=== PATIENT | male | born 1960 | race Caucasian/White ===

== ENCOUNTER 2024-10-08 11:55 | Emergency (ER) | payer MEDICAID, OTHER ==
[~2024-10-08] VITALS: Ht 185.4 cm; Wt 104.5 kg
--- NOTE | 2024-10-08 12:59 | DVH ---
EXAM: CT HEAD WITHOUT CONTRAST INDICATION: HTN, PRITCHETT TECHNIQUE: CT of the head without intravenous contrast. Radiation Dose : 1. Head: CT Dose: CTDI volume is 57 mGy. Dose-length product is 914 mGy*cm The dose indicators for CT are the volume Computed Tomography (CT) Dose Index (CTDIvol) and the Dose Length Product (DLP), and are measured in units of mGy and mGy-cm, respectively. These indicators are not patient dose, but values generated from the CT scanner acquisition factors. The report includes radiation exposure data for exposures received during this examination. COMPARISON: None FINDINGS: There is no evidence of acute intracranial hemorrhage, extra-axial collection, mass effect, midline s hift, herniation or hydrocephalus. The ventricles, sulci and cisterns are age appropriate. The patel-white differentiation is intact. Patchy periventricular and subcortical white matter hypoattenuation is nonspecific but may be related to small vessel ischemic disease. The visualized paranasal sinuses and mastoid air cells are clear. The surrounding soft tissues and osseous structures are unremarkable. IMPRESSION: No acute intracranial abnormality. Radiation optimization: All CT scans at this facility use at least one of these dose optimization sofie hniques: automated exposure control mA and/or kV adjustment per patient size (includes targeted exam s where dose is matched to clinical indication) or iterative reconstruction.
--- NOTE | 2024-10-08 12:59 | DVH ---
CHEST RADIOGRAPH Indication: HTN, PRITCHETT Technique: Single frontal view of the chest was obtained COMPARISON: None FINDINGS: Lines and Tubes: None Lungs: Clear Pleura: No effusion. No pneumothorax. Cardiomediastinal contours: Unremarkable Bones: Unremarkable IMPRESSION: No acute disease.
[2024-10-08 13:42] LABS: Basophils # (auto) 0 10 ^3/uL (0-0.2); Basophils % (auto) 0.7 % (0.0-2.0); Eosinophils # (auto) 0.1 10 ^3/uL (0-0.8); Eosinophils % (auto) 1.6 % (0.0-7.0); Hematocrit 45.8 % (41.0-53.0); Hemoglobin 15.6 g/dL (13.5-17.5); Lymphocytes # (auto) 1.2 10 ^3/uL (0.4-5.4); Lymphocytes % (auto) 17.1 % (10.0-50.0); Mean Corpuscular Hgb Conc. 34.2 g/dL (32.0-36.0); Mean Corpuscular Volume 96.6 fL (80.0-100.0); Monocytes # (auto) 0.6 10 ^3/uL (0-1.3); Monocytes % (auto) 8.6 % (0.0-12.0); Neutrophils # (auto) 4.9 10 ^3/uL (1.6-8.6); Nucleated Red Blood Cells % 0.1 %; Platelet Count (auto) 151 10^3/uL (140-450); Red Blood Cells 4.74 10^6/uL (4.5-5.90); Red Cell Distribution Width 14.1 % (11.8-14.3); White Blood Cell 6.8 10^3/uL (4.4-10.8)
[2024-10-08 14:07] LABS: Albumin 4.3 g/dL (3.2-4.8); Alkaline Phosphatase 79 U/L (46-116); Anion Gap 7 (5-15); Aspartate Aminotransferase 35 U/L (13-40); BUN/Creatinine Ratio 17.2 (10.0-20.0); Blood Urea Nitrogen 16 mg/dL (9-23); Calcium 10.1 mg/dL (8.7-10.4); Carbon Dioxide 29 mmol/L (20-31); Chloride 104 mmol/L (98-107); Potassium 4.6 mmol/L (3.5-5.1); Sodium 140 mmol/L (136-145)
[2024-10-08 14:08] LABS: Bilirubin, Total 0.8 mg/dL (0.2-1.0); Total Protein 6.9 g/dL (5.7-8.2)
[2024-10-08 14:21] LABS: Alanine Aminotransferase 51 U/L (7-40); Glucose 159 mg/dL (74-106)
--- NOTE | 2024-10-08 16:44 | ED.PDOC ---
HPI Comments HPI: 64 Y M, with PMHX HTN, HLD, DM and A-FIB presents to the ED with CC of high blood pressure. Patient states, that he woke up last night on 10/07/22 with a mild sinus headache and due to his medical history decided to check his blood pressure; which read at 219/125 at 0300. Patient relays, that he recently stopped taking his medication due to a dental procedure which he was scheduled for and believes that his symptoms are in relation to this. Patient denies tobacco usage, illicit drug usage, or ETOH consumption. Patient denies headache, chest pain, chills, N/V/D or body aches. Initial Vital Signs: Temp : 99.8 BP: 171/98 HR:57 RR:18 SpO2: 96 Past Medical History: HTN, HLD, DM, AFIB Past Surgical History: Denies Social History: Denies smoking, ETOH, or drug use. Medications: ELIQUIS, LISINOPRIL, METOPROL Allergies: NKDA REVIEW OF SYSTEMS: CONSTITUTIONAL: Denies acute: fever, diaphoresis, chills, generalized weakness. HEAD: Denies acute: headache, photophobia Eyes: Denies acute: Double vision, vision loss, eye pain, eye discharge. EARS: Denies acute: tinnitus, hearing loss, ear discharge, ear pain, THROAT: Denies acute: sore throat, swelling, difficulty swallowing , pain with swallowing, change in voice. NECK: Denies acute: neck pain, neck swelling, stiff neck. HEART: Denies acute : chest pain, palpitations, LUNGS: Denies acute: SOB, wheezing, cough, hemoptysis ABDOMEN: Denies acute: abdominal pain, Nausea, Vomiting, diarrhea, melena , hematemesis, hematochezia SKIN: Denies acute: rash, redness, lesions, itchiness. EXTREMITIES: Denies acute: calf pain, numbness, tingling, weakness, denies pain in extremity. Denies acute: Low back pain. Neuro: Denies acute: focal neurological deficit, motor or sensory focal neurological deficit, tremors, seizure like activity, confusion, dizziness, change in mental status, loss of bowel or bladder function, cauda equina like symptoms. : Denies acute: dysuria, hematuria, flank pain, increase in urinary frequency. PSYCH: Denies acute: hallucination, suicidal ideation, homicidal ideation. PHYSICAL EXAM: General: no acute distress, awake and alert. Head: normocephalic, atraumatic. Neck: supple, trachea is midline, no swelling. Throat: Normal phonation. Eyes:, no erythema, no purulent discharge, no proptosis, no icterus. Heart: regular rate, regular rhythm, no significant murmur appreciated. Lungs: no apparent respiratory distress, Able to speak in full sentences. No wheezing, no rhonchi, no crackles. No stridors Clear to auscultation bilaterally. Abdomen: non tender to palpation, non distended, soft, no guarding, no rebound, + bowel sounds. Neuro: Awake, Alert, oriented to name, self, situation, follows commands GCS=15. Speech is normal. Skin: no petechia, no purpura, no cyanosis, non-pale, not jaundice. Lower extremities: --no - Pitting edema no deformity, no focal swelling, no calf TTP. Makes eye contact. moves all four extremities. Face: no apparent facial droop. Ambulating in the ED independently. Chief Complaint: High Blood Pressure Time Seen by MD: 16:00 Primary Care Provider: OLMAN Reviewed Notes: Nurses Notes, Medications, Allergies Allergies: Coded Allergies: NO KNOWN ALLERGIES (Unverified , 10/06/24) Information Source: Patient Mode of Arrival: Ambulatory Timing: Days Duration: Since onset Prehospital treatment: None Cardiac Risk Factors: None PE Risk Factors: None History of: None Was a procedure done? Was a procedure done?: No CP Differential Dx Differential Diagnosis: Anxiety / Panic Attack Differential Diagnosis: HTN Accelerated X-Ray, Labs, Meds, VS Vital Signs Date Time Temp Pulse Resp B/P (MAP) Pulse Ox O2 Delivery O2 Flow Rate FiO2 10/08/24 16:46 72 16 138/84 (102) 98 10/08/24 12:34 99.8 57 18 171/90 (117) 96 10/08/24 12:30 60 16 139/74 (95) 98 10/08/24 12:08 53 Lab Test 10/08/24 14:45 10/08/24 12:59 Range/Units Troponin I High Sensitivity < 3 L 3 L </=54 ng/L White Blood Count 6.8 4.4-10.8 10^3/uL Red Blood Count 4.74 4.5-5.90 10^6/uL Hemoglobin 15.6 13.5-17.5 g/dL Hematocrit 45.8 41.0-53.0 % Mean Corpuscular Volume 96.6 80.0-100.0 fL Mean Corpuscular Hemoglobin 33.0 H 28.0-32.0 pg Mean Corpuscular Hemoglobin Concent 34.2 32.0-36.0 g/dL Red Cell Distribution Width 14.1 11.8-14.3 % Platelet Count 151 140-450 10^3/uL Mean Platelet Volume 8.6 6.9-10.8 fL Neutrophils (%) (Auto) 72.0 37.0-80.0 % Lymphocytes (%) (Auto) 17.1 10.0-50.0 % Monocytes (%) (Auto) 8.6 0.0-12.0 % Eosinophils (%) (Auto) 1.6 0.0-7.0 % Basophils (%) (Auto) 0.7 0.0-2.0 % Neutrophils # (Auto) 4.9 1.6-8.6 10 ^3/uL Lymphocytes # (Auto) 1.2 0.4-5.4 10 ^3/uL Monocytes # (Auto) 0.6 0-1.3 10 ^3/uL Eosinophils # (Auto) 0.1 0-0.8 10 ^3/uL Basophils # (Auto) 0 0-0.2 10 ^3/uL Nucleated Red Blood Cells 0.1 % Sodium Level 140 136-145 mmol/L Potassium Level 4.6 3.5-5.1 mmol/L Chloride Level 104 98-107 mmol/L Carbon Dioxide Level 29 20-31 mmol/L Anion Gap 7 5-15 Blood Urea Nitrogen 16 9-23 mg/dL Creatinine 0.93 0.700-1.30 mg/dL Glomerular Filtration Rate Calc 91 >90 mL/min BUN/Creatinine Ratio 17.2 10.0-20.0 Serum Glucose 159 H 74-106 mg/dL Lactic Acid Level 1.3 0.4-2.0 mmol/L Calcium Level 10.1 8.7-10.4 mg/dL Total Bilirubin 0.8 0.2-1.0 mg/dL Aspartate Amino Transferase (AST) 35 13-40 U/L Alanine Aminotransferase (ALT) 51 H 7-40 U/L Alkaline Phosphatase 79 46-116 U/L Total Protein 6.9 5.7-8.2 g/dL Albumin 4.3 3.2-4.8 g/dL Time of 1ST Reevaluation: 16:48 Reevaluation 1ST: Resolved Patient Education/Counseling: Diagnosis, Treatment Family Education/Counseling: No Family Present Departure 1 Departure Time of Disposition: 16:47 Impression: Primary Impression: Hypertension Disposition: 01 HOME / SELF CARE / HOMELESS Condition: Stable Additional Instructions: Additional discharge instructions: You MUST follow-up with your primary care/family doctor in 1 to 2 days. If you are unable to see your primary care/family doctor, please return to our emergency room for re-assessment and re-evaluation in 1 to 2 days. Return to the emergency room here in our facility or to the nearest ER [facility] if your symptoms change or worsen. CONSULTATIONS: you MUST Follow-up for consultation as soon as possible with: -cardiology in 1-2 days. Please call for appointment. You MUST call the consultants office yourself to make an appointment. You may need to arrange that through your insurance and/or your primary/family doctor. If you are unable to see the sales consultant in 1 to 2 days, you must return to our emergency room (or any other ER of your choice) for re-assessment and re- evaluation. Adequate fluid hydration. Salt restrictions. Monitoring blood pressure at home at least 3 times a day. Discharged With: Self Critical Care Note Critical Care Time?: No Stability Stability form required: No Heart Score Heart Score: Heart Score Response (Comments) Value History N/A 0 EKG N/A 0 Age N/A 0 Risk Factors N/A 0 Troponin N/A 0 Total 0 I personally scribed for DARREN COLEMAN DO ([email or web address]) on 10/08/24 at 16:44. Electronically submitted by Edwige Frank ([email or web address]). I personally scribed for DARREN COLEMAN DO ([email or web address]) on 10/08/24 at 16:54. Electronically submitted by Edwige Frank ([email or web address]). DARREN COLEMAN DO Oct 08, 2024 16:44
[2024-10-08 16:46] VITALS: BP 138/84
[2024-10-08 16:58] VITALS: PULSE 72; RESP 16; O2SAT 98
--- NOTE | 2024-10-08 18:52 | ECG ---
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
== END 2024-10-08 16:59 | disposition home or self-care (01) ==
LOC: ER 11:56
DX: I10 Essential (primary) hypertension (principal); E11.9 Type 2 diabetes mellitus without complications; E78.5 Hyperlipidemia, unspecified; I48.91 Unspecified atrial fibrillation; R51.9 Headache, unspecified
CPT/HCPCS: 36415; 70450; 71045; 80053; 83605; 84484; 85025; 93005

== ENCOUNTER 2024-10-10 00:22 | Emergency (ER) | payer OTHER ==
[~2024-10-10] VITALS: Ht 185.4 cm; Wt 105.2 kg
[2024-10-10 03:55] VITALS: BP 144/71; PULSE 60; RESP 16; TEMP 97.4; O2SAT 98
--- NOTE | 2024-10-10 04:00 | ED.PDOC ---
History of Present Illness HPI Comments * 64-year-old came to ER for high blood pressure. Patient has history of hypertension and diabetes, and has good compliance to his medications. Noted for the past few days his blood pressure has been elevated, and he has been seen here the past 2 nights were similar complaints. Earlier at home started having headaches and noted that his blood pressure was systolic 170 so he decided to come back to the ER. Upon arrival blood pressure was 140/78 mmHg. Chief Complaint: High Blood Pressure Time Seen by MD: 03:59 Primary Care Provider: OLMAN Reviewed Notes: Nurses Notes Allergies: Coded Allergies: NO KNOWN ALLERGIES (Unverified , 10/06/24) Information Source: Patient Mode of Arrival: Ambulatory Severity: Moderate Timing: Days Duration: Intermittent Prehospital treatment: None Past Medical History PAST MEDICAL HISTORY: AFIB, DM, HTN Surgical History: Denies all surgeries Family History Family History: Reviewed,noncontributory to illness Social History Smoker: Non-Smoker Alcohol: Denies ETOH Use Drugs: Denies Drug Use Lives In: Home Constitutional: denies: chills, diaphoresis, fatigue, fever, malaise, sweats, weakness, others EENTM: denies: blurred vision, double vision, ear bleeding, ear discharge, ear drainage, ear pain, ear ringing, eye pain, eye redness, hearing loss, mouth pain, mouth swelling, nasal discharge, nose bleeding, nose congestion, nose pain, photophobia, tearing, throat pain, throat swelling, voice changes, others Respiratory: denies: cough, hemoptysis, orthopnea, SOB at rest, shortness of breath, SOB with excertion, stridor, wheezing, others Cardiovascular: denies: chest pain, dizzy spells, diaphoresis, Dyspnea on exertion, edema, irregular heart beat, left arm pain, lightheadedness, palpitations, PND, syncope, others Gastrointestinal: denies: abdomen distended, abdominal pain, blood streaked bowels, constipated, diarrhea, dysphagia, difficulty swallowing, hematemesis, melena, nausea, poor appetite, poor fluid intake, rectal bleeding, rectal pain, vomiting, others Genitourinary: denies: burning, dysuria, flank pain, frequency, hematuria, incontinence, penile discharge, penile sore, pain, testicle pain, testicle swelling, urgency, others Neurological: reports: headache; denies: dizziness, fainting, left sided numbness, left sided weakness, numbness, paresthesia, pre-existing deficit, right sided numbness, right sided weakness, seizure, speech problems, tingling, tremors, weakness, others Musculoskeletal: denies: back pain, gout, joint pain, joint swelling, muscle pain, muscle stiffness, neck pain, others Integumetry: denies: bruises, change in color, change in hair/nails, dryness, laceration, lesions, lumps, rash, wounds, others Allergic/Immunocompromised: denies: Difficulty Healing, Frequent Infections, Hives, Itching, others Hematologic/Lymphatic: denies: anemia, blood clots, easy bleeding, easy bruising, swollen glands, others Endocrine: denies: excessive hunger, excessive sweating, excessive thirst, excessive urination, flushing, intolerance to cold, intolerance to heat, unexplained weight gain, unexplained weight loss, others Psychiatric: denies: anxiety, bipolar disorder, depression, hopeless, panic disorder, schizophrenia, sleepless, suicidal, others Physical Exam General Appearance: No Apparent Distress, Normal HEENT: Normal ENT Inspection, Pharynx Normal, TMs Normal Neck: Full Range of Motion, Non-Tender, Normal, Normal Inspection Respiratory: Chest Non-Tender, Lungs Clear, No Accessory Muscle Use, No Respiratory Distress, Normal Breath Sounds Cardiovascular: No Edema, No JVD, No Murmur, No Gallop, Normal Peripheral Pulses, Regular Rate/Rhythm Breast Exam: Deferred Gastrointestinal: No Organomegaly, Non Tender, No Pulsatile Mass, Normal Bowel Sounds, Soft Genitalia: Deferred Pelvic: Deferred Rectal: Deferred Extremities: No calf tenderness, Normal capillary refill, Normal inspection, Normal range of motion, Non-tender, No pedal edema Musculoskeletal : Apperance: Normal Neurologic: Alert, automotive service 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 Was a procedure done?: No Differential Dx Considerations may include: Pneumonia of her respiratory tract infection PE pulmonary effusion NE angina atypical chest pain X-Ray, Labs, Meds, VS Vital Signs Date Time Temp Pulse Resp B/P (MAP) Pulse Ox O2 Delivery O2 Flow Rate FiO2 10/10/24 03:55 97.4 60 16 144/71 (95) 98 97.4 10/10/24 03:55 60 16 98 Room Air* 0 21 10/10/24 00:44 98.0 63 16 140/78 (98) 98 Time of 1ST Reevaluation: 03:55 Reevaluation 1ST: Unchanged Patient Education/Counseling: Diagnosis, Treatment Family Education/Counseling: No Family Present Departure 1 Departure Time of Disposition: 04:28 Impression: Primary Impression: Hypertension Qualified Codes: I10 - Essential (primary) hypertension Disposition: 01 HOME / SELF CARE / HOMELESS Condition: Stable Additional Instructions: Reassessed patient, vital signs stable. Denies any new symptoms. Patient is able to tolerate PO and ambulate/be mobile at their baseline without concern. Risks and benefits of all medications given or prescribed, if any, discussed. All lab work, imaging and diagnostic studies were reviewed by me. The patient was counseled extensively on my clinical impression, diagnosis, expected course of the disease, and plan, including their follow-up care. Will discharge patient. Patient instructed to follow up with Primary Care Physician within 24-48 hours. Strict return precautions given for further exacerbation of symptoms or for new symptoms. The patient was given the opportunity to ask questions and all questions were answered by myself and the nursing/tech staff. Patient is in agreement with the care plan. The patient verbally expressed understanding of the discharge instructions, including the reasons to return to the Emergency Department. Discharged With: Self Critical Care Note Critical Care Time?: No Stability Stability form required: No Heart Score Heart Score: Heart Score Response (Comments) Value History N/A 0 EKG N/A 0 Age N/A 0 Risk Factors N/A 0 Troponin N/A 0 Total 0 I personally scribed for DILLON HOUSTON MD ([email or web address]) on 10/10/24 at 04:00. Flora ctronically submitted by Kirk Strong ([email or web address]). DILLON HOUSTON MD Oct 10, 2024 04:00
== END 2024-10-10 04:14 | disposition home or self-care (01) ==
LOC: ER 00:22
DX: I10 Essential (primary) hypertension (principal); E11.9 Type 2 diabetes mellitus without complications

== ENCOUNTER 2024-12-07 04:32 | Inpatient (IN) | payer OTHER ==
[~2024-12-07] VITALS: Ht 185.4 cm; Wt 103.5 kg
--- NOTE | 2024-12-07 04:53 | ECG ---
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
--- NOTE | 2024-12-07 04:54 | ED.PDOC ---
HPI Comments 64-year-old male with a history of hypertension, diabetes, and AFib brought in by family complaining of palpitations that woke him from sleep about an hour and a half ago. He denies any chest pain, shortness a breath, nausea, vomiting or diaphoresis. He does state that his heart is racing. He also admits to drinking alcohol heavily yesterday afternoon. Chief Complaint: Palpitations Time Seen by MD: 04:44 Primary Care Provider: OLMAN Allergies: Coded Allergies: NO KNOWN ALLERGIES (Unverified , 10/06/24) Mode of Arrival: Ambulatory Past Medical History PAST MEDICAL HISTORY: AFIB, DM, HTN Surgical History: Denies all surgeries Family History Family History: Reviewed,noncontributory to illness Social History Smoker: Non-Smoker Alcohol: Occasionally Drugs: Denies Drug Use Lives In: Home All Other Systems: Reviewed and Negative (Comprehensive systems review obtained and negative except for what is stated in the HPI.) Physical Exam General Appearance: No Apparent Distress HEENT: PERRL/EOMI Neck: Full Range of Motion, Normal Inspection Respiratory: Lungs Clear, No Accessory Muscle Use, No Respiratory Distress, Normal Breath Sounds Cardiovascular: Irregular, No Edema, No JVD, Tachycardia Breast Exam: Deferred Gastrointestinal: Non Tender, Soft Genitalia: Deferred Pelvic: Deferred Rectal: Deferred Extremities: Normal inspection, Normal range of motion, Non-tender, No pedal edema Neurologic: Alert (Oriented x4), Normal Affect, Normal Mood, Other (Ambulatory. No gross focal deficit.) Cerebellar Function: NOT DONE Reflexes: NOT DONE Skin: Dry, Normal Color, Warm Lymphatic: NOT DONE EKG EKG : Comments AFib with RVR, rate 141, normal QRS interval, QTC prolonged at 493, normal axis, normal QRS, lateral ST depression Was a procedure done? Was a procedure done?: No CP Differential Dx Differential Diagnosis: A-fib, A-Flutter, Anxiety / Panic Attack, Atrial Dysrhythmia, SC, Pulmonary Embolus Differential Diagnosis: CHF Differential Diagnosis: Pericarditis X-Ray, Labs, Meds, VS Vital Signs Date Time Temp Pulse Resp B/P (MAP) Pulse Ox O2 Delivery O2 Flow Rate FiO2 12/07/24 06:00 142 101/62 12/07/24 05:51 145 101/52 12/07/24 05:32 133 12/07/24 05:19 98.2 147 19 127/87 (100) 97 98.2 12/07/24 05:16 147 19 99 Room Air* 0 21 12/07/24 05:13 145 127/87 12/07/24 04:39 141 12/07/24 04:36 97.9 141 14 147/78 (101) 97 Lab Test 12/07/24 04:46 12/07/24 04:44 Range/Units White Blood Count 6.3 4.4-10.8 10^3/uL Red Blood Count 4.02 L 4.5-5.90 10^6/uL Hemoglobin 13.1 L 13.5-17.5 g/dL Hematocrit 37.8 L 41.0-53.0 % Mean Corpuscular Volume 93.8 80.0-100.0 fL Mean Corpuscular Hemoglobin 32.5 H 28.0-32.0 pg Mean Corpuscular Hemoglobin Concent 34.7 32.0-36.0 g/dL Red Cell Distribution Width 13.7 11.8-14.3 % Platelet Count 158 140-450 10^3/uL Mean Platelet Volume 8.7 6.9-10.8 fL Neutrophils (%) (Auto) 55.8 37.0-80.0 % Lymphocytes (%) (Auto) 26.9 10.0-50.0 % Monocytes (%) (Auto) 12.7 H 0.0-12.0 % Eosinophils (%) (Auto) 4.1 0.0-7.0 % Basophils (%) (Auto) 0.5 0.0-2.0 % Neutrophils # (Auto) 3.5 1.6-8.6 10 ^3/uL Lymphocytes # (Auto) 1.7 0.4-5.4 10 ^3/uL Monocytes # (Auto) 0.8 0-1.3 10 ^3/uL Eosinophils # (Auto) 0.3 0-0.8 10 ^3/uL Basophils # (Auto) 0 0-0.2 10 ^3/uL Nucleated Red Blood Cells 0.2 % Prothrombin Time 10.9 9.3-11.8 sec Prothrombin Time INR 1.03 0.9-1.15 Activated Partial Thromboplast Time 31.0 24.5-34.5 SEC Sodium Level 134 L 136-145 mmol/L Potassium Level 4.1 3.5-5.1 mmol/L Chloride Level 99 98-107 mmol/L Carbon Dioxide Level 24 20-31 mmol/L Anion Gap 11 5-15 Blood Urea Nitrogen 38 H 9-23 mg/dL Creatinine 1.02 0.700-1.30 mg/dL Glomerular Filtration Rate Calc 81 >90 mL/min BUN/Creatinine Ratio 37.3 H 10.0-20.0 Serum Glucose 105 74-106 mg/dL Calcium Level 11.1 H 8.7-10.4 mg/dL Magnesium Level 1.6 1.6-2.6 mg/dL Troponin I High Sensitivity 5 </=54 ng/L B-Type Natriuretic Peptide 34.36 0-100 pg/mL Plasma/Serum Blood Alcohol Pending Urine Color Pending Urine Clarity Pending Urine pH Pending Urine Specific Donald Pending Urine Protein Pending Urine Ketones Pending Urine Blood Pending Urine Nitrite Pending Urine Bilirubin Pending Urine Urobilinogen Pending Urine Leukocyte Esterase Pending Urine RBC Pending Urine Microscopic WBC Pending Urine Squamous Epithelial Cells Pending Urine Bacteria Pending Urine Glucose Pending Urine Opiates Screen Pending Urine Fentanyl Screen Pending Urine Barbiturates Screen Pending Urine Phencyclidine Screen Pending Urine Amphetamines Screen Pending Urine Benzodiazepines Screen Pending Urine Cocaine Screen Pending Urine Cannabinoids Screen Pending Current Medications Medications (Trade) Dose Ordered Sig/Karthikeyan Route Start Time Stop Time Status Last Admin Metoprolol Tartrate (Lopressor) 2.5 mg ONCE ONCE IV 12/07/24 05:00 12/07/24 05:01 DC 12/07/24 05:13 Amiodarone HCl 100 ml @ 600 mls/hr ONCE ONCE IV 12/07/24 05:45 12/07/24 05:54 DC 12/07/24 05:51 PROCEDURE(s): CXRP - CHEST PORTABLE REASON: rapid afib ORDER NUMBER(s): [id number], ACCESSION NUMBER(s): [id number] CHEST RADIOGRAPH Indication: rapid afib Technique: Single frontal view of the chest was obtained COMPARISON: XY CHEST PORTABLE on DOS: 10/08/24 FINDINGS: Lines and Tubes: None Lungs: Clear Pleura: No effusion. No pneumothorax. Cardiomediastinal contours: Unremarkable Bones: Unremarkable IMPRESSION: No acute disease. X-Ray, Labs, Meds, VS Comment 64-year-old male with a history of hypertension, diabetes, and AFib brought in by family complaining of palpitations that woke him from sleep about an hour and a half ago. Vitals remarkable for heart rate 141, BP 147/78 Exam remarkable for irregularly irregular tachycardic heart rhythm Rhythm strip independently interpreted by me: AFib with RVR, rate 141, no PVCs Chest x-ray unremarkable CBC unremarkable, basic metabolic panel remarkable for sodium 134, BUN 38, calcium 11.1, BNP normal, troponin negative, UA, alcohol and drug screen pending Patient treated with the following in the ED: Metoprolol 2.5 mg IV with no response, metoprolol 5 mg IV with minimal response, amiodarone 150 mg IV bolus followed by an amiodarone infusion per protocol On re-evaluation, heart rate has improved to 118 . Other vitals were stable. Plan is to admit the patient for ongoing rate control and Cardiology evaluation. Time of 1ST Reevaluation: 06:19 Reevaluation 1ST: Improved Patient Education/Counseling: Diagnosis, Treatment Family Education/Counseling: No Family Present Departure 1 Departure Time of Disposition: 04:53 Impression: Primary Impression: Atrial fibrillation with RVR Disposition: ADMITTED INPATIENT Admit to: Tele Condition: Guarded Critical Care Note Critical Care Time?: Yes (45 min-critical care time only) Critical care comment: Critical care time including multiple bedside re-evaluations, review of lab and imaging studies, and discussion of the case with the admitting provider. Patient is high risk for hemodynamic decompensation. Stability Stability form required: No Heart Score Heart Score: Heart Score Response (Comments) Value History Slightly Suspicious [address]-Deviation 2 Age >65 2 Risk Factors >3 or Hx ASHD 2 Troponin N/A 0 Total 6 VADIM MACHUCA MD Dec 07, 2024 04:54
[2024-12-07] MEDS: METOPROLOL TARTRATE 1MG/1ML-5ML VIAL IV ONE ×3 (05:13→13:40)
[2024-12-07 05:16] VITALS: PULSE 147; RESP 19; O2SAT 99
[2024-12-07 05:16] LABS: Basophils # (auto) 0 10 ^3/uL (0-0.2); Basophils % (auto) 0.5 % (0.0-2.0); Eosinophils # (auto) 0.3 10 ^3/uL (0-0.8); Eosinophils % (auto) 4.1 % (0.0-7.0); Hematocrit 37.8 % (41.0-53.0); Hemoglobin 13.1 g/dL (13.5-17.5); Lymphocytes # (auto) 1.7 10 ^3/uL (0.4-5.4); Lymphocytes % (auto) 26.9 % (10.0-50.0); Mean Corpuscular Hemoglobin 32.5 pg (28.0-32.0); Mean Corpuscular Hgb Conc. 34.7 g/dL (32.0-36.0); Mean Corpuscular Volume 93.8 fL (80.0-100.0); Monocytes # (auto) 0.8 10 ^3/uL (0-1.3); Monocytes % (auto) 12.7 % (0.0-12.0); Neutrophils # (auto) 3.5 10 ^3/uL (1.6-8.6); Neutrophils % (auto) 55.8 % (37.0-80.0); Nucleated Red Blood Cells % 0.2 %; Platelet Count (auto) 158 10^3/uL (140-450); Red Blood Cells 4.02 10^6/uL (4.5-5.90); Red Cell Distribution Width 13.7 % (11.8-14.3); White Blood Cell 6.3 10^3/uL (4.4-10.8)
[2024-12-07 05:28] LABS: INR 1.03 (0.9-1.15); Prothrombin Time 10.9 sec (9.3-11.8)
[2024-12-07 05:32] LABS: Chloride 99 mmol/L (98-107); Potassium 4.1 mmol/L (3.5-5.1)
[2024-12-07 05:33] LABS: Anion Gap 11 (5-15); Carbon Dioxide 24 mmol/L (20-31); Sodium 134 mmol/L (136-145)
[2024-12-07 05:38] LABS: Glucose 105 mg/dL (74-106)
[2024-12-07 05:39] LABS: Urine Bacteria None Seen /hpf (None Seen)
[2024-12-07 05:39] LABS: BUN/Creatinine Ratio 37.3 (10.0-20.0)
--- NOTE | 2024-12-07 05:42 | ECG ---
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
--- NOTE | 2024-12-07 05:43 | DVH ---
CHEST RADIOGRAPH Indication: rapid afib Technique: Single frontal view of the chest was obtained COMPARISON: XY CHEST PORTABLE on DOS: 10/08/24 FINDINGS: Lines and Tubes: None Lungs: Clear Pleura: No effusion. No pneumothorax. Cardiomediastinal contours: Unremarkable Bones: Unremarkable IMPRESSION: No acute disease.
[2024-12-07 05:48] LABS: Blood Urea Nitrogen 38 mg/dL (9-23); Calcium 11.1 mg/dL (8.7-10.4); Magnesium 1.6 mg/dL (1.6-2.6)
[2024-12-07] MEDS: AMIODARONE BOLUS KIT 100 ML IV ONE (05:51)
[2024-12-07] MEDS: AMIODARONE 360mg/200mL PREMIX 200 ML IV ONE (05:59)
[2024-12-07 06:08] LABS: Urine Blood Negative /uL (Negative); Urine Clarity Clear (Clear); Urine Protein, UAD Negative (Negative); Urine Specific Gravity 1.006 (1.001-1.035); Urine Squamous Epithelial Cell None Seen /hpf (<5); Urine Urobilinogen Normal (Negative); Urine WBC < 1 /HPF (0-3)
[2024-12-07] MEDS: SODIUM CHLORIDE 0.9% 1,000 ML IV ONE (06:31)
[2024-12-07 06:35] LABS: Urine Color STRAW (Yellow)
[2024-12-07 06:38] LABS: Amphetamine Screen, Urine Neg (NEGATIVE); Barbiturate Scree,Urine Neg (NEGATIVE); Cannabinoid Screen, Urine Neg (NEGATIVE); Cocaine Screen, Urine Neg (NEGATIVE); Opiate Scree,Urine Neg (NEGATIVE); Phencyclidine Screen, Urine Neg (NEGATIVE)
[2024-12-07 06:52] LABS: Blood Alcohol 4.1 mg/dL (<10)
[2024-12-07] MEDS ORDERED: HYDROcodone-ACET 5/325MG TAB PO PRN (07:00)
[2024-12-07] MEDS ORDERED: ACETAMINOPHEN 325 MG TAB PO PRN (07:00)
[2024-12-07] MEDS ORDERED: DOCUSATE SOD 100 MG CAP PO PRN (07:00)
[2024-12-07] MEDS ORDERED: MORPHINE SULFATE INJ 2 MG/ml SYRG IV PRN (07:00)
[2024-12-07] MEDS ORDERED: NITROGLYCERIN 0.4 MG SL TAB SL PRN (07:00)
[2024-12-07] MEDS ORDERED: ONDANSETRON HCL 4 MG/2 ML VIAL IV PRN (07:00)
--- NOTE | 2024-12-07 07:45 | DVHHP2 ---
History of Present Illness Reason for Visit: Palpitations History of Present Illness Aristeo Romero is a 64-year-old male with past medical history of hypertension, hyperlipidemia, atrial fibrillation, and diabetes, who came to the hospital due to palpitations. Patient states he was awoken about 0300 due to the palpitations. Patient states that he has atrial fibrillation that was diagnosed about 9 months ago. He saw a shoe worker and completed a full work up that he states came back normal, but did not follow up sense then due to him retiring and insurance changing. He states he is compliant with his medications and does take his blood thinner. He had 5-6 beers yesterday, but typically only drinks occasionally, maybe once every couple of months. Cardiovascular: AFIB, HTN, hyperipidemia Endocrine: Diabetes Past Surgical History: None Family History: None Smoke: No ALCOHOL: rare Drugs: None Lives: Alone Domestic Violence: Neg Review of Systems Constitutional: No: Fever, Chills, Sweats, Weakness, Malaise, Other Eyes: No: Pain, Vision change, Conjunctivae inflammation, Eyelid inflammation, Other, Redness ENT: No: Ear pain, Ear discharge, Nose pain, Nose discharge, Nose congestion, Mouth pain, Mouth swelling, Throat pain, Throat swelling, Other Respiratory: No: Cough, Dry, Shortness of breath, SOB with excertion, Wheezing, Hemoptysis, Pleuritic Pain, Sputum, Wheezing, Other Cardiovascular: Palpitations; No: Chest Pain, Orthopnea, Paroxysmal Noc. Dyspnea, Edema, Lt Headedness, Other Gastrointestinal: No: Nausea, Vomiting, Abdominal Pain, Diarrhea, Constipation, Melena, Hematochezia, Other Genitourinary: No Dysuria, No Frequency, No Incontinence, No Hematuria, No Retention, No Other Musculoskeletal: No: other, neck pain, shoulder pain, arm pain, back pain, hand pain, leg pain, foot pain Skin: No: Rash, Lesions, Jaundice, Bruising, Other Neurological: No: Weakness, Numbness, Incoordination, Change in speech, Confusion, Seizures, Other Allergies: Coded Allergies: NO KNOWN ALLERGIES (Unverified , 10/06/24) Exam Vital Signs Vital Signs Date Time Temp Pulse Resp B/P (MAP) Pulse Ox O2 Delivery O2 Flow Rate FiO2 12/07/24 06:33 98.4 125 19 95/50 (65) 98 98.4 12/07/24 05:16 Room Air* 0 21 General Appearance: Alert, Oriented X3, Cooperative, mild distress HEENT: Atraumatic, PERRLA Respiratory: Clear to auscultation, Normal air movement Cardiovascular: Normal S1, Normal S2, Other (A-fib with RVR) Abdominal: Normal bowel sounds, Soft, No tenderness Extremities: No clubbing, No cyanosis, No edema, Normal pulses, No tenderness/swelling Skin: No rashes, No breakdown, No significant lesion Neuro: Normal gait, Normal speech, Strength at 5/5 X4 ext Psych/Mental Status: Mental status NL, Mood NL Labs/Xrays Labs Test 12/07/24 04:46 12/07/24 04:44 Range/Units White Blood Count 6.3 4.4-10.8 10^3/uL Red Blood Count 4.02 L 4.5-5.90 10^6/uL Hemoglobin 13.1 L 13.5-17.5 g/dL Hematocrit 37.8 L 41.0-53.0 % Mean Corpuscular Volume 93.8 80.0-100.0 fL Mean Corpuscular Hemoglobin 32.5 H 28.0-32.0 pg Mean Corpuscular Hemoglobin Concent 34.7 32.0-36.0 g/dL Red Cell Distribution Width 13.7 11.8-14.3 % Platelet Count 158 140-450 10^3/uL Mean Platelet Volume 8.7 6.9-10.8 fL Neutrophils (%) (Auto) 55.8 37.0-80.0 % Lymphocytes (%) (Auto) 26.9 10.0-50.0 % Monocytes (%) (Auto) 12.7 H 0.0-12.0 % Eosinophils (%) (Auto) 4.1 0.0-7.0 % Basophils (%) (Auto) 0.5 0.0-2.0 % Neutrophils # (Auto) 3.5 1.6-8.6 10 ^3/uL Lymphocytes # (Auto) 1.7 0.4-5.4 10 ^3/uL Monocytes # (Auto) 0.8 0-1.3 10 ^3/uL Eosinophils # (Auto) 0.3 0-0.8 10 ^3/uL Basophils # (Auto) 0 0-0.2 10 ^3/uL Nucleated Red Blood Cells 0.2 % Prothrombin Time 10.9 9.3-11.8 sec Prothrombin Time INR 1.03 0.9-1.15 Activated Partial Thromboplast Time 31.0 24.5-34.5 SEC Sodium Level 134 L 136-145 mmol/L Potassium Level 4.1 3.5-5.1 mmol/L Chloride Level 99 98-107 mmol/L Carbon Dioxide Level 24 20-31 mmol/L Anion Gap 11 5-15 Blood Urea Nitrogen 38 H 9-23 mg/dL Creatinine 1.02 0.700-1.30 mg/dL Glomerular Filtration Rate Calc 81 >90 mL/min BUN/Creatinine Ratio 37.3 H 10.0-20.0 Serum Glucose 105 74-106 mg/dL Calcium Level 11.1 H 8.7-10.4 mg/dL Magnesium Level 1.6 1.6-2.6 mg/dL Troponin I High Sensitivity 5 </=54 ng/L B-Type Natriuretic Peptide 34.36 0-100 pg/mL Plasma/Serum Blood Alcohol 4.1 <10 mg/dL Urine Color Straw Yellow Urine Clarity Clear Clear Urine pH 5.0 5.0-9.0 Urine Specific [place] 1.006 1.001-1.035 Urine Protein Negative Negative Urine Ketones Negative Negative Urine Blood Negative Negative /uL Urine Nitrite Negative Negative Urine Bilirubin Negative Negative Urine Urobilinogen Normal Negative mg/dL Urine Leukocyte Esterase Negative Negative /uL Urine RBC <1 0 - 3 /hpf Urine Microscopic WBC < 1 0-3 /HPF Urine Squamous Epithelial Cells None seen <5 /hpf Urine Bacteria None seen None Seen /hpf Urine Glucose Normal Normal mg/dL Urine Opiates Screen Neg NEGATIVE Urine Fentanyl Screen Neg NEGATIVE Urine Barbiturates Screen Neg NEGATIVE Urine Phencyclidine Screen Neg NEGATIVE Urine Amphetamines Screen Neg NEGATIVE Urine Cocaine Screen Neg NEGATIVE Urine Cannabinoids Screen Neg NEGATIVE CHEST RADIOGRAPH FINDINGS: Lines and Tubes: None Lungs: Clear Pleura: No effusion. No pneumothorax. Cardiomediastinal contours: Unremarkable Bones: Unremarkable IMPRESSION: No acute disease. Assessment/Plan Assessment/Plan Assessment: Atrial fibrillation with RVR, Hypertension, Dehydration, Plan: Admit to Tele, Cardiology consult, IV amiodarone, IV hydration, A1c, TSH, Consider ECHO, Accu checks Q AC&HS with sliding scale, Home medications reconciled, Plan discussed with: Patient My Orders Orders - MELINA VOSS Procedure Category Date Status Time * Cardiology Consult CONS 12/07/24 Verified 06:51 Admit ADMIT 12/07/24 Verified 06:51 Code Status CODE 12/07/24 Verified 06:51 Hydrocodone-Acet PHA 12/07/24 Verified 5/325mg Tab (Howell 07:00 Ondansetron Hcl PHA 12/07/24 Verified (Zofran) 07:00 Docusate Sodium PHA 12/07/24 Verified Capsule (Colace 07:00 Complete Blood Count LAB 12/08/24 Verified 04:00 Comprehensive LAB 12/08/24 Verified Metabolic Panel 04:00 Cardiac DIET 12/07/24 Verified Diet-2gna,Lofat,Lochol Breakfast Condition: Serious GREG 12/07/24 Verified 06:51 Acetaminophen Tablet PHA 12/07/24 Verified (Tylenol Tablet) 07:00 Nitroglycerin [facility] 12/07/24 Verified Sublingual (Ntrostat 07:00 Morphine Sulfate [facility] 12/07/24 Verified Injection 07:00 Stat Ekg For Chest [facility] 12/07/24 Verified Pain 06:51 Notify Md Of Changes [facility] 12/07/24 Verified From Base 06:51 Sewing Room Supervisor For [facility] 12/07/24 Verified 24 Hours 06:51 Emergency Dysrhythmia [facility] 12/07/24 Verified Protocol 06:51 Rhythm Strips Once [facility] 12/07/24 Verified Every Shift 06:51 Oxygen By Nasal RT 12/07/24 Verified Cannula 06:51 Date of Service: Dec 07, 2024 Billing Provider: MELINA VOSS Common Visit Codes: [id number] INP/OBS CARE (MOD) MELINA VOSS Dec 07, 2024 07:45
--- NOTE | 2024-12-07 07:45 | ECG ---
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
[2024-12-07 07:57] VITALS: PULSE 124; O2SAT 97
[2024-12-07] MEDS ORDERED: LISI40TA16 PO (09:22)
[2024-12-07] MEDS ORDERED: AMLO1TAB22 PO (09:22)
[2024-12-07] MEDS ORDERED: APIX5TAB PO (09:22)
[2024-12-07] MEDS ORDERED: CHLO25TA2 PO (09:22)
[2024-12-07] MEDS ORDERED: METF-372 PO (09:22)
[2024-12-07] MEDS ORDERED: ATOR20TA PO (09:22)
[2024-12-07] MEDS ORDERED: SOTA80TA PO (09:22)
[2024-12-07] MEDS ORDERED: DEXTROSE (50%) 50ML SYRG IV PRN (09:30)
--- NOTE | 2024-12-07 11:07 | DVHINCON2 ---
ZECHARIAH MCCARTNEY [facility] 12/07/24 1107: Date Seen: Dec 07, 2024 Referring Physician LIO Rapp Reason for Consultation A-fib with RVR History of Present Illness This is a pleasant 64 y.o. male who presented to the Emergency Room with a chief complaint of palpitations x 1.5 hours. The patient presented with complaints of palpitations associated with mild shortness of breath and some dizziness. Denies chest pain, diaphoresis, or syncopal events. He underwent multiple 12 lead electrocardiogram revealing an atrial fibrillation rhythm with rapid ventricular rate up to the 140s bpm and associated nonspecific ST changes. Serial troponin levels are negative. He used to follow up in the outpatient setting with Dr. Shah, Chief Science Officer, until approximately 9 months ago. At that time, he underwent an unremarkable transthoracic echocardiogram and nonischemic stress test. He was also offered a cardiac ablation which the patient declined. States he has been compliant with his medical therapy at home including sotalol 40 mg q.d. and Eliquis b.i.d. Of note, the patient endorses drinking a couple of beers yesterday. Significant medical history includes unspecified atrial fibrillation on sotalol and Eliquis therapy, hypertension, kkf-qjadzyt-zemhyqyah diabetes mellitus, dyslipidemia, obesity, and alcohol use. Past Medical History Past medical history reviewed. No other significant than mentioned above. Past Surgical History Past surgical history reviewed. No other significant than mentioned above. Family History Family history reviewed. Social History Denies the use of illicit drugs or tobacco use. Admits to occasional alcohol use with latest intake yesterday. Allergies: Coded Allergies: NO KNOWN ALLERGIES (Unverified , 10/06/24) Home Meds Active Scripts Diltiazem HCl Coated Beads (Cardizem Cd) 120 Mg Cap, 120 MG PO DAILY for 30 Days, #30 CAP 2 Refills Prov:BELLO NAVA LABELING SPECIALIST 12/08/24 Reported Medications Metoprolol Succinate (Metoprolol Succinate Er) 25 Mg Tab, 25 MG PO DAILY for 30 Days, MG 12/07/24 Atorvastatin Calcium (Lipitor) 20 Mg Tab, 20 MG PO HS 12/07/24 Chlorthalidone (Chlorthalidone) 25 Mg Tab, 1 TAB PO DAILY 12/07/24 Apixaban Base (ELIQUIS) 5 Mg Tab, 1 TAB PO BID 12/07/24 Lisinopril (Lisinopril) 40 Mg Tab, 1 TAB PO DAILY 12/07/24 Metformin Hydrochloride (Metformin Hcl) 1,000 Mg Tab, 1 TAB PO BID 12/07/24 Amlodipine Besylate (Amlodipine Besylate) 5 Mg Tab, 1 TAB PO DAILY 12/07/24 Sotalol Hcl (Sotalol Hcl) 80 Mg Tab, 80 MG PO DAILY 12/07/24 Home Meds Home medications reviewed. Current Medications Current Medications Medications (Trade) Dose Ordered Sig/Karthikeyan Route PRN Reason Start Time Stop Time Status Last Admin Acetaminophen/ Hydrocodone Bitart ([place]oli 5/325MG Tab) 1 tab Q4HP PRN PO MODERATE PAIN (4-6 PAIN SCALE) 12/07/24 07:00 Ondansetron HCl (Zofran) 4 mg Q4HP PRN IV NAUSEA / VOMITING 12/07/24 07:00 Docusate Sodium (Colace Capsule) 100 mg BIDPRN PRN PO FOR CONSTIPATION 12/07/24 07:00 Acetaminophen (Tylenol Tablet) 650 mg Q6HP PRN PO PAIN SCALE 1-3 OR TEMP>100.4 12/07/24 07:00 Nitroglycerin (Ntrostat Sublingual) 0.4 mg Q5MINP PRN SL FOR CHEST PAIN 12/07/24 07:00 Morphine Sulfate 2 mg Q30M PRN IV FOR CHEST PAIN 12/07/24 07:00 Diagnostic Test (Pha) (Accu-Chek Comfort Curve T) 1 strip ACHS 12/07/24 11:30 Insulin Human Regular (InsuLIN R) HS SC 12/07/24 22:00 Insulin Human Regular (InsuLIN R) AC SC 12/07/24 11:30 Dextrose 50 ml UD PRN IV Blood Sugar LESS THAN 60 12/07/24 09:30 Amlodipine Besylate (Norvasc Tablet) 5 mg DAILY PO 12/07/24 10:00 Apixaban (Eliquis) 5 mg BID PO 12/07/24 10:00 Atorvastatin Calcium (Lipitor) 20 mg HS PO 12/07/24 22:00 Chlorthalidone (Chlorthalidone) 25 mg DAILY PO 12/07/24 10:00 Sotalol HCl (Betapace) 80 mg DAILY PO 12/07/24 10:00 Lisinopril (Zestril Tablet) 40 mg DAILY PO 12/08/24 10:00 Review of Systems Constitutional: No symptom reported Ears, Nose, & Throat: No symptom reported Eyes: No symptom reported Neurological: Dizziness Pulmonary/Respiratory: Mild SOB Cardiovascular: Cardiac palpitations Gastrointestinal: No symptom reported Genitourinary: No symptom reported Musculoskeletal: No symptom reported Skin: No symptom reported Psychiatric: No symptom reported Endocrine: No symptom reported Hemotologic/Lymphatic: No symptom reported Vital Signs Vital Signs Date Time Temp Pulse Resp B/P (MAP) Pulse Ox O2 Delivery O2 Flow Rate FiO2 12/07/24 07:57 97.8 124 19 129/63 (85) 97 97.8 12/07/24 07:57 Room Air* 0 21 Physical Exam General Appearance: Cooperative. Well developed. Well nourished. In no acute distress Head Exam: Normal inspection Neck Exam: Normal inspection. Non-tender. Normal alignment Pulmonary/Respiratory: Chest non-tender. Clear bilateral breath sounds Cardiovascular/Chest: Irregularly irregular rate and rhythm. AFib with RVR 120s bpm. No murmurs. No JVD. Peripheral Pulses: 2+ Radial (R). 2+ Radial (L). 2+ Pedal (R). 2+ Pedal (L) Abdominal Exam: Normal bowel sounds. Soft. Nontender. No hepatospenomegaly. No masses Ankle Exam: Negative ankle edema Lower extremities: Negative lower extremity edema Neuro/Mental Status: A&O x4. Coherent Thoughts/Psych: Normal thought pattern. Appropriate mood and affect. Good judgement and insight Appearance: In no acute distress Skin Exam: Normal inspection. Normal color. Warm. Dry Labs/Diagnostic Data Labs Test 12/07/24 07:51 12/07/24 04:46 12/07/24 04:44 Range/Units Troponin I High Sensitivity 11 </=54 ng/L White Blood Count 6.3 4.4-10.8 10^3/uL Red Blood Count 4.02 L 4.5-5.90 10^6/uL Hemoglobin 13.1 L 13.5-17.5 g/dL Hematocrit 37.8 L 41.0-53.0 % Mean Corpuscular Volume 93.8 80.0-100.0 fL Mean Corpuscular Hemoglobin 32.5 H 28.0-32.0 pg Mean Corpuscular Hemoglobin Concent 34.7 32.0-36.0 g/dL Red Cell Distribution Width 13.7 11.8-14.3 % Platelet Count 158 140-450 10^3/uL Mean Platelet Volume 8.7 6.9-10.8 fL Neutrophils (%) (Auto) 55.8 37.0-80.0 % Lymphocytes (%) (Auto) 26.9 10.0-50.0 % Monocytes (%) (Auto) 12.7 H 0.0-12.0 % Eosinophils (%) (Auto) 4.1 0.0-7.0 % Basophils (%) (Auto) 0.5 0.0-2.0 % Neutrophils # (Auto) 3.5 1.6-8.6 10 ^3/uL Lymphocytes # (Auto) 1.7 0.4-5.4 10 ^3/uL Monocytes # (Auto) 0.8 0-1.3 10 ^3/uL Eosinophils # (Auto) 0.3 0-0.8 10 ^3/uL Basophils # (Auto) 0 0-0.2 10 ^3/uL Nucleated Red Blood Cells 0.2 % Prothrombin Time 10.9 9.3-11.8 sec Prothrombin Time INR 1.03 0.9-1.15 Activated Partial Thromboplast Time 31.0 24.5-34.5 SEC Sodium Level 134 L 136-145 mmol/L Potassium Level 4.1 3.5-5.1 mmol/L Chloride Level 99 98-107 mmol/L Carbon Dioxide Level 24 20-31 mmol/L Anion Gap 11 5-15 Blood Urea Nitrogen 38 H 9-23 mg/dL Creatinine 1.02 0.700-1.30 mg/dL Glomerular Filtration Rate Calc 81 >90 mL/min BUN/Creatinine Ratio 37.3 H 10.0-20.0 Serum Glucose 105 74-106 mg/dL Calcium Level 11.1 H 8.7-10.4 mg/dL Magnesium Level 1.6 1.6-2.6 mg/dL B-Type Natriuretic Peptide 34.36 0-100 pg/mL Thyroid Stimulating Hormone (TSH) 0.27 L 0.55-4.78 uIU/mL Plasma/Serum Blood Alcohol 4.1 <10 mg/dL Urine Color Straw Yellow Urine Clarity Clear Clear Urine pH 5.0 5.0-9.0 Urine Specific [place] 1.006 1.001-1.035 Urine Protein Negative Negative Urine Ketones Negative Negative Urine Blood Negative Negative /uL Urine Nitrite Negative Negative Urine Bilirubin Negative Negative Urine Urobilinogen Normal Negative mg/dL Urine Leukocyte Esterase Negative Negative /uL Urine RBC <1 0 - 3 /hpf Urine Microscopic WBC < 1 0-3 /HPF Urine Squamous Epithelial Cells None seen <5 /hpf Urine Bacteria None seen None Seen /hpf Urine Glucose Normal Normal mg/dL Urine Opiates Screen Neg NEGATIVE Urine Fentanyl Screen Neg NEGATIVE Urine Barbiturates Screen Neg NEGATIVE Urine Phencyclidine Screen Neg NEGATIVE Urine Amphetamines Screen Neg NEGATIVE Urine Benzodiazepines Screen NEGATIVE Urine Cocaine Screen Neg NEGATIVE Urine Cannabinoids Screen Neg NEGATIVE Assessment Atrial fibrillation with rapid ventricular rate, uncontrolled Rule out structural heart disease Hypertension Dyslipidemia Mel-[id number]-ljswthjxc diabetes mellitus Suspected sleep apnea Alcohol use Obesity Plan/Recommendation We will continue the following plan/recommendations (Dr. Espino): * MARIKA and DCCV on 12/08/2024 * Rate control, Cardizem HCL q6h. Metoprolol IV x 1 * DOAC therapy, Eliquis BID * [id number] Score 3 points. HAS-BLED Score 1 point * Avoid Class Ia and Class III antiarrhythmics given QTc at 499 msc * Replete electrolytes< K>4 and Mg>2 * Monitor ECG changes and notify * Consider sleep study as outpatient * Free T4 Case discussed in full detail with Dr. Espino. Scheduled for MARIKA and DCCV on 12/08/2024. All risks and benefits of the procedures were discussed with the patient who agrees to proceed with intervention. All questions answered. Thank you for allowing us to participate in this patient's care. Please call if you have any questions or concerns. This medical document was created using an electronic medical record system with voice recognition software and computerized dictation system. Although this document has been carefully reviewed, there might still be some phonetic and typographical errors. Occasional wrong-word or ``sound-alike substitutions may have occurred due to the inherent limitations of voice recognition software. These areas are purely typographical due to imperfections of the software programs and do not reflect any compromise in the patient's medical care. Please read the chart carefully and recognize, using context, where these substitutions have occurred. Plan discussed with: Patient, Other NYHA Physical activity limitations: NA Date of Service: Dec 07, 2024 Billing Provider: ZECHARIAH MCCARTNEY Cardiology Common Codes: [id number] INP/OBS CARE (High) DENNIS ESPINO MD 12/08/24 1510: Allergies: Coded Allergies: NO KNOWN ALLERGIES (Unverified , 10/06/24) Home Meds Active Scripts Diltiazem HCl Coated Beads (Cardizem Cd) 120 Mg Cap, 120 MG PO DAILY for 30 Days, #30 CAP 2 Refills Prov:BELLO NAVA NP 12/08/24 Reported Medications Metoprolol Succinate (Metoprolol Succinate Er) 25 Mg Tab, 25 MG PO DAILY for 30 Days, MG 12/07/24 Atorvastatin Calcium (Lipitor) 20 Mg Tab, 20 MG PO HS 12/07/24 Chlorthalidone (Chlorthalidone) 25 Mg Tab, 1 TAB PO DAILY 12/07/24 Apixaban Base (ELIQUIS) 5 Mg Tab, 1 TAB PO BID 12/07/24 Lisinopril (Lisinopril) 40 Mg Tab, 1 TAB PO DAILY 12/07/24 Metformin Hydrochloride (Metformin Hcl) 1,000 Mg Tab, 1 TAB PO BID 12/07/24 Amlodipine Besylate (Amlodipine Besylate) 5 Mg Tab, 1 TAB PO DAILY 12/07/24 Sotalol Hcl (Sotalol Hcl) 80 Mg Tab, 80 MG PO DAILY 12/07/24 Plan/Recommendation 64 year-old male with the previous history of atrial fibrillation, presenting with rapid ventricular rate. He has been compliant with his medication's, including anticoagulation however it seems that his sotalol is prescribed as once a day, and he was recently taken off of metoprolol one week ago.He reports palpitations, but no chest pressure or shortness of breath. Denies syncope. He recently lost medical care due to insurance changes. This has caused a delay in him, seeking management for his atrial fibrillation. Discontinue amiodarone in the setting of sotalol toxicity, QTC prolongation. As patient has had a normal echo in the past year we will choose rate control with IV diltiazem/PO. We can determine the long acting dose upon discharge. Plan for a MARIKA cardioversion tomorrow with Dr. Bae. Referred patient to seek EP evaluation as outpatient for catheter ablation. Plan discussed with: Patient, Daughter Date of Service: Dec 07, 2024 Billing Provider: DENNIS ESPINO MD Cardiology Common Codes: [id number] INP/OBS CARE(Low), [id number] HOSP CARE(High ZECHARIAH MCCARTNEY Dec 07, 2024 11:07 DENNIS ESPINO MD Dec 08, 2024 15:10
[2024-12-07] MEDS: APIXABAN 5 MG TAB PO SCH (11:20)
[2024-12-07] MEDS: amLODIPine BESYLATE 5 MG TAB PO SCH (11:21)
[2024-12-07] MEDS: SOTALOL HCL 80 MG TAB PO SCH (11:21)
[2024-12-07] MEDS: CHLORTHALIDONE 25 MG TAB PO SCH (11:36)
[2024-12-07] MEDS: ACCU-CHEK COMFORT CURVE STRIP VI SCH (11:43)
[2024-12-07] MEDS: InsuLIN REG 1unit/0.01ml Soln (100units/ml) SC SCH ×2 (11:51→21:32)
[2024-12-07] MEDS: dilTIAZem HCL 60 MG TAB PO SCH (13:39)
[2024-12-07] MEDS: MAGNESIUM SULFATE 1GM/100ML 100 ML IV ONE (13:59)
[2024-12-07 16:47] VITALS: BP 114/71; PULSE 94; RESP 18; TEMP 98.6; O2SAT 98
[2024-12-07 16:59] VITALS: BP 125/76; PULSE 125; RESP 75; TEMP 98.1; O2SAT 98
[2024-12-07] MEDS ORDERED: METO25TA93 PO (17:18)
[2024-12-07] MEDS: ATORVASTATIN 20 MG TAB PO SCH (17:18)
[2024-12-07 20:30] VITALS: PULSE 103; PULSE 110; RESP 18
[2024-12-07 21:00] VITALS: BP 116/54; PULSE 81; RESP 17; TEMP 97.8; O2SAT 97
[2024-12-08 01:00] VITALS: BP_SYST 109; BP_SYST 130; BP_DIAS 52; BP_DIAS 83; PULSE 89; PULSE 98; RESP 17; RESP 18; TEMP 89; TEMP 97.6; TEMP 97.9; O2SAT 96; O2SAT 97
[2024-12-08 05:00] VITALS: BP 103/28; PULSE 55; RESP 17; TEMP 97.8; O2SAT 95
[2024-12-08 07:41] LABS: Alanine Aminotransferase 39 U/L (7-40); Albumin 4.5 g/dL (3.2-4.8); Alkaline Phosphatase 61 U/L (46-116); Anion Gap 10 (5-15); Aspartate Aminotransferase 24 U/L (13-40); Bilirubin, Total 0.8 mg/dL (0.2-1.0); Calcium 10.3 mg/dL (8.7-10.4); Carbon Dioxide 24 mmol/L (20-31); Chloride 106 mmol/L (98-107); Potassium 4.1 mmol/L (3.5-5.1); Sodium 140 mmol/L (136-145); Total Protein 7.3 g/dL (5.7-8.2)
[2024-12-08 07:43] LABS: Blood Urea Nitrogen 27 mg/dL (9-23); Glucose 144 mg/dL (74-106)
[2024-12-08 08:00] VITALS: PULSE 60; PULSE 62; RESP 18; O2SAT 98
[2024-12-08 08:20] LABS: Basophils # (auto) 0 10 ^3/uL (0-0.2); Basophils % (auto) 0.7 % (0.0-2.0); Eosinophils # (auto) 0.2 10 ^3/uL (0-0.8); Eosinophils % (auto) 2.5 % (0.0-7.0); Hemoglobin 13.8 g/dL (13.5-17.5); Lymphocytes # (auto) 1.9 10 ^3/uL (0.4-5.4); Lymphocytes % (auto) 29.7 % (10.0-50.0); Mean Corpuscular Hemoglobin 33.2 pg (28.0-32.0); Mean Corpuscular Hgb Conc. 35.3 g/dL (32.0-36.0); Mean Corpuscular Volume 94.1 fL (80.0-100.0); Monocytes # (auto) 0.7 10 ^3/uL (0-1.3); Monocytes % (auto) 11.4 % (0.0-12.0); Neutrophils # (auto) 3.6 10 ^3/uL (1.6-8.6); Neutrophils % (auto) 55.7 % (37.0-80.0); Nucleated Red Blood Cells % 0.1 %; Platelet Count (auto) 152 10^3/uL (140-450); Red Blood Cells 4.15 10^6/uL (4.5-5.90); Red Cell Distribution Width 14.1 % (11.8-14.3); White Blood Cell 6.5 10^3/uL (4.4-10.8)
[2024-12-08 09:00] VITALS: BP 128/62; PULSE 60; RESP 18; TEMP 98.3; O2SAT 98
[2024-12-08] MEDS: fentaNYL CITRATE 100 MCG/2 ML VL IV ONE (09:30)
[2024-12-08] MEDS: MIDAZOLAM HCL 2MG/2ML 2ml VIAL (1mg/ml) IV ONE (09:30)
[2024-12-08] MEDS: LIDOCAINE VISCOUS 2% 15ML UD PO ONE (09:30)
[2024-12-08] MEDS: LISINOPRIL 20 MG TAB PO SCH (12:28)
[2024-12-08 13:00] VITALS: BP 118/65; PULSE 74; RESP 18; TEMP 98; O2SAT 97
--- NOTE | 2024-12-08 13:10 | ECG ---
[facility] Test Date: 2024-12-08 Test Time: 09:57:01 Pat Name: YAN RIBEIRO Department: Room: 0276T B Gender: M Assistant Professor Of Economics: SERGIO : 1960 Requested By: RIMA GREENE Order Number: [id number] Reading MD: Measurements Intervals [place] Rate: 66 P: 57 SD: 152 QRS: 10 QRSD: 92 T: 50 QT: 438 QTc: 459 Interpretive Statements Normal sinus rhythm Please click the below link to view image of tracing.
--- NOTE | 2024-12-08 13:46 | DVHPN2 ---
Consult Progress Note Date Seen: Dec 08, 2024 Subjective Review of Systems: CVS:Normal, RESPIRATORY:Normal, NEURO:Normal Objective vital signs Vital Sign Date Time Temp Pulse Resp B/P (MAP) Pulse Ox O2 Delivery O2 Flow Rate FiO2 12/08/24 12:28 72 118/65 12/08/24 09:00 98.3 18 98 98.3 12/08/24 08:00 Room Air* 0 21 Total Intake and Output 12/07/24 12/07/24 12/08/24 15:00 23:00 07:00 Intake Total 1266.65 ml 0 ml 1200 ml Balance 1266.65 ml 0 ml 1200 ml medications Current Medications Medications Dose Ordered Sig/Karthikeyan Route Start Time Stop Time Status Last Admin Dose Admin Acetaminophen/ Hydrocodone Bitart 1 tab Q4HP PRN PO 12/07/24 07:00 Ondansetron HCl 4 mg Q4HP PRN IV 12/07/24 07:00 Docusate Sodium 100 mg BIDPRN PRN PO 12/07/24 07:00 Acetaminophen 650 mg Q6HP PRN PO 12/07/24 07:00 Nitroglycerin 0.4 mg Q5MINP PRN SL 12/07/24 07:00 Morphine Sulfate 2 mg Q30M PRN IV 12/07/24 07:00 Diagnostic Test (Pha) 1 strip ACHS 12/07/24 11:30 12/08/24 11:30 1 STRIP Insulin Human Regular HS SC 12/07/24 22:00 12/07/24 21:32 3 UNITS Insulin Human Regular AC SC 12/07/24 11:30 12/08/24 12:23 3 UNITS Dextrose 50 ml UD PRN IV 12/07/24 09:30 Apixaban 5 mg BID PO 12/07/24 10:00 12/08/24 12:29 5 MG Atorvastatin Calcium 20 mg HS PO 12/07/24 22:00 12/07/24 21:29 20 MG Lisinopril 40 mg DAILY PO 12/08/24 10:00 12/08/24 12:28 40 MG Diltiazem HCl 60 mg Q6HR PO 12/07/24 12:00 12/08/24 12:28 60 MG Examination: LUNGS:Normal, CVS:Normal (NSR), NEURO:Normal laboratory and microbiology Laboratory Tests 3/5/25 06:56 Test 12/08/24 06:56 Range/Units Serum Glucose 144 H 74-106 mg/dL Problem List/Assessment/Plan Problem List/Assessment/Plan Atrial fibrillation with rapid ventricular rate, uncontrolled Rule out structural heart disease Hypertension Dyslipidemia Nuf-dsyjccw-xhusqhits diabetes mellitus Suspected sleep apnea Alcohol use Obesity Plan/Recommendation (Dr. Bae) The patient who presented with a-fib with RVR has transitioned into a normal sinus rhythm with chemical cardioversion including Cardizem therapy. He was offered a transthoracic echocardiogram to rule out structural heart disease which he declines at this time and prefers to continue as outpatient. Recommendations are to transition to Cardizem LA, DOAC therapy with Eliquis BID ([id number] Score 3 points. HAS-BLED Score 1 point), and avoidance of Class Ia and Class III antiarrhythmics given prolonged QTc at 499 msc. Discontinue home Sotalol therapy. Home medications also include amlodipine and chlorthalidone but the patient presents with optimal BPs on Cardizem/lisinopril therapy alone. Advised for a BP log and further BP management per PCP. Consider sleep study as outpatient. Follow-up with a primary bdr within 2-3 weeks post-discharge. Kindly call if in need to re-consult. Thank you for allowing us to participate in this patient's care. This medical document was created using an electronic medical record system with voice recognition software and computerized dictation system. Although this document has been carefully reviewed, there might still be some phonetic and typographical errors. Occasional wrong-word or ``sound-alike substitutions may have occurred due to the inherent limitations of voice recognition software. These areas are purely typographical due to imperfections of the software programs and do not reflect any compromise in the patient's medical care. Please read the chart carefully and recognize, using context, where these substitutions have occurred. Plan discussed with: Patient, Daughter, Other Date of Service: Dec 08, 2024 Billing Provider: ZECHARIAH MCCARTNEY Cardiology Common Codes: 95981-[id number] HOSP CARE(High ZECHARIAH MCCARTNEY Dec 08, 2024 13:46
[2024-12-08] MEDS ORDERED: DILT120C54 PO (14:08)
--- NOTE | 2024-12-08 14:13 | DVHDS2 ---
Discharge Summary Date of Admission Dec 07, 2024 at 06:51 Date of Discharge: Dec 08, 2024 Admitting Diagnosis Atrial fibrillation with rapid ventricular rate Labs/Diagnostic Data: Laboratory Results Test 12/08/24 06:56 12/08/24 05:52 12/07/24 11:48 12/07/24 07:51 White Blood Count 6.5 10^3/uL (4.4-10.8) Red Blood Count 4.15 10^6/uL (4.5-5.90) Hemoglobin 13.8 g/dL (13.5-17.5) Hematocrit 39.0 % (41.0-53.0) Mean Corpuscular Volume 94.1 fL (80.0-100.0) Mean Corpuscular Hemoglobin 33.2 pg (28.0-32.0) Mean Corpuscular Hemoglobin Concent 35.3 g/dL (32.0-36.0) Red Cell Distribution Width 14.1 % (11.8-14.3) Platelet Count 152 10^3/uL (140-450) Mean Platelet Volume 8.7 fL (6.9-10.8) Neutrophils (%) (Auto) 55.7 % (37.0-80.0) Lymphocytes (%) (Auto) 29.7 % (10.0-50.0) Monocytes (%) (Auto) 11.4 % (0.0-12.0) Eosinophils (%) (Auto) 2.5 % (0.0-7.0) Basophils (%) (Auto) 0.7 % (0.0-2.0) Neutrophils # (Auto) 3.6 10 ^3/uL (1.6-8.6) Lymphocytes # (Auto) 1.9 10 ^3/uL (0.4-5.4) Monocytes # (Auto) 0.7 10 ^3/uL (0-1.3) Eosinophils # (Auto) 0.2 10 ^3/uL (0-0.8) Basophils # (Auto) 0 10 ^3/uL (0-0.2) Nucleated Red Blood Cells 0.1 % Sodium Level 140 mmol/L (136-145) Potassium Level 4.1 mmol/L (3.5-5.1) Chloride Level 106 mmol/L (98-107) Carbon Dioxide Level 24 mmol/L (20-31) Anion Gap 10 (5-15) Blood Urea Nitrogen 27 mg/dL (9-23) Creatinine 1.04 mg/dL (0.700-1.30) Glomerular Filtration Rate Calc 79 mL/min (>90) BUN/Creatinine Ratio 26.0 (10.0-20.0) Serum Glucose 144 mg/dL (74-106) Calcium Level 10.3 mg/dL (8.7-10.4) Total Bilirubin 0.8 mg/dL (0.2-1.0) Aspartate Amino Transferase (AST) 24 U/L (13-40) Alanine Aminotransferase (ALT) 39 U/L (7-40) Alkaline Phosphatase 61 U/L (46-116) Total Protein 7.3 g/dL (5.7-8.2) Albumin 4.5 g/dL (3.2-4.8) POC Glucose 150 mg/dl (70-106) Free Thyroxine (T4) Calculated 1.32 ng/dL (0.89-1.76) Troponin I High Sensitivity 11 ng/L (</=54) Test 12/07/24 04:46 12/07/24 04:44 Prothrombin Time 10.9 sec (9.3-11.8) Prothrombin Time INR 1.03 (0.9-1.15) Activated Partial Thromboplast Time 31.0 SEC (24.5-34.5) Hemoglobin A1c 6.8 % A1C (<5.7) Magnesium Level 1.6 mg/dL (1.6-2.6) B-Type Natriuretic Peptide 34.36 pg/mL (0-100) Thyroid Stimulating Hormone (TSH) 0.27 uIU/mL (0.55-4.78) Plasma/Serum Blood Alcohol 4.1 mg/dL (<10) Urine Color Straw (Yellow) Urine Clarity Clear (Clear) Urine pH 5.0 (5.0-9.0) Urine Specific Perry 1.006 (1.001-1.035) Urine Protein Negative (Negative) Urine Ketones Negative (Negative) Urine Blood Negative /uL (Negative) Urine Nitrite Negative (Negative) Urine Bilirubin Negative (Negative) Urine Urobilinogen Normal mg/dL (Negative) Urine Leukocyte Esterase Negative /uL (Negative) Urine RBC <1 /hpf (0 - 3) Urine Microscopic WBC < 1 /HPF (0-3) Urine Squamous Epithelial Cells None seen /hpf (<5) Urine Bacteria None seen /hpf (None Seen) Urine Glucose Normal mg/dL (Normal) Urine Opiates Screen Neg (NEGATIVE) Urine Fentanyl Screen Neg (NEGATIVE) Urine Barbiturates Screen Neg (NEGATIVE) Urine Phencyclidine Screen Neg (NEGATIVE) Urine Amphetamines Screen Neg (NEGATIVE) Urine Benzodiazepines Screen (NEGATIVE) Urine Cocaine Screen Neg (NEGATIVE) Urine Cannabinoids Screen Neg (NEGATIVE) Other Laboratory Tests 12/08/24 06:56 Brief Hx & Hospital Course: History of Present Illness Aristeo Romero is a 64-year-old male with past medical history of hypertension, hyperlipidemia, atrial fibrillation, and diabetes, who came to the hospital due to palpitations. Patient states he was awoken about 0300 due to the palpitations. Patient states that he has atrial fibrillation that was diagnosed about 9 months ago. He saw a a/c technician and completed a full work up that he states came back normal, but did not follow up sense then due to him retiring and insurance changing. He states he is compliant with his medications and does take his blood thinner. He had 5-6 beers yesterday, but typically only drinks occasionally, maybe once every couple of months. Course of hospitalization: Further discussion patient refused he was recently titrated sotalol and metoprolol tartrate. Patient has been converted back to sinus rhythm. According to patient, he has extensive workup recently past include echocardiogram and cardiac stress test. Patient was agreeable to be discharged home and his PCP for referral to contracted a/c technician. He will be continued rate/rhythm control with Cardizem, and continuation of Eliquis. discussion was made with the patient holding previous prescriptions of sotalol and tartrate. He will continue previous home medications. All questions answered. Physical examination General: Alert and Oriented x3. No acute distress. Well-nourished. Eyes: EOMI. Anicteric. HENT: Moist mucous membranes. Lungs: Clear to auscultation bilaterally. No accessory muscle use. Cardiovascular: Regular rate and rhythm. No murmur. No JVD. Abdomen: Soft, non-tender and non-distended. No palpable masses. Extremities: No edema. Non-tender. Skin: No rashes or lesions. Warm. Neurologic: No focal neurological deficits. CN II-XII grossly intact, but not individually tested. Psychiatric: Cooperative. Appropriate mood and affect. Total time spent with patient discussing and formulating plan of care: 35 minutes. This medical document was created using an electronic medical record system with [employer] dictation system. Although this document has been carefully reviewed, there may still be some phonetic and typographical errors. These areas are purely typographical due to imperfections of the software programs, and do not reflect any compromise in the patient's medical care. Consults/Reason for consult Cardiology AFib with RVR Condition at Discharge: Fair Final Diagnosis/Problems List Atrial fibrillation with rapid ventricular rate Secondary diagnosis: Hypertension, Dehydration, -diabetes mellitus -dyslipidemia -alcoholism Discharge Disposition: Home Discharge Instruct/Medications Diet: Cardiac 2g Na,low cholest Activity: No Restrictions, As Tolerated Follow Up/Referral: Follow up with PCP in 1-2 weeks and obtain referral to Cardiology Medications: Refer to medication reconciliation form 36 Discharge Statement: "Patient was advised to return to the ER or call 911 if any headaches, dizziness, shortness of breath, chest pain, abdominal pain, bleeding, fevers, or worsening of medical condition. Patient was counseled about treatment plan, medications, possible side effects, patientverbalized understanding. All questions were answered to the best of my ability. This discharge took greater then 30 minutes in planning, reviewing documentation, counseling the patient, and discussing with other team members." ASSESSMENT ASSESSMENT Assessment Atrial fibrillation with rapid ventricular rate Date of Service: Dec 08, 2024 Billing Provider: BELLO NAVA NP Common Visit Codes: 61150-GHA/OBS DISCH DAY >30min BELLO NAVA NP Dec 08, 2024 14:13
[2024-12-08 15:19] VITALS: BP 118/65; PULSE 72; RESP 18; TEMP 98.3; O2SAT 98
[2024-12-08] MEDS: dilTIAZem 120MG ER CAP PO ONE (15:52)
[2024-12-09] MEDS ORDERED: dilTIAZem 120MG ER CAP PO SCH (10:00)
== END 2024-12-08 16:00 | disposition home or self-care (01) | DRG 310 ==
LOC: ER 04:32 → OVERFLOW 06:51 → TELE-WESTW 16:45
PROVIDERS: ADMIT Student in an Organized Health Care Education/Training Program; ATTEND Student in an Organized Health Care Education/Training Program
DX: I48.91 Unspecified atrial fibrillation (principal); E86.0 Dehydration; I10 Essential (primary) hypertension; E11.9 Type 2 diabetes mellitus without complications; E66.9 Obesity, unspecified; F10.20 Alcohol dependence, uncomplicated; Y90.9 Presence of alcohol in blood, level not specified; E78.5 Hyperlipidemia, unspecified; Z79.84 Long term (current) use of oral hypoglycemic drugs; Z79.899 Other long term (current) drug therapy; Z68.30 Body mass index [BMI] 30.0-30.9, adult
CPT/HCPCS: 36415; 71045; 80048; 80053; 80307; 80320; 81001; 82962; 83036; 83735; 83880; 84439; 84443; 84484; 85025; 85610; 85730; 93005; 96365; 96375; 99291; G0378; J1815; J2405

== ENCOUNTER 2024-12-11 19:05 | Emergency (ER) | payer OTHER ==
[~2024-12-11] VITALS: Ht 185.4 cm; Wt 104.0 kg
[~2024-12-11 19:05] MED LIST: APIX5TAB PO; ATOR20TA PO; CHLO25TA2 PO; DILT120C54 PO; LISI40TA16 PO; METF-372 PO
--- NOTE | 2024-12-11 19:25 | ED.PDOC ---
History of Present Illness HPI Comments 64 year old male came to ER due to palpitations. Patient recently discharged 3 days ago and was diagnosed with Afib in RVR, hypertension and diabetes. Patient started on Cardizem and Eliquis and metoprolol and sotalol was discontinued. Stared taking Cardizem today as metoprolol was slowly tapered off. All day patient has been feeling dizzy, short of breath and tachycardic (>107bpm) which persisted prompting consult at this ER. Chief Complaint: Palpitations Time Seen by MD: 19:23 Primary Care Provider: OLMAN Reviewed Notes: Nurses Notes Allergies: Coded Allergies: NO KNOWN ALLERGIES (Unverified , 10/06/24) Home Meds Active Scripts Diltiazem HCl Coated Beads (Cardizem Cd) 120 Mg Cap, 120 MG PO DAILY for 30 Days, #30 CAP 2 Refills Prov:BELLO NAVA TIMBER MANAGEMENT SPECIALIST 12/08/24 Reported Medications Atorvastatin Calcium (Lipitor) 20 Mg Tab, 20 MG PO HS 12/07/24 Chlorthalidone (Chlorthalidone) 25 Mg Tab, 1 TAB PO DAILY 12/07/24 Apixaban Base (ELIQUIS) 5 Mg Tab, 1 TAB PO BID 12/07/24 Lisinopril (Lisinopril) 40 Mg Tab, 1 TAB PO DAILY 12/07/24 Metformin Hydrochloride (Metformin Hcl) 1,000 Mg Tab, 1 TAB PO BID 12/07/24 Discontinued Reported Medications Metoprolol Succinate (Metoprolol Succinate Er) 25 Mg Tab, 25 MG PO DAILY for 30 Days, MG 12/07/24 Amlodipine Besylate (Amlodipine Besylate) 5 Mg Tab, 1 TAB PO DAILY 12/07/24 Sotalol Hcl (Sotalol Hcl) 80 Mg Tab, 80 MG PO DAILY 12/07/24 Information Source: Patient Mode of Arrival: Ambulatory Severity: Moderate Timing: Hours Duration: Intermittent Prehospital treatment: Treatment Review of Systems REVIEW OF SYSTEMS: No fever, no chills, or fatigue HEENT: No sore throat, no earache, no congestion, no neck pain. Cardiac: No chest pain. (+) palpitations. Lungs: (+) shortness of breath, no cough. GI: No nausea, no vomiting, no diarrhea, no constipation, no abdominal pain : No dysuria, frequency, or urgency. No hematuria. Musculoskeletal: No joint pain , no joint swelling, no extremity edema. Skin: No rash, no itching. Neuro: No headache, (+) dizziness, no weakness Psych: Positive anxiety Vital Signs Vital Signs Date Time Temp Pulse Resp B/P (MAP) Pulse Ox O2 Delivery O2 Flow Rate FiO2 12/11/24 19:24 92 12/11/24 19:20 99.6 20 121/79 (93) 98 Physical Exam General: Awake, alert and oriented. No acute distress. Skin: Skin in warm, dry and intact. Appropriate color for ethnicity. Nailbeds pink with no cyanosis. HEENT: The head is normocephalic and atraumatic. Conjunctivae are clear without exudates or hemorrhage. Sclera is non-icteric. EOM are intact. No signs of nystagmus. Eyelids are normal in appearance without swelling or lesions. Oral mucosa is pink and moist Neck: The neck is supple with normal range of motion. No JVD. Cardiac: Heart rate and rhythm are normal. No murmurs, gallops, or rubs are auscultated. Respiratory: No signs of respiratory distress. Lung sounds are clear in all lobes bilaterally without rales, ronchi, or wheezes. Abdominal: Abdomen is soft, non-tender without distention. Bowel sounds are present and normoactive in all four quadrants. Extremities: Upper and lower extremities are atraumatic in appearance without deformity or edema. Neurological: The patient is awake, alert and oriented to person, place, and time with normal speech. Speech is clear. There is no facial asymmetry. Psychiatric: Appropriate mood and affect. Good judgement and insight. No visual or auditory hallucinations. Past Medical History PAST MEDICAL HISTORY: AFIB, DM, HTN Surgical History: Denies all surgeries Family History Family History: Reviewed,noncontributory to illness Social History Smoker: Non-Smoker Alcohol: Occasionally Drugs: Denies Drug Use Lives In: Home Was a procedure done? Was a procedure done?: No EKG EKG : Pulse Rate (adult): 92 Cardiac Rhythm: NSR Hypertrophy: VICKY Differential Dx Considerations may include: Anemia, electrolyte imbalance, AFib in RVR X-Ray, Labs, Meds, VS Vital Signs Date Time Temp Pulse Resp B/P (MAP) Pulse Ox O2 Delivery O2 Flow Rate FiO2 12/11/24 19:24 92 12/11/24 19:20 99.6 92 20 121/79 (93) 98 12/11/24 19:12 92 Lab Test 12/11/24 19:22 Range/Units White Blood Count 6.0 4.4-10.8 10^3/uL Red Blood Count 4.46 L 4.5-5.90 10^6/uL Hemoglobin 14.5 13.5-17.5 g/dL Hematocrit 42.2 41.0-53.0 % Mean Corpuscular Volume 94.7 80.0-100.0 fL Mean Corpuscular Hemoglobin 32.5 H 28.0-32.0 pg Mean Corpuscular Hemoglobin Concent 34.3 32.0-36.0 g/dL Red Cell Distribution Width 14.1 11.8-14.3 % Platelet Count 182 140-450 10^3/uL Mean Platelet Volume 8.7 6.9-10.8 fL Neutrophils (%) (Auto) 60.2 37.0-80.0 % Lymphocytes (%) (Auto) 26.9 10.0-50.0 % Monocytes (%) (Auto) 10.6 0.0-12.0 % Eosinophils (%) (Auto) 1.7 0.0-7.0 % Basophils (%) (Auto) 0.6 0.0-2.0 % Neutrophils # (Auto) 3.6 1.6-8.6 10 ^3/uL Lymphocytes # (Auto) 1.6 0.4-5.4 10 ^3/uL Monocytes # (Auto) 0.6 0-1.3 10 ^3/uL Eosinophils # (Auto) 0.1 0-0.8 10 ^3/uL Basophils # (Auto) 0 0-0.2 10 ^3/uL Nucleated Red Blood Cells 0.1 % Sodium Level 138 136-145 mmol/L Potassium Level 4.2 3.5-5.1 mmol/L Chloride Level 99 98-107 mmol/L Carbon Dioxide Level 26 20-31 mmol/L Anion Gap 13 5-15 Blood Urea Nitrogen 30 H 9-23 mg/dL Creatinine 1.20 0.700-1.30 mg/dL Glomerular Filtration Rate Calc 67 >90 mL/min BUN/Creatinine Ratio 25.0 H 10.0-20.0 Serum Glucose 149 H 74-106 mg/dL Calcium Level 11.3 H 8.7-10.4 mg/dL Total Bilirubin 0.6 0.2-1.0 mg/dL Aspartate Amino Transferase (AST) 44 H 13-40 U/L Alanine Aminotransferase (ALT) 65 H 7-40 U/L Alkaline Phosphatase 72 46-116 U/L Troponin I High Sensitivity 5 </=54 ng/L B-Type Natriuretic Peptide 46.42 0-100 pg/mL Total Protein 8.0 5.7-8.2 g/dL Albumin 5.1 H 3.2-4.8 g/dL CHEST RADIOGRAPH Indication: Dizziness Technique: Single frontal view of the chest was obtained Comparison: XY CHEST PORTABLE on DOS: 12/07/24, XY CHEST PORTABLE on DOS: 10/08/24 FINDINGS: Lines and Tubes: None Lungs: No focal consolidation. Pleura: No effusion. No pneumothorax. Cardiomediastinal contours: Unremarkable Bones: No acute osseous abnormality. IMPRESSION: 1. No acute cardiopulmonary disease. Time of 1ST Reevaluation: 19:19 Reevaluation 1ST: Unchanged Patient Education/Counseling: Diagnosis, Treatment Family Education/Counseling: No Family Present Departure 1 Departure Time of Disposition: 20:50 Impression: Primary Impression: Dizziness Additional Impression: Palpitation Disposition: 01 HOME / SELF CARE / HOMELESS Condition: Stable Additional Instructions: ED DISCHARGE INSTRUCTIONS Instructions: Please read all instructions provided in this packet carefully. Although you have been discharged from the Emergency Department, this does not mean that you have a "clean bill of health". No definitive diagnosis for your symptoms has been made today. It is possible that you are in the process of developing a serious illness. This is why you must return to the ED without fail if any new or worsening symptoms (especially if your symptoms include chest pain, trouble breathing, abdominal pain, fever, headache, confusion, trouble seeing, or trouble walking) It is also very important that you see a primary care doctor within the next 3-5 days to follow up. If you are unable to get an appointment, return to the ED for re-evaluation. PALPITATIONS EDUCATION Heart palpitations are the uncomfortable sensation that your heart is beating fast or irregularly. You might feel pounding or fluttering in your chest. It might feel like your heart is skipping a beat. Palpitations may be caused by a heart problem. But they also occur because of many other things. These include other health problems, stress, exercise, or use of alcohol, caffeine, or nicotine. Some prescription medicines and qucm-ala-ixbdomo medicines can also cause heart palpitations. Nearly everyone has palpitations from time to time. Depending on your symptoms, your doctor may need to do more tests to try to find the cause of your palpitations. Follow-up care is a vazquez part of your treatment and safety. Be sure to make and go to all appointments, and call your doctor if you are having problems. It's also a good idea to know your test results and keep a list of the medicines you take. How can you care for yourself at home? If they trigger palpitations, limit or avoid alcohol or caffeine. Do not smoke. If you need help quitting, talk to your doctor about stop-smoking programs and medicines. These can increase your chances of quitting for good. Ask your doctor whether you can take lsgw-wox-qpvhdnp medicines (such as decongestants). These may cause palpitations. If you think you may have a problem with drug use, talk to your doctor. Certain drugs, such as cocaine and methamphetamine, can affect your heart rate and rhythm. If you have palpitations again, take deep breaths and try to relax. Or try any physical things that your doctor recommended. These may include bearing down or coughing. If you start to feel lightheaded, sit or lie down to avoid injuries that might result if you pass out and fall down. If your doctor recommends it, keep a record of your palpitations and bring it to your next doctor's appointment. Write down: The date and time. Your pulse. (If your heart is beating fast, it may be hard to count your pulse.) If your heart rhythm was regular or irregular. What you were doing when the palpitations started. How long the palpitations lasted. Any other symptoms. What may have helped your symptoms go away. If an activity causes palpitations, slow down or stop. Talk to your doctor before you do that activity again. Take your medicines exactly as prescribed. Call your doctor if you think you are having a problem with your medicine. When should you call for help? Call 911 anytime you think you may need emergency care. For example, call if: You passed out (lost consciousness). You have symptoms of a heart attack. These may include: Chest pain or pressure, or a strange feeling in the chest. Sweating. Shortness of breath. Pain, pressure, or a strange feeling in the back, neck, jaw, or upper belly or in one or both shoulders or arms. Lightheadedness or sudden weakness. A fast or irregular heartbeat. After you call 911, the licensed reactor operator may tell you to chew 1 adult-strength or 2 to 4 low-dose aspirin. Wait for an ambulance. Do not try to drive yourself. You have symptoms of a stroke. These may include: Sudden numbness, tingling, weakness, or loss of movement in your face, arm, or leg, especially on only one side of your body. Sudden vision changes. Sudden trouble speaking. Sudden confusion or trouble understanding simple statements. Sudden problems with walking or balance. A sudden, severe headache that is different from past headaches. Call your doctor now or seek immediate medical care if: You have heart palpitations and: Are dizzy or lightheaded, or you feel like you may faint. Have new or increased shortness of breath. Watch closely for changes in your health, and be sure to contact your doctor if: You continue to have heart palpitations. Current as of: May 05, 2024 Author: Harir Staff? Comments 64-year-old male who presents to the emergency department with dizziness and reporting anxiety. Labs, imaging reviewed. Mild dehydration noted. IV fluids administered. EKG shows sinus rhythm. No AFib at this time. Patient felt stable for discharge home. Patient well-appearing, nontoxic. Advised prompt follow-up with PCP, return to the ED with any new, worsening or concerning symptoms. Extensive evaluation was performed in attempt to identify or rule out: (See differential diagnosis section) The following tests were ordered, and results were reviewed by me: (See diagnostic results section) The following test were independently interpreted by me: EKG, chest x-ray I reviewed and agreed with the following test results read by other providers: Chest x-ray I reviewed the following notes from the pt's past medical encounters: Encounter 12/07/24 for Atrial fib with RVR Additional information was gathered from interviewing the following independent historians: N/A Discussion of management or test interpretation with external physician/other qualified health care aid: N/A Decision regarding hospitalization or escalation of hospital level of care: Risks and benefits of admission for further treatment of patient's condition was considered however due to patient's stable condition patient will be discharged to follow up closely or return to care for worsening of condition or inability to follow up. Critical Care Note Critical Care Time?: No Stability Stability form required: No Heart Score Heart Score: Heart Score Response (Comments) Value History Moderate Suspicious 1 EKG Repolarization Disturb 1 Age >65 2 Risk Factors >3 or Hx ASHD 2 Troponin Normal limit 0 Total 6 I personally scribed for CHER LOJA MD ([email or web address]) on 12/11/24 at 19:24. Electronically submitted by Kirk Strong ([employer]). I personally scribed for CHER LOJA MD ([email or web address]) on 12/11/24 at 19:25. Electronically submitted by Kirk Strong ([employer]). I personally scribed for CHER LOJA MD ([email or web address]) on 12/11/24 at 20:49. Electronically submitted by Kirk Strong ([employer]). CHER LOJA MD Dec 11, 2024 19:24
[2024-12-11] MEDS: SODIUM CHLORIDE 0.9% 1,000 ML IV ONE (19:30)
[2024-12-11] MEDS: LORazepam 2MG/ML-1ML VIAL IV ONE (19:30)
[2024-12-11 19:42] LABS: Basophils # (auto) 0 10 ^3/uL (0-0.2); Basophils % (auto) 0.6 % (0.0-2.0); Eosinophils # (auto) 0.1 10 ^3/uL (0-0.8); Eosinophils % (auto) 1.7 % (0.0-7.0); Hematocrit 42.2 % (41.0-53.0); Hemoglobin 14.5 g/dL (13.5-17.5); Lymphocytes # (auto) 1.6 10 ^3/uL (0.4-5.4); Lymphocytes % (auto) 26.9 % (10.0-50.0); Mean Corpuscular Hemoglobin 32.5 pg (28.0-32.0); Mean Corpuscular Hgb Conc. 34.3 g/dL (32.0-36.0); Mean Corpuscular Volume 94.7 fL (80.0-100.0); Monocytes # (auto) 0.6 10 ^3/uL (0-1.3); Monocytes % (auto) 10.6 % (0.0-12.0); Neutrophils # (auto) 3.6 10 ^3/uL (1.6-8.6); Neutrophils % (auto) 60.2 % (37.0-80.0); Nucleated Red Blood Cells % 0.1 %; Platelet Count (auto) 182 10^3/uL (140-450); Red Blood Cells 4.46 10^6/uL (4.5-5.90); Red Cell Distribution Width 14.1 % (11.8-14.3)
[2024-12-11 19:58] LABS: Alkaline Phosphatase 72 U/L (46-116); Anion Gap 13 (5-15); Carbon Dioxide 26 mmol/L (20-31); Chloride 99 mmol/L (98-107); Potassium 4.2 mmol/L (3.5-5.1); Sodium 138 mmol/L (136-145)
[2024-12-11 19:59] LABS: Bilirubin, Total 0.6 mg/dL (0.2-1.0)
[2024-12-11 20:05] LABS: Alanine Aminotransferase 65 U/L (7-40); Albumin 5.1 g/dL (3.2-4.8); Aspartate Aminotransferase 44 U/L (13-40); Blood Urea Nitrogen 30 mg/dL (9-23); Calcium 11.3 mg/dL (8.7-10.4); Glucose 149 mg/dL (74-106)
--- NOTE | 2024-12-11 20:13 | DVH ---
CHEST RADIOGRAPH Indication: Dizziness Technique: Single frontal view of the chest was obtained Comparison: XY CHEST PORTABLE on DOS: 12/07/24, XY CHEST PORTABLE on DOS: 10/08/24 FINDINGS: Lines and Tubes: None Lungs: No focal consolidation. Pleura: No effusion. No pneumothorax. Cardiomediastinal contours: Unremarkable Bones: No acute osseous abnormality. IMPRESSION: 1. No acute cardiopulmonary disease.
[2024-12-11 22:34] VITALS: BP 147/68; PULSE 66; RESP 18; TEMP 97.7; O2SAT 98
--- NOTE | 2024-12-12 04:37 | ECG ---
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
== END 2024-12-11 23:40 | disposition home or self-care (01) ==
LOC: ER 19:05
DX: R00.2 Palpitations (principal); R42 Dizziness and giddiness; I10 Essential (primary) hypertension; E11.9 Type 2 diabetes mellitus without complications; I48.91 Unspecified atrial fibrillation; Z79.01 Long term (current) use of anticoagulants; Z79.84 Long term (current) use of oral hypoglycemic drugs; Z79.899 Other long term (current) drug therapy
CPT/HCPCS: 36415; 71045; 80053; 83880; 84484; 85025; 93005; 96360; 99285; J7030

== ENCOUNTER 2025-03-19 13:23 | Inpatient (IN) | payer OTHER ==
[~2025-03-19] VITALS: Ht 188 cm; Wt 99.0 kg
--- NOTE | 2025-03-19 13:36 | ED.PDOC ---
GI ASSESSMENT HPI Comments 64y M who presents to the ED for chief complaint of abdominal pain. Pt states the pain is located by the epigastric region for the past [address] lying down attempting to take a nap. Pt states the pain is constant, non- radiating, with no associated exacerbating or relieving factors. Pt has associated nausea and constipation but otherwise denies any other symptoms. Pt states he has had this pain in the past and told it was due to his gallstones which was dx 4 months ago but no surgery was required. Pt otherwise denies any other symptoms at this time. 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 12/08/24 Reported Medications Atorvastatin Calcium (Lipitor) 20 Mg Tab, 20 MG PO HS 12/07/24 Chlorthalidone (Chlorthalidone) 25 Mg Tab, 1 TAB PO DAILY 12/07/24 Apixaban Base (ELIQUIS) 5 Mg Tab, 1 TAB PO BID 12/07/24 Lisinopril (Lisinopril) 40 Mg Tab, 1 TAB PO DAILY 12/07/24 Metformin Hydrochloride (Metformin Hcl) 1,000 Mg Tab, 1 TAB PO BID 12/07/24 Information Source: Patient Mode of Arrival: Ambulatory Past Medical History PAST MEDICAL HISTORY: AFIB, DM, HTN Surgical History: Denies all surgeries Family History Family History: Reviewed,noncontributory to illness Social History Smoker: Non-Smoker Alcohol: Occasionally Drugs: Denies Drug Use Lives In: Home Constitutional: denies: chills, diaphoresis, fatigue, fever, malaise, sweats, weakness, others EENTM: denies: blurred vision, double vision, ear bleeding, ear discharge, ear drainage, ear pain, ear ringing, eye pain, eye redness, hearing loss, mouth pain, mouth swelling, nasal discharge, nose bleeding, nose congestion, nose pain , photophobia, tearing, throat pain, throat swelling, voice changes, others Respiratory: denies: cough, hemoptysis, orthopnea, SOB at rest, shortness of breath, SOB with excertion, stridor, wheezing, others Cardiovascular: denies: chest pain, dizzy spells, diaphoresis, Dyspnea on exertion, edema, irregular heart beat, left arm pain, lightheadedness, palpitations, PND, syncope, others Gastrointestinal: reports: abdominal pain, constipated, nausea; denies: abdomen distended, blood streaked bowels, diarrhea, dysphagia, difficulty swallowing, hematemesis, melena, poor appetite, poor fluid intake, rectal bleeding, rectal pain, vomiting, others Genitourinary: denies: burning, dysuria, flank pain, frequency, hematuria, incontinence, penile discharge, penile sore, pain, testicle pain, testicle swelling, urgency, others Neurological: denies: dizziness, fainting, headache, left sided numbness, left sided weakness, numbness, paresthesia, pre-existing deficit, right sided numb ness, right sided weakness, seizure, speech problems, tingling, tremors, weakness, others Musculoskeletal: denies: back pain, gout, joint pain, joint swelling, muscle pain, muscle stiffness, neck pain, others Integumetry: denies: bruises, change in color, change in hair/nails, dryness, laceration, lesions, lumps, rash, wounds, others Allergic/Immunocompromised: denies: Difficulty Healing, Frequent Infections, Hives, Itching, others Hematologic/Lymphatic: denies: anemia, blood clots, easy bleeding, easy bruising, swollen glands, others Endocrine: denies: excessive hunger, excessive sweating, excessive thirst, excessive urination, flushing, intolerance to cold, intolerance to heat, unexplained weight gain, unexplained weight loss, others Psychiatric: denies: anxiety, bipolar disorder, depression, hopeless, panic disorder, schizophrenia, sleepless, suicidal, others All Other Systems: Reviewed and Negative Physical Exam General Appearance: No Apparent Distress, Normal HEENT: Normal ENT Inspection, Pharynx Normal, TMs Normal Neck: Full Range of Motion, Non-Tender, Normal, Normal Inspection Respiratory: Chest Non-Tender, Lungs Clear, No Accessory Muscle Use, No Respiratory Distress, Normal Breath Sounds Cardiovascular: No Edema, No JVD, No Murmur, No Gallop, Normal Peripheral Pulses, Regular Rate/Rhythm Breast Exam: Deferred Gastrointestinal: RUQ (tenderness) Genitalia: Deferred Pelvic: Deferred Rectal: Deferred Extremities: No calf tenderness, Normal capillary refill, Normal inspection, Normal range of motion, Non-tender, No pedal edema Musculoskeletal : Apperance: Normal Neurologic: Alert, flooring grader 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 Was a procedure done?: No GI differential Dx Differential Diagnosis: Appendicitis, Cholangitis, Cholecystitis, Constipation, Esophagitis, Gastritis/PUD, Gastroenteritis, Pancreatitis, Electrolyte Imbalance, Food Poisoning, Bacterial, Stress Ulcer, Other (choledocholithiasis, cholangitis) X-Ray, Labs, Meds, VS Vital Signs Date Time Temp Pulse Resp B/P (MAP) Pulse Ox O2 Delivery O2 Flow Rate FiO2 03/19/25 13:30 99.5 77 18 139/73 (95) 97 99.5 Lab Test 03/19/25 13:37 03/19/25 13:35 Range/Units White Blood Count 8.3 4.4-10.8 10^3/uL Red Blood Count 4.93 4.5-5.90 10^6/uL Hemoglobin 16.2 13.5-17.5 g/dL Hematocrit 46.4 41.0-53.0 % Mean Corpuscular Volume 94.1 80.0-100.0 fL Mean Corpuscular Hemoglobin 32.8 H 28.0-32.0 pg Mean Corpuscular Hemoglobin Concent 34.8 32.0-36.0 g/dL Red Cell Distribution Width 13.2 11.8-14.3 % Platelet Count 150 140-450 10^3/uL Mean Platelet Volume 7.9 6.9-10.8 fL Neutrophils (%) (Auto) 77.8 37.0-80.0 % Lymphocytes (%) (Auto) 11.3 10.0-50.0 % Monocytes (%) (Auto) 9.0 0.0-12.0 % Eosinophils (%) (Auto) 1.6 0.0-7.0 % Basophils (%) (Auto) 0.3 0.0-2.0 % Neutrophils # (Auto) 6.5 1.6-8.6 10 ^3/uL Lymphocytes # (Auto) 0.9 0.4-5.4 10 ^3/uL Monocytes # (Auto) 0.7 0-1.3 10 ^3/uL Eosinophils # (Auto) 0.1 0-0.8 10 ^3/uL Basophils # (Auto) 0 0-0.2 10 ^3/uL Nucleated Red Blood Cells 0.1 % Sodium Level 142 136-145 mmol/L Potassium Level 4.4 3.5-5.1 mmol/L Chloride Level 105 98-107 mmol/L Carbon Dioxide Level 26 20-31 mmol/L Anion Gap 11 5-15 Blood Urea Nitrogen 14 9-23 mg/dL Creatinine 0.94 0.700-1.30 mg/dL Glomerular Filtration Rate Calc 89 >90 mL/min BUN/Creatinine Ratio 14.9 10.0-20.0 Serum Glucose 132 H 74-106 mg/dL Calcium Level 9.8 8.7-10.4 mg/dL Total Bilirubin 1.4 H 0.2-1.0 mg/dL Aspartate Amino Transferase (AST) 95 H <34 U/L Alanine Aminotransferase (ALT) 63 H 7-40 U/L Alkaline Phosphatase 65 46-116 U/L Total Protein 7.3 5.7-8.2 g/dL Albumin 4.5 3.2-4.8 g/dL Lipase 33 12-53 U/L Urine Color Yellow Yellow Urine Clarity Clear Clear Urine pH 5.0 5.0-9.0 Urine Specific [place] 1.030 1.001-1.035 Urine Protein Negative Negative Urine Ketones 1+ H Negative Urine Blood Negative Negative /uL Urine Nitrite Negative Negative Urine Bilirubin Negative Negative Urine Urobilinogen Normal Negative mg/dL Urine Leukocyte Esterase Negative Negative /uL Urine RBC 1 0 - 3 /hpf Urine Microscopic WBC 1 0-3 /HPF Urine Squamous Epithelial Cells Few <5 /hpf Urine Bacteria None seen None Seen /hpf Urine Mucus Few None Seen Urine Glucose Normal Normal mg/dL [address] [address] Ph: [phone] DIAGNOSTIC IMAGING Diagnostic Imaging Report : [id number] Signed PATIENT: YAN RIBEIRO ACCT: [id number] UNIT: [id number] : 1960 LOC: ER ROOM / BED: / AGE / SEX: 64 / M ADM STATUS: REG ER SERVICE 1331 ORDERING PHYSICIAN: SANTIAGO TRENT MD PROCEDURE(s): GBUS - GALLBLADDER REASON: ruq pain ORDER NUMBER(s): [id number], ACCESSION NUMBER(s): [id number] INDICATION: ruq pain TECHNIQUE: Multiple real-time sonographic images of the abdomen were obtained. COMPARISON: None FINDINGS: Liver is homogenous in echogenicity. The liver measures 15.3 cm. No intrahepatic biliary ductal dilatation is noted. The gallbladder wall measures 0.2 cm and is unremarkable. Gallstones are noted. No pericholecystic fluid or edema. Sonographic chase's sign is negative. The common duct measures 1.0 cm and is dilated. The right kidney measures 10.5 cm. No hydronephrosis. The pancreas is not well visualized due to obscuration from bowel gas. The visualized portions of the IVC and aorta are grossly unremarkable. IMPRESSION: Cholelithiasis without evidence of acute cholecystitis. Dilated common bile duct, raising concern for choledocholithiasis. ATED BY: JONO OTT MD DICTATED DATE/TIME: 03/19/251426 SIGNED BY: JONO OTT MD SIGNED DATE/TIME: 03/19/251426 CC: Time of 1ST Reevaluation: 15:15 Reevaluation 1ST: Improved Patient Education/Counseling: Diagnosis, Treatment, Prognosis, Need For Follow Up Family Education/Counseling: No Family Present Comments pt has known GS, however his CBD is dilated. due to concerns for choledocholithiasis, pt will need an MRCP to clarify. Departure 1 Departure Time of Disposition: 15:13 Impression: Primary Impression: Biliary colic Additional Impression: Cholelithiases Disposition: ADMITTED INPATIENT Admit to: Med Surg Condition: Serious Discharged With: Self Critical Care Note Critical Care Time?: Yes (55 min-critical care time only) Critical care comment: Due to concerns for patients condition deteriorating, the care required my highest level of attention and readiness to intervene. I assessed the patient, reviewed the medical records, ordered the appropriate tests and treatments, then reassessed for results and responsiveness. I communicated with medical personnel and consultants and formulated a plan of care. Total critical care time excludes any procedures Stability Stability form required: No Heart Score Heart Score: Heart Score Response (Comments) Value History N/A 0 EKG N/A 0 Age N/A 0 Risk Factors N/A 0 Troponin N/A 0 Total 0 I personally scribed for SANTIAGO TRENT MD ([facility]) on 03/19/25 at 13:36. Electronically submitted by Tricia White ([facility] [place] I personally scribed for SANTIAGO TRENT MD ([facility]) on 03/19/25 at 14:39. Electronically submitted by Tricia White ([facility] [place] SANTIAGO TRENT MD Mar 19, 2025 13:36
[2025-03-19 13:44] LABS: Basophils # (auto) 0 10 ^3/uL (0-0.2); Basophils % (auto) 0.3 % (0.0-2.0); Eosinophils # (auto) 0.1 10 ^3/uL (0-0.8); Eosinophils % (auto) 1.6 % (0.0-7.0); Hematocrit 46.4 % (41.0-53.0); Hemoglobin 16.2 g/dL (13.5-17.5); Lymphocytes # (auto) 0.9 10 ^3/uL (0.4-5.4); Lymphocytes % (auto) 11.3 % (10.0-50.0); Mean Corpuscular Hemoglobin 32.8 pg (28.0-32.0); Mean Corpuscular Hgb Conc. 34.8 g/dL (32.0-36.0); Mean Corpuscular Volume 94.1 fL (80.0-100.0); Monocytes # (auto) 0.7 10 ^3/uL (0-1.3); Neutrophils # (auto) 6.5 10 ^3/uL (1.6-8.6); Neutrophils % (auto) 77.8 % (37.0-80.0); Nucleated Red Blood Cells % 0.1 %; Platelet Count (auto) 150 10^3/uL (140-450); Red Blood Cells 4.93 10^6/uL (4.5-5.90); Red Cell Distribution Width 13.2 % (11.8-14.3); White Blood Cell 8.3 10^3/uL (4.4-10.8)
[2025-03-19 14:02] LABS: Urine Bacteria None Seen /hpf (None Seen)
[2025-03-19 14:07] LABS: Albumin 4.5 g/dL (3.2-4.8); Alkaline Phosphatase 65 U/L (46-116); Anion Gap 11 (5-15); BUN/Creatinine Ratio 14.9 (10.0-20.0); Blood Urea Nitrogen 14 mg/dL (9-23); Calcium 9.8 mg/dL (8.7-10.4); Carbon Dioxide 26 mmol/L (20-31); Chloride 105 mmol/L (98-107); Lipase 33 U/L (12-53); Potassium 4.4 mmol/L (3.5-5.1); Sodium 142 mmol/L (136-145); Total Protein 7.3 g/dL (5.7-8.2)
[2025-03-19 14:12] LABS: Urine Blood Negative /uL (Negative); Urine Clarity Clear (Clear); Urine Color Yellow (Yellow); Urine Mucus FEW (None Seen); Urine Protein, UAD Negative (Negative); Urine Squamous Epithelial Cell FEW /hpf (<5); Urine Urobilinogen Normal (Negative); Urine WBC 1 /HPF (0-3)
[2025-03-19 14:13] LABS: Alanine Aminotransferase 63 U/L (7-40); Aspartate Aminotransferase 95 U/L (<34); Bilirubin, Total 1.4 mg/dL (0.2-1.0); Glucose 132 mg/dL (74-106)
--- NOTE | 2025-03-19 14:29 | DVH ---
INDICATION: ruq pain TECHNIQUE: Multiple real-time sonographic images of the abdomen were obtained. COMPARISON: None FINDINGS: Liver is homogenous in echogenicity. The liver measures 15.3 cm. No intrahepatic biliary ductal dilatation is noted. The gallbladder wall measures 0.2 cm and is unremarkable. Gallstones are noted. No pericholecysti c fluid or edema. Sonographic chase's sign is negative. The common duct measures 1.0 cm and is dilated. The right kidney measures 10.5 cm. No hydronephrosis. The pancreas is not well visualized due to obscuration from bowel gas. The visualized portions of the IVC and aorta are grossly unremarkable. IMPRESSION: Cholelithiasis without evidence of acute cholecystitis. Dilated common bile duct, raising concern fo r choledocholithiasis.
[2025-03-19] MEDS ORDERED: metroNIDAZOLE 500MG/100ML 100 ML IV ONE (15:15)
[2025-03-19] MEDS: PIPERACILLIN-TAZO 4.5GM 100 ML IV ONE (16:11)
[2025-03-19 16:17] VITALS: PULSE 53; RESP 18; O2SAT 99
[2025-03-19] MEDS ORDERED: DEXTROSE (50%) 50ML SYRG IV PRN (16:30)
[2025-03-19] MEDS ORDERED: ONDANSETRON HCL 4 MG/2 ML VIAL IV PRN (16:30)
[2025-03-19] MEDS ORDERED: MORPHINE SULFATE INJ 2 MG/ml SYRG IV PRN (16:30)
[2025-03-19] MEDS ORDERED: ACETAMINOPHEN 325 MG TAB PO PRN (16:30)
[2025-03-19] MEDS ORDERED: HYDROcodone-ACET 5/325MG TAB PO PRN (16:30)
--- NOTE | 2025-03-19 16:55 | DVHHP2 ---
History of Present Illness Reason for Visit: Abdominal pain History of Present Illness Aristeo Romero is a 64-year-old male with past medical history of hypertension, hyperlipidemia, diabetes type 2, and AFib who presents to the ED with abdominal pain that happened over the last 4 hours. Patient reports that he got an ultrasound 8-9 weeks ago with his primary and was supposed to go back for a follow up however the primary did not schedule a time for him to come back. They did tell him per patient that there was something on his imaging and for the ultrasound to be repeated but he never heard back. Patient states that the pain is 1/10 dull it intermittent. Patient states that the pain started in his right upper quadrant however now it is across his right upper quadrant to his left upper quadrant. He also states that sitting or standing makes the pain worse but there are no relieving factors. Patient also reports that he fell on his right-sided rib 3 months ago. Patient denies any chest pain, shortness of breath, fever, chills, lightheadedness, weakness, dizziness, recent ingestion of spoiled food, recent travels, recent sick contacts, nausea, vomiting, or diarrhea. Cardiovascular: AFIB, HTN, hyperipidemia Endocrine: Diabetes Past Surgical History: None Family History: Other (Both parents ) Smoke: No ALCOHOL: none Drugs: None Lives: Alone Domestic Violence: Neg Review of Systems Gastrointestinal: Abdominal Pain Allergies: Coded Allergies: NO KNOWN ALLERGIES (Unverified , 10/06/24) Exam Vital Signs Vital Signs Date Time Temp Pulse Resp B/P (MAP) Pulse Ox O2 Delivery O2 Flow Rate FiO2 03/19/25 16:17 53 18 99 Room Air* 0 21 03/19/25 15:13 97.8 152/75 (100) 97.8 General Appearance: Alert, Oriented X3, Cooperative, No acute distress HEENT: Atraumatic, PERRLA, EOMI, Mucous membr. moist/pink Respiratory: Clear to auscultation, Normal air movement Cardiovascular: Normal S1, Normal S2, No murmurs Abdominal: Normal bowel sounds, Soft Extremities: No clubbing, No cyanosis, No edema, Normal pulses Skin: No significant lesion Neuro: Normal gait, Normal speech, Strength at 5/5 X4 ext, Normal tone, Se nsation intact Psych/Mental Status: Mental status NL, Mood NL Labs/Xrays Labs Test 03/19/25 13:37 03/19/25 13:35 Range/Units White Blood Count 8.3 4.4-10.8 10^3/uL Red Blood Count 4.93 4.5-5.90 10^6/uL Hemoglobin 16.2 13.5-17.5 g/dL Hematocrit 46.4 41.0-53.0 % Mean Corpuscular Volume 94.1 80.0-100.0 fL Mean Corpuscular Hemoglobin 32.8 H 28.0-32.0 pg Mean Corpuscular Hemoglobin Concent 34.8 32.0-36.0 g/dL Red Cell Distribution Width 13.2 11.8-14.3 % Platelet Count 150 140-450 10^3/uL Mean Platelet Volume 7.9 6.9-10.8 fL Neutrophils (%) (Auto) 77.8 37.0-80.0 % Lymphocytes (%) (Auto) 11.3 10.0-50.0 % Monocytes (%) (Auto) 9.0 0.0-12.0 % Eosinophils (%) (Auto) 1.6 0.0-7.0 % Basophils (%) (Auto) 0.3 0.0-2.0 % Neutrophils # (Auto) 6.5 1.6-8.6 10 ^3/uL Lymphocytes # (Auto) 0.9 0.4-5.4 10 ^3/uL Monocytes # (Auto) 0.7 0-1.3 10 ^3/uL Eosinophils # (Auto) 0.1 0-0.8 10 ^3/uL Basophils # (Auto) 0 0-0.2 10 ^3/uL Nucleated Red Blood Cells 0.1 % Sodium Level 142 136-145 mmol/L Potassium Level 4.4 3.5-5.1 mmol/L Chloride Level 105 98-107 mmol/L Carbon Dioxide Level 26 20-31 mmol/L Anion Gap 11 5-15 Blood Urea Nitrogen 14 9-23 mg/dL Creatinine 0.94 0.700-1.30 mg/dL Glomerular Filtration Rate Calc 89 >90 mL/min BUN/Creatinine Ratio 14.9 10.0-20.0 Serum Glucose 132 H 74-106 mg/dL Calcium Level 9.8 8.7-10.4 mg/dL Total Bilirubin 1.4 H 0.2-1.0 mg/dL Aspartate Amino Transferase (AST) 95 H <34 U/L Alanine Aminotransferase (ALT) 63 H 7-40 U/L Alkaline Phosphatase 65 46-116 U/L Total Protein 7.3 5.7-8.2 g/dL Albumin 4.5 3.2-4.8 g/dL Lipase 33 12-53 U/L Urine Color Yellow Yellow Urine Clarity Clear Clear Urine pH 5.0 5.0-9.0 Urine Specific [place] 1.030 1.001-1.035 Urine Protein Negative Negative Urine Ketones 1+ H Negative Urine Blood Negative Negative /uL Urine Nitrite Negative Negative Urine Bilirubin Negative Negative Urine Urobilinogen Normal Negative mg/dL Urine Leukocyte Esterase Negative Negative /uL Urine RBC 1 0 - 3 /hpf Urine Microscopic WBC 1 0-3 /HPF Urine Squamous Epithelial Cells Few <5 /hpf Urine Bacteria None seen None Seen /hpf Urine Mucus Few None Seen Urine Glucose Normal Normal mg/dL INDICATION: ruq pain TECHNIQUE: Multiple real-time sonographic images of the abdomen were obtained. COMPARISON: None FINDINGS: Liver is homogenous in echogenicity. The liver measures 15.3 cm. No intrahepatic biliary ductal dilatation is noted. The gallbladder wall measures 0.2 cm and is unremarkable. Gallstones are noted. No pericholecystic fluid or edema. Sonographic chase's sign is negative. The common duct measures 1.0 cm and is dilated. The right kidney measures 10.5 cm. No hydronephrosis. The pancreas is not well visualized due to obscuration from bowel gas. The visualized portions of the IVC and aorta are grossly unremarkable. IMPRESSION: Cholelithiasis without evidence of acute cholecystitis. Dilated common bile duct, raising concern for choledocholithiasis. Assessment/Plan Assessment/Plan Assessment Intractable abdominal pain likely due to choledocholithiasis Hyperbilirubinemia Transaminitis History of hypertension History of hyperlipidemia History of diabetes type 2 History of AFib History of fall 3 months ago Plan Admit to med surge Antiemetics Pain management Flagyl and Zosyn given in ED UA noted Ultrasound gallbladder noted Lipase Hemoglobin A1c ISS and Accu-Cheks Chest x-ray ordered MRCP ordered Diet Home medications reconciled DVT prophylaxis-patient on Eliquis, patient also ambulating PUD prophylaxis-not indicated no history of GERD or GI bleed Discussed plan of care with patient and nurse Plan discussed with: Patient My Orders Orders - JENNIE PINTO Procedure Category Date Status Time Mrcp Mri MRI 03/19/25 Logged 16:17 Glucose Blood PHA 03/19/25 Verified (Accu-Chek Comfort 17:00 Mild Sliding Scale PHA 03/19/25 Verified 17:00 Dextrose 50% Syringe PHA 03/19/25 Verified 16:30 Hemoglobin A1c LAB 03/19/25 Verified 16:19 Chest Xray 1 View XY 03/19/25 Verified 16:19 Admit ADMIT 03/19/25 Verified 16:19 Allergies GREG 03/19/25 Verified 16:19 Code Status CODE 03/19/25 Verified 16:19 Hydrocodone-Acet PHA 03/19/25 Verified 5/325mg Tab ([place] 16:30 Ondansetron Hcl PHA 03/19/25 Verified (Zofran) 16:30 Complete Blood Count LAB 03/20/25 Verified 04:00 Comprehensive LAB 03/20/25 Verified Metabolic Panel 04:00 Date of Service: Mar 19, 2025 Billing Provider: JENNIE PINTO Common Visit Codes: [id number] INP/OBS CARE (HIGH) JENNIE PINTO Mar 19, 2025 16:55
[2025-03-19] MEDS: InsuLIN REG 1unit/0.01ml Soln (100units/ml) SC SCH (17:00)
[2025-03-19] MEDS: ACCU-CHEK COMFORT CURVE STRIP VI SCH (17:10)
[2025-03-19 17:11] LABS: Alkaline Phosphatase 63 U/L (46-116)
[2025-03-19 17:15] LABS: Alanine Aminotransferase 67 U/L (7-40); Aspartate Aminotransferase 93 U/L (<34)
--- NOTE | 2025-03-19 17:22 | DVH ---
CHEST RADIOGRAPH Indication: s/p fall on rib Technique: Single frontal view of the chest was obtained Comparison: XY CHEST XRAY 1 VIEW on DOS: 12/11/24, XY CHEST PORTABLE on DOS: 12/07/24, XY CHEST PORTABLE on DOS: 10/08/24 FINDINGS: Lines and Tubes: None Lungs: No focal consolidation. Pleura: No effusion. No pneumothorax. Cardiomediastinal contours: Unremarkable Bones: No acute osseous abnormality. Buttons are noted overlying the upper and mid mediastinum which are most likely external to the patient. IMPRESSION: No acute cardiopulmonary disease. No acute displaced rib fractures.
[2025-03-19 19:44] VITALS: PULSE 53; RESP 16; O2SAT 98
[2025-03-19] MEDS: ATORVASTATIN 20 MG TAB PO SCH (22:00)
[2025-03-19] MEDS: APIXABAN 5 MG TAB PO SCH (22:00)
[2025-03-20] VITALS (13 sets, daily range): BP systolic 142–170; BP diastolic 69–89; PULSE 58–79; RESP 15–18; TEMP 36.8; O2SAT 96–98
[2025-03-20] MEDS ORDERED: METO-289 PO (02:32)
[2025-03-20 07:16] LABS: Basophils # (auto) 0 10 ^3/uL (0-0.2); Basophils % (auto) 0.4 % (0.0-2.0); Eosinophils # (auto) 0.2 10 ^3/uL (0-0.8); Eosinophils % (auto) 3.7 % (0.0-7.0); Hematocrit 44.1 % (41.0-53.0); Hemoglobin 15.3 g/dL (13.5-17.5); Lymphocytes # (auto) 1.1 10 ^3/uL (0.4-5.4); Lymphocytes % (auto) 18.4 % (10.0-50.0); Mean Corpuscular Hemoglobin 32.5 pg (28.0-32.0); Mean Corpuscular Hgb Conc. 34.7 g/dL (32.0-36.0); Mean Corpuscular Volume 93.7 fL (80.0-100.0); Monocytes # (auto) 0.7 10 ^3/uL (0-1.3); Neutrophils % (auto) 65.5 % (37.0-80.0); Nucleated Red Blood Cells % 0.2 %; Platelet Count (auto) 126 10^3/uL (140-450); Red Cell Distribution Width 13.2 % (11.8-14.3); White Blood Cell 6.1 10^3/uL (4.4-10.8)
[2025-03-20 07:29] LABS: Albumin 4.1 g/dL (3.2-4.8); Alkaline Phosphatase 72 U/L (46-116); Anion Gap 12 (5-15); BUN/Creatinine Ratio 13.9 (10.0-20.0); Blood Urea Nitrogen 11 mg/dL (9-23); Calcium 9.2 mg/dL (8.7-10.4); Carbon Dioxide 25 mmol/L (20-31); Chloride 106 mmol/L (98-107); Glucose 88 mg/dL (74-106); Potassium 3.6 mmol/L (3.5-5.1); Sodium 143 mmol/L (136-145); Total Protein 6.5 g/dL (5.7-8.2)
[2025-03-20 07:35] LABS: Alanine Aminotransferase 110 U/L (7-40); Aspartate Aminotransferase 99 U/L (<34)
--- NOTE | 2025-03-20 08:12 | DVH ---
MRI MRCP MRI HISTORY: r/o choledo COMPARISON: None PROCEDURE: Multiplanar multisequence MRI images were obtained of the abdomen without intravenous cont rast Additional MIPS were obtained of the biliary system. FINDINGS: Bile ducts: -Intrahepatic ducts: Non-dilated. -Extrahepatic ducts: Non-dilated. -Common bile duct: Non-dilated. -Filling defects: No filling defects -Stricture: None. Gallbladder: Multiple gallstones. Pancreas: Pancreatic duct: 1.2 cm cystic lesion in the pancreatic head. Lesions: None. Liver: Signal intensity: Homogenous. Contour: Smooth. Size: Normal. Lesions: No focal liver lesion. ADDITIONAL FINDINGS: Lung base: Normal. Pancreas: Normal. Spleen:Normal. Bowel: Normal. Adrenal glands:Normal. Kidneys and ureters:Small cysts. Lymph nodes:Normal. Peritoneum:Normal. Vessels: Normal. Abdominal wall: Normal. Bone: No aggressive bone lesions IMPRESSION: Cholelithiasis without visualization of choledocholithiasis. 1.2 cm cystic lesion in the pancreatic head could be a pseudocyst or IPMN.
== END 2025-03-20 17:27 | disposition home or self-care (01) | DRG 446 ==
LOC: ER 13:23 → OVERFLOW 16:19 → WEST WING 03-20 02:51
DX: K80.70 Calculus of gallbladder and bile duct without cholecystitis without obstruction (principal); E80.6 Other disorders of bilirubin metabolism; K59.00 Constipation, unspecified; E11.9 Type 2 diabetes mellitus without complications; I10 Essential (primary) hypertension; I48.91 Unspecified atrial fibrillation; E78.5 Hyperlipidemia, unspecified; R74.01 Elevation of levels of liver transaminase levels; Z79.01 Long term (current) use of anticoagulants; Z79.899 Other long term (current) drug therapy; Z79.84 Long term (current) use of oral hypoglycemic drugs
CPT/HCPCS: 36415; 71045; 74181; 76705; 80053; 81001; 82962; 83036; 83690; 84075; 84450; 84460; 85025; 96365; 99291; G0378; J2543

== ENCOUNTER 2025-04-25 11:26 | Inpatient (IN) | payer OTHER ==
[~2025-04-25] VITALS: Ht 185.4 cm; Wt 99.1 kg
[~2025-04-25 11:26] MED LIST changes: -CHLO25TA2 PO; -LISI40TA16 PO; +METO-289 PO
--- NOTE | 2025-04-25 11:51 | ED.PDOC ---
HPI (NEURO) HPI Comments 65 y/o M, with PMHx of AFib, DM, and HTN presents to the ED for CC of generalized weakness. Patient states, he has been generalized weakness with associated slurred speech x2days. Patient reports, to have difficulty ambulating without feeling as if he is going to fall down. Patient denies fever, chills, nausea, vomiting, dysuria, incontinence, or chest pain. No other associated symptoms, modifiers, recent injuries or sick contacts present at this time. Chief Complaint: General Weakness Time Seen by MD: 12:00 Primary Care Provider: Dr. Tenorio Reviewed Notes: Nurses Notes, Medications, Allergies Information Source: Patient Mode of Arrival: Wheelchair Severity: Moderate Dizziness/Weakness Severity: Unable to do activities Headache Severity: None Timing: Days Duration: Since onset Prehospital treatment: None Weakness Location: Generalized Onset: At rest Circumstances: Spontaneous Symptoms: Weakness Before: Normal During: Awake After: Normal Mentation History of: DM Modifying factors: Nothing Associated Signs and Symptoms: Weakness Past Medical History PAST MEDICAL HISTORY: AFIB, DM, HTN Surgical History: Denies all surgeries Family History Family History: Reviewed,noncontributory to illness Social History Smoker: Non-Smoker Alcohol: Occasionally Drugs: Denies Drug Use Lives In: Home Constitutional: reports: weakness; denies: chills, diaphoresis, fatigue, fever, malaise, sweats, others EENTM: denies: blurred vision, double vision, ear bleeding, ear discharge, ear drainage, ear pain, ear ringing, eye pain, eye redness, hearing loss, mouth pain, mouth swelling, nasal discharge, nose bleeding, nose congestion, nose pain, photophobia, tearing, throat pain, throat swelling, voice changes, others Respiratory: denies: cough, hemoptysis, orthopnea, SOB at rest, shortness of breath, SOB with excertion, stridor, wheezing, others Cardiovascular: denies: chest pain, dizzy spells, diaphoresis, Dyspnea on exertion, edema, irregular heart beat, left arm pain, lightheadedness, p alpitations, PND, syncope, others Gastrointestinal: denies: abdomen distended, abdominal pain, blood streaked bowels, constipated, diarrhea, dysphagia, difficulty swallowing, hematemesis, melena, nausea, poor appetite, poor fluid intake, rectal bleeding, rectal pain, vomiting, others Genitourinary: denies: burning, dysuria, flank pain, frequency, hematuria, incontinence, penile discharge, penile sore, pain, testicle pain, testicle swelling, urgency, others Neurological: denies: dizziness, fainting, headache, left sided numbness, left sided weakness, numbness, paresthesia, pre-existing deficit, right sided numbness, right sided weakness, seizure, speech problems, tingling, tremors, weakness, others Musculoskeletal: reports: others (BILATERAL LEG SWELLING); denies: back pain, gout, joint pain, joint swelling, muscle pain, muscle stiffness, neck pain Integumetry: denies: bruises, change in color, change in hair/nails, dryness, laceration, lesions, lumps, rash, wounds, others Allergic/Immunocompromised: denies: Difficulty Healing, Frequent Infections, Hives, Itching, others Hematologic/Lymphatic: denies: anemia, blood clots, easy bleeding, easy bruising, swollen glands, others Endocrine: denies: excessive hunger, excessive sweating, excessive thirst, excessive urination, flushing, intolerance to cold, intolerance to heat, unexplained weight gain, unexplained weight loss, others Psychiatric: denies: anxiety, bipolar disorder, depression, hopeless, panic disorder, schizophrenia, sleepless, suicidal, others All Other Systems: Reviewed and Negative Physical Exam General Appearance: Moderate Distress HEENT: Normal ENT Inspection, Pharynx Normal, TMs Normal Neck: Full Range of Motion, Non-Tender, Normal, Normal Inspection Respiratory: Chest Non-Tender, Lungs Clear, No Accessory Muscle Use, No Respiratory Distress, Normal Breath Sounds Cardiovascular: No Edema, No JVD, No Murmur, No Gallop, Normal Peripheral Pulses, Regular Rate/Rhythm Breast Exam: Deferred Gastrointestinal: No Organomegaly, Non Tender, No Pulsatile Mass, Normal Bowel Sounds, Soft Genitalia: Deferred Pelvic: Deferred Rectal: Deferred Extremities: No calf tenderness, Normal capillary refill, Normal inspection, Normal range of motion, Non-tender, No pedal edema Musculoskeletal : Apperance: Normal Neurologic: Alert, Speech Problem Cerebellar Function: NOT DONE Reflexes: NOT DONE Skin: Dry, Normal Color, Warm Peripheral Pulses: 3+ Radial (R), 3+ Radial (L) Lymphatic: No Adenopathy EKG EKG : Pulse Rate (adult): 68 Cardiac Rhythm: NSR Was a procedure done? Was a procedure done?: No Differential Diagnosis (SZ) Seizure: Psychogenic Seizure, Closed Head Injury, CVA/TIA, N/A General Weakness: Dehydration, Electrolyte imbalance, Hypoglycemia, Hypotension, TIA Headache: N/A X-Ray, Labs, Meds, VS Vital Signs Date Time Temp Pulse Resp B/P (MAP) Pulse Ox O2 Delivery O2 Flow Rate FiO2 04/25/25 12:08 68 04/25/25 11:42 68 04/25/25 11:40 98.4 67 20 149/75 (99) 99 98.4 Lab Test 04/25/25 12:48 04/25/25 12:03 Range/Units White Blood Count 6.0 4.4-10.8 10^3/uL Red Blood Count 4.79 4.5-5.90 10^6/uL Hemoglobin 15.5 13.5-17.5 g/dL Hematocrit 45.3 41.0-53.0 % Mean Corpuscular Volume 94.6 80.0-100.0 fL Mean Corpuscular Hemoglobin 32.4 H 28.0-32.0 pg Mean Corpuscular Hemoglobin Concent 34.2 32.0-36.0 g/dL Red Cell Distribution Width 14.7 H 11.8-14.3 % Platelet Count 148 140-450 10^3/uL Mean Platelet Volume 8.6 6.9-10.8 fL Neutrophils (%) (Auto) 76.1 37.0-80.0 % Lymphocytes (%) (Auto) 15.0 10.0-50.0 % Monocytes (%) (Auto) 7.9 0.0-12.0 % Eosinophils (%) (Auto) 0.5 0.0-7.0 % Basophils (%) (Auto) 0.5 0.0-2.0 % Neutrophils # (Auto) 4.6 1.6-8.6 10 ^3/uL Lymphocytes # (Auto) 0.9 0.4-5.4 10 ^3/uL Monocytes # (Auto) 0.5 0-1.3 10 ^3/uL Eosinophils # (Auto) 0 0-0.8 10 ^3/uL Basophils # (Auto) 0 0-0.2 10 ^3/uL Nucleated Red Blood Cells 0.0 % Sodium Level Pending Potassium Level Pending Chloride Level Pending Carbon Dioxide Level Pending Anion Gap Pending Blood Urea Nitrogen Pending Creatinine Pending Glomerular Filtration Rate Calc Pending BUN/Creatinine Ratio Pending Serum Glucose Pending Calcium Level Pending Troponin I High Sensitivity Pending Urine Color Pending Urine Clarity Pending Urine pH Pending Urine Specific [place] Pending Urine Protein Pending Urine Ketones Pending Urine Blood Pending Urine Nitrite Pending Urine Bilirubin Pending Urine Urobilinogen Pending Urine Leukocyte Esterase Pending Urine RBC Pending Urine Microscopic WBC Pending Urine Squamous Epithelial Cells Pending Urine Bacteria Pending Urine Glucose Pending [facility] [id number] [place] [id number] Ph: [phone] DIAGNOSTIC IMAGING Diagnostic Imaging Report : [id number] Signed PATIENT: YAN RIBEIRO ACCT: [id number] UNIT: [id number] : 1960 LOC: ER ROOM / BED: / AGE / SEX: 65 / M ADM STATUS: REG ER SERVICE 1203 ORDERING PHYSICIAN: FELICIANO KERNS MD PROCEDURE(s): HWOCT - HEAD WITHOUT CONTRAST REASON: tia ORDER NUMBER(s): [id number], ACCESSION NUMBER(s): [id number] EXAM: CT HEAD WITHOUT CONTRAST HISTORY: tia COMPARISON: CT HEAD WITHOUT CONTRAST on DOS: 10/08/24 TECHNIQUE: Noncontrast axial CT images of the head were performed. Sagittal and coronal reformatted images were obtained. This CT exam was performed using 1 or more of the following dose reduction techniques: Automated exposure control, adjustment of the mA and/or kv according to patient size, or the use of iterative reconstruction techniques. Radiation Dose: CTDI volume is 52.45 mGy. Dose-length product is 839.22 mGy*cm FINDINGS: No intracranial hemorrhage, mass, midline shift, hydrocephalus, or evidence of acute large vessel infarct. There is mild decreased attenuation in the periventricular white matter. There is a tiny cavum septum pellucidum. There are mucous retention cysts in the bilateral maxillary sinuses. There is sclerosis of the bilateral mastoid air cells. The middle ear spaces are clear. No cranial fracture or scalp edema. IMPRESSION: 1. Mild chronic ischemic changes without evidence of acute intracranial process. 2. Bilateral maxillary sinus disease. ATED BY: TRACI DAVID MD DICTATED DATE/TIME: 04/25/251245 SIGNED BY: TRACI DAVID MD SIGNED DATE/TIME: 04/25/251245 CC: [place] [id number] Ph: [phone] DIAGNOSTIC IMAGING Diagnostic Imaging Report : [id number] Signed PATIENT: YAN RIBEIRO ACCT: [id number] UNIT: [id number] : 1960 LOC: ER ROOM / BED: / AGE / SEX: 65 / M ADM STATUS: REG ER SERVICE 1203 ORDERING PHYSICIAN: FELICIANO KERNS MD PROCEDURE(s): CXRP - CHEST PORTABLE REASON: sob ORDER NUMBER(s): [id number], ACCESSION NUMBER(s): [id number] EXAM: XY CHEST PORTABLE Indication: sob Technique: Single frontal view of the chest was obtained Comparison: XY CHEST XRAY 1 VIEW on DOS: 03/19/25, XY CHEST XRAY 1 VIEW on DOS: 12/11/24, XY CHEST PORTABLE on DOS: 12/07/24, XY CHEST PORTABLE on DOS: 10/08/24 FINDINGS: Lines and Tubes: None Lungs: No focal consolidation. Pleura: No effusion. No pneumothorax. Cardiomediastinal contours: Unremarkable Bones: No acute osseous abnormality. IMPRESSION: No acute cardiopulmonary disease. ATED BY: OLIVIER TIDWELL MD DICTATED DATE/TIME: 04/25/251239 SIGNED BY: OLIVIER TIDWELL MD SIGNED DATE/TIME: 04/25/251239 CC: Patient alert. Speech difficulty. Vitals stable. Moving all extremities. History of atrial fibrillation. He is taking blood thinner. Speech difficulty started few days ago. Family at bedside. CT scan of the head reviewed does not show any acute changes. Explained to the family. Continue monitoring. Time of 1ST Reevaluation: 12:30 Reevaluation 1ST: Unchanged Patient Education/Counseling: Diagnosis, Treatment Family Education/Counseling: No Family Present Departure 1 Departure Time of Disposition: 12:07 Impression: Primary Impression: TIA (transient ischemic attack) Disposition: 09 ADMITTED INPATIENT Admit to: Med Surg Condition: Guarded Critical Care Note Critical Care Time?: Yes (90 min-critical care time only) Critical care comment: Possibly will need MRI Stability Stability form required: No Heart Score Heart Score: Heart Score Response (Comments) Value History Slightly Suspicious 0 EKG Normal 0 Age >65 2 Risk Factors >3 or Hx ASHD 2 Troponin Normal limit 0 Total 4 I personally scribed for FELICIANO KERNS MD ([email or web address]) on 04/25/25 at 11:51. Electronically submitted by Edwige Frank ([email or web address]). I personally scribed for FELICIANO KERNS MD ([email or web address]) on 04/25/25 at 12:03. Electronically submitted by Edwige Frank ([email or web address]). I personally scribed for FELICIANO KERNS MD ([email or web address]) on 04/25/25 at 13:13. Electronically submitted by Edwige Frank ([email or web address]). I personally scribed for FELICIANO KERNS MD ([email or web address]) on 04/25/25 at 13:14. Electronically submitted by Edwige Frank ([email or web address]). FELICIANO KERNS MD Apr 25, 2025 11:51
--- NOTE | 2025-04-25 12:43 | DVH ---
EXAM: XY CHEST PORTABLE Indication: sob Technique: Single frontal view of the chest was obtained Comparison: XY CHEST XRAY 1 VIEW on DOS: 03/19/25, XY CHEST XRAY 1 VIEW on DOS: 12/11/24, XY CHEST LOW BLE on DOS: 12/07/24, XY CHEST PORTABLE on DOS: 10/08/24 FINDINGS: Lines and Tubes: None Lungs: No focal consolidation. Pleura: No effusion. No pneumothorax. Cardiomediastinal contours: Unremarkable Bones: No acute osseous abnormality. IMPRESSION: No acute cardiopulmonary disease.
--- NOTE | 2025-04-25 12:48 | DVH ---
EXAM: CT HEAD WITHOUT CONTRAST HISTORY: tia COMPARISON: CT HEAD WITHOUT CONTRAST on DOS: 10/08/24 TECHNIQUE: Noncontrast axial CT images of the head were performed. Sagittal and coronal reformatted i mages were obtained. This CT exam was performed using 1 or more of the following dose reduction techn iques: Automated exposure control, adjustment of the mA and/or kv according to patient size, or the u se of iterative reconstruction techniques. Radiation Dose: CTDI volume is 52.45 mGy. Dose-length product is 839.22 mGy*cm FINDINGS: No intracranial hemorrhage, mass, midline shift, hydrocephalus, or evidence of acute large vessel inf arct. There is mild decreased attenuation in the periventricular white matter. There is a tiny cavum septum pellucidum. There are mucous retention cysts in the bilateral maxillary sinuses. There is scl erosis of the bilateral mastoid air cells. The middle ear spaces are clear. No cranial fracture or s calp edema. IMPRESSION: 1. Mild chronic ischemic changes without evidence of acute intracranial process. 2. Bilateral maxillary sinus disease.
[2025-04-25 13:08] LABS: Hematocrit 45.3 % (41.0-53.0); Hemoglobin 15.5 g/dL (13.5-17.5); Mean Corpuscular Hemoglobin 32.4 pg (28.0-32.0); Mean Corpuscular Volume 94.6 fL (80.0-100.0); Nucleated Red Blood Cells % 0.0 %
[2025-04-25 13:15] LABS: Anion Gap 9 (5-15); Carbon Dioxide 26 mmol/L (20-31); Chloride 106 mmol/L (98-107); Potassium 4.3 mmol/L (3.5-5.1); Sodium 141 mmol/L (136-145)
[2025-04-25 13:16] LABS: Calcium 9.6 mg/dL (8.7-10.4)
[2025-04-25 13:21] LABS: BUN/Creatinine Ratio 14.7 (10.0-20.0); Blood Urea Nitrogen 14 mg/dL (9-23)
[2025-04-25 13:27] LABS: Glucose 162 mg/dL (74-106)
[2025-04-25 13:33] LABS: Urine Protein, UAD TRACE (Negative)
[2025-04-25] MEDS ORDERED: DEXTROSE (50%) 50ML SYRG IV PRN (15:30)
[2025-04-25] MEDS ORDERED: DOCUSATE SOD 100 MG CAP PO PRN (15:30)
[2025-04-25] MEDS ORDERED: ONDANSETRON HCL 4 MG/2 ML VIAL IV PRN (15:30)
[2025-04-25] MEDS ORDERED: HYDROcodone-ACET 5/325MG TAB PO PRN (15:30)
[2025-04-25] MEDS: ACCU-CHEK COMFORT CURVE STRIP VI SCH (17:27)
[2025-04-25] MEDS: InsuLIN REG 1unit/0.01ml Soln (100units/ml) SC SCH ×2 (17:29→22:00)
--- NOTE | 2025-04-25 17:33 | DVHHP2 ---
History of Present Illness Reason for Visit: Right-sided weakness History of Present Illness The patient is a 65-year-old male with past medical history of AFib, diabetes mellitus, hypertension, and hyperlipidemia who presented to [facility] ED with complaint of generalized weakness. Patient reports symptoms progressively get worse with slurred speech for the past 2 days, right facial droop, difficulty ambulating, getting worse that prompted this visit. Patient was seen and evaluated in the ED, laboratory data shows WBC 6.0, platelets 148, sodium 141, potassium 4.3, BUN 14, creatinine 0.95, GFR 88, glucose 162, calcium 9.5, troponin 3. Head CT revealing mild chronic ischemic changes without evidence of acute intracranial process, bilateral maxillary sinus disease. Please see medication orders section in the computer. On my assessment, patient denied chest pain, no headache, no dizziness, no diaphoresis, no shortness of breaths, no diarrhea, no nausea, no vomiting, no fever, no chills. Patient was admitted for further evaluation and medical management. Past Medical History AFIB, DM, HTN, HLD Past Surgical History Denies all surgeries Family History Reviewed, noncontributory to the management of this case. Past Social History The patient lives at home, denies smoking, alcohol or illicit drugs abuse. Review of Systems Constitutional: Yes: Weakness, Other (Facial droops); No: Fever, Chills, Sweats, Malaise Eyes: No: Pain, Vision change, Conjunctivae inflammation, Eyelid inflammation, Other, Redness ENT: No: Ear pain, Ear discharge, Nose pain, Nose discharge, Nose congestion, Mouth pain, Mouth swelling, Throat pain, Throat swelling, Other Respiratory: No: Cough, Dry, Shortness of breath, SOB with excertion, Wheezing, Hemoptysis, Pleuritic Pain, Sputum, Wheezing, Other Cardiovascular: No: Chest Pain, Palpitations, Orthopnea, Paroxysmal Noc. Dyspnea, Edema, Lt Headedness, Other Gastrointestinal: No: Nausea, Vomiting, Abdominal Pain, Diarrhea, Constipation, Melena, Hematochezia, Other Genitourinary: No Dysuria, No Frequency, No Incontinence, No Hematuria, No Retention, No Other Musculoskeletal: other (Bilateral leg swelling); No: neck pain, shoulder pain, arm pain, back pain, hand pain, leg pain, foot pain Skin: No: Rash, Lesions, Jaundice, Bruising, Other Neurological: Weakness; No: Numbness, Incoordination, Change in speech, Confusion, Seizures, Other Allergies: Coded Allergies: NO KNOWN ALLERGIES (Unverified , 10/06/24) Medications Current Medications Medications Dose Ordered Sig/Karthikeyan Route Start Time Stop Time Status Last Admin Dose Admin Metoprolol Tartrate 25 mg BID PO 04/25/25 22:00 Atorvastatin Calcium 20 mg HS PO 04/25/25 22:00 Hydralazine HCl 10 mg Q6HP PRN IV 04/25/25 15:30 Diagnostic Test (Pha) 1 strip ACHS 04/25/25 17:00 04/25/25 17:27 1 STRIP Insulin Human Regular HS SC 04/25/25 22:00 Insulin Human Regular AC SC 04/25/25 17:00 04/25/25 17:29 2 UNITS Dextrose 50 ml UD PRN IV 04/25/25 15:30 Sodium Chloride 10 ml Q8HR IV 04/25/25 22:00 Acetaminophen/ Hydrocodone Bitart 1 tab Q4HP PRN PO 04/25/25 15:30 Ondansetron HCl 4 mg Q4HP PRN IV 04/25/25 15:30 Docusate Sodium 100 mg BIDPRN PRN PO 04/25/25 15:30 Acetaminophen 650 mg Q6HP PRN PO 04/25/25 15:30 Exam Vital Signs Vital Signs Date Time Temp Pulse Resp B/P (MAP) Pulse Ox O2 Delivery O2 Flow Rate FiO2 04/25/25 16:20 56 15 139/74 (95) 98 04/25/25 13:49 98.0 98.0 General Appearance: Alert, Cooperative, No acute distress HEENT: Atraumatic, PERRLA, EOMI, Mucous membr. moist/pink Respiratory: Normal air movement Cardiovascular: Regular rate, Normal S1, Normal S2, No murmurs Abdominal: Normal bowel sounds, Soft, No tenderness, No hepatospenomegaly, No masses Extremities: No clubbing, No cyanosis, No edema, Normal pulses, Other (Bilateral leg swelling) Skin: No rashes, No significant lesion Neuro: Normal speech, Normal tone, Sensation intact, Cranial nerves 3-12 NL, Reflexes 2+, Other (Generalized weakness) Psych/Mental Status: Mental status NL, Mood NL Labs/Xrays Labs Test 04/25/25 13:57 04/25/25 12:48 04/25/25 12:03 Range/Units Troponin I High Sensitivity 3 L </=54 ng/L White Blood Count 6.0 4.4-10.8 10^3/uL Red Blood Count 4.79 4.5-5.90 10^6/uL Hemoglobin 15.5 13.5-17.5 g/dL Hematocrit 45.3 41.0-53.0 % Mean Corpuscular Volume 94.6 80.0-100.0 fL Mean Corpuscular Hemoglobin 32.4 H 28.0-32.0 pg Mean Corpuscular Hemoglobin Concent 34.2 32.0-36.0 g/dL Red Cell Distribution Width 14.7 H 11.8-14.3 % Platelet Count 148 140-450 10^3/uL Mean Platelet Volume 8.6 6.9-10.8 fL Neutrophils (%) (Auto) 76.1 37.0-80.0 % Lymphocytes (%) (Auto) 15.0 10.0-50.0 % Monocytes (%) (Auto) 7.9 0.0-12.0 % Eosinophils (%) (Auto) 0.5 0.0-7.0 % Basophils (%) (Auto) 0.5 0.0-2.0 % Neutrophils # (Auto) 4.6 1.6-8.6 10 ^3/uL Lymphocytes # (Auto) 0.9 0.4-5.4 10 ^3/uL Monocytes # (Auto) 0.5 0-1.3 10 ^3/uL Eosinophils # (Auto) 0 0-0.8 10 ^3/uL Basophils # (Auto) 0 0-0.2 10 ^3/uL Nucleated Red Blood Cells 0.0 % Sodium Level 141 136-145 mmol/L Potassium Level 4.3 3.5-5.1 mmol/L Chloride Level 106 98-107 mmol/L Carbon Dioxide Level 26 20-31 mmol/L Anion Gap 9 5-15 Blood Urea Nitrogen 14 9-23 mg/dL Creatinine 0.95 0.700-1.30 mg/dL Glomerular Filtration Rate Calc 88 >90 mL/min BUN/Creatinine Ratio 14.7 10.0-20.0 Serum Glucose 162 H 74-106 mg/dL Calcium Level 9.6 8.7-10.4 mg/dL B-Type Natriuretic Peptide 32.96 0-100 pg/mL Urine Color Light-orange Yellow Urine Clarity Ex.turbid Clear Urine pH 5.5 5.0-9.0 Urine Specific [place] 1.030 1.001-1.035 Urine Protein Trace H Negative Urine Ketones 1+ H Negative Urine Blood Negative Negative /uL Urine Nitrite Negative Negative Urine Bilirubin Negative Negative Urine Urobilinogen 2 H Negative mg/dL Urine Leukocyte Esterase Negative Negative /uL Urine RBC 3 0 - 3 /hpf Urine Microscopic WBC 46 H 0-3 /HPF Urine Squamous Epithelial Cells None seen <5 /hpf Urine Bacteria None seen None Seen /hpf Urine Mucus Few None Seen Urine Glucose 1+ H Normal mg/dL PATIENT: YAN RIBEIRO ACCT: [id number] UNIT: [id number] : 1960 LOC: ER ROOM / BED: / AGE / SEX: 65 / M ADM STATUS: REG ER SERVICE 1203 ORDERING PHYSICIAN: FELICIANO KERNS MD PROCEDURE(s): HWOCT - HEAD WITHOUT CONTRAST REASON: tia ORDER NUMBER(s): [id number], ACCESSION NUMBER(s): [id number] EXAM: CT HEAD WITHOUT CONTRAST HISTORY: tia COMPARISON: CT HEAD WITHOUT CONTRAST on DOS: 10/08/24 TECHNIQUE: Noncontrast axial CT images of the head were performed. Sagittal and coronal reformatted images were obtained. This CT exam was performed using 1 or more of the following dose reduction techniques: Automated exposure control, adjustment of the mA and/or kv according to patient size, or the use of iterative reconstruction techniques. Radiation Dose: CTDI volume is 52.45 mGy. Dose-length product is 839.22 mGy*cm FINDINGS: No intracranial hemorrhage, mass, midline shift, hydrocephalus, or evidence of acute large vessel infarct. There is mild decreased attenuation in the periventricular white matter. There is a tiny cavum septum pellucidum. There are mucous retention cysts in the bilateral maxillary sinuses. There is sclerosis of the bilateral mastoid air cells. The middle ear spaces are clear. No cranial fracture or scalp edema. IMPRESSION: 1. Mild chronic ischemic changes without evidence of acute intracranial process. 2. Bilateral maxillary sinus disease. ORDERING PHYSICIAN: FELICIANO KERNS MD PROCEDURE(s): CXRP - CHEST PORTABLE REASON: sob ORDER NUMBER(s): [id number], ACCESSION NUMBER(s): [id number] EXAM: XY CHEST PORTABLE Indication: sob Technique: Single frontal view of the chest was obtained Comparison: XY CHEST XRAY 1 VIEW on DOS: 03/19/25, XY CHEST XRAY 1 VIEW on DOS: 12/11/24, XY CHEST PORTABLE on DOS: 12/07/24, XY CHEST PORTABLE on DOS: 10/08/24 FINDINGS: Lines and Tubes: None Lungs: No focal consolidation. Pleura: No effusion. No pneumothorax. Cardiomediastinal contours: Unremarkable Bones: No acute osseous abnormality. IMPRESSION: No acute cardiopulmonary disease. SEPSIS Sepsis Screen Date sepsis recognized/suspect: Apr 25, 2025 Time Sepsis recognized/suspect: 1135 Recent Procedure: No On Antibiotic Therapy: No Respiratory Rate >20: No Heart Rate >90: No Temp<36 C (96.8 F) or >38.3 C: No SBP <90 or MAP <65 mmHG: No New Acute Mental Status Change: No Is the patient on CPAP, BIPAP,: No Physician Orders Electrocardigram (04/25/25 11:48) Head Without Contrast (04/25/25 12:03) Chest Portable (04/25/25 12:03) Metoprolol Tartrate Tablet (Lopressor Ta (04/25/25 22:00) Atorvastatin (Lipitor) (04/25/25 22:00) Hydralazine Injection (Apresoline Inject (04/25/25 15:30) Consistent Carb(Ccho)Diabetes (04/25/25 Dinner) Glucose Blood (Accu-Chek Comfort Curve T (04/25/25 17:00) Insulin R (Human) (Insulin R) (04/25/25 22:00) Insulin R (Human) (Insulin R) (04/25/25 17:00) Dextrose 50% Syringe (04/25/25 15:30) Allergies (04/25/25 15:20) Code Status (04/25/25 15:20) Sodium Chloride Lock (Saline Lock Ns) (04/25/25 22:00) Oxygen Per Hour (04/25/25 15:20) Hydrocodone-Acet 5/325mg Tab ([place] 5/32 (04/25/25 15:30) Ondansetron Hcl (Zofran) (04/25/25 15:30) Docusate Sodium Capsule (Colace Capsule) (04/25/25 15:30) Complete Blood Count (04/26/25 04:00) Comprehensive Metabolic Panel (04/26/25 04:00) Condition: Serious (04/25/25 15:20) Acetaminophen Tablet (Tylenol Tablet) (04/25/25 15:30) Bedrest With Bathroom Privileg (04/25/25 15:20) Sequential Compression Device (04/25/25 ) Admit (04/25/25 17:32) Nitroglycerin Sublingual (Ntrostat Subli (04/25/25 17:45) Morphine Sulfate Injection (04/25/25 17:45) Stat Ekg For Chest Pain (04/25/25 17:32) Notify Md Of Changes From Base (04/25/25 17:32) Yard Coupler For 24 Hours (04/25/25 17:32) Emergency Dysrhythmia Protocol (04/25/25 17:32) Rhythm Strips Once Every Shift (04/25/25 17:32) Oxygen By Nasal Cannula (04/25/25 17:32) Vital Signs Date Time Temp Pulse Resp B/P (MAP) Pulse Ox O2 Delivery O2 Flow Rate FiO2 04/25/25 16:20 56 15 139/74 (95) 98 04/25/25 13:49 98.0 56 16 117/65 (82) 100 98.0 04/25/25 12:08 68 04/25/25 11:42 68 04/25/25 11:40 98.4 67 20 149/75 (99) 99 98.4 Laboratory Tests Test 04/25/25 12:48 White Blood Count 6.0 10^3/uL (4.4-10.8) Medications Medications Dose Ordered Sig/Karthikeyan Route Start Time Stop Time Status Last Admin Dose Admin Diagnostic Test (Pha) 1 strip ACHS 04/25/25 17:00 04/25/25 17:27 1 STRIP Insulin Human Regular AC SC 04/25/25 17:00 04/25/25 17:29 2 UNITS Assessment/Plan Assessment/Plan Right-sided weakness TIA (transient ischemic attack) Diabetes mellitus with hyperglycemia Plan 1. Admit to telemetry unit 2. Breathing treatment 3. Pain control management 4. Management of fluids and electrolytes 5. Consultation for Neurology 6. Diagnostic tests head CT 7. DVT prophylaxis-on Lovenox 8. Repeat labs CBC, CMP in a.m. 9. Continue with current medical management 10. Treatment plan discussed with patient and RN. Patient verbalized understanding. Plan discussed with: Patient, Other (RN) My Orders Orders - MACKENZIE CHRISTIANSON DNP Procedure Category Date Status Time Metoprolol Tartrate PHA 04/25/25 In Process Tablet (Lopressor Ta 22:00 Atorvastatin (Lipitor) PHA 04/25/25 In Process 22:00 Hydralazine Injection PHA 04/25/25 In Process (Apresoline Inject 15:30 Consistent DIET 04/25/25 Transmitted Carb(Ccho)Diabetes Dinner Glucose Blood PHA 04/25/25 In Process (Accu-Chek Comfort 17:00 Insulin R (Human) PHA 04/25/25 In Process (Insulin R) 22:00 Insulin R (Human) PHA 04/25/25 In Process (Insulin R) 17:00 Dextrose 50% Syringe PHA 04/25/25 In Process 15:30 Allergies GREG 04/25/25 In Process 15:20 Code Status CODE 04/25/25 Transmitted 15:20 Sodium Chloride Lock PHA 04/25/25 In Process (Saline Lock Ns) 22:00 Oxygen Per Hour RT 04/25/25 Transmitted 15:20 Hydrocodone-Acet PHA 04/25/25 In Process 5/325mg Tab ([place] 15:30 Ondansetron Hcl PHA 04/25/25 In Process (Zofran) 15:30 Docusate Sodium PHA 04/25/25 In Process Capsule (Colace 15:30 Complete Blood Count LAB 04/26/25 Verified 04:00 Comprehensive LAB 04/26/25 Verified Metabolic Panel 04:00 Condition: Serious GREG 04/25/25 In Process 15:20 Acetaminophen Tablet PHA 04/25/25 In Process (Tylenol Tablet) 15:30 Bedrest With Bathroom GREG 04/25/25 In Process Privileg 15:20 Sequential GREG 04/25/25 In Process Compression Device Admit ADMIT 04/25/25 Verified 17:32 Nitroglycerin PHA 04/25/25 Verified Sublingual (Ntrostat 17:45 Morphine Sulfate PHA 04/25/25 Verified Injection 17:45 Stat Ekg For Chest GREG 04/25/25 Verified Pain 17:32 Notify Md Of Changes [facility] 04/25/25 Verified From Base 17:32 Yard Coupler For [facility] 04/25/25 Verified 24 Hours 17:32 Emergency Dysrhythmia [facility] 04/25/25 Verified Protocol 17:32 Rhythm Strips Once [facility] 04/25/25 Verified Every Shift 17:32 Oxygen By Nasal RT 04/25/25 Verified Cannula 17:32 Problem List: (1) Right sided weakness (2) TIA (transient ischemic attack) (3) Diabetes mellitus with hyperglycemia Date of Service: Apr 25, 2025 Billing Provider: MACKENZIE CHRISTIANSON DNP Common Visit Codes: [id number] INP/OBS CARE (HIGH) MACKENZIE CHRISTIANSON DNP Apr 25, 2025 17:33
[2025-04-25 17:43] VITALS: PULSE 57; RESP 16; O2SAT 100
[2025-04-25] MEDS ORDERED: MORPHINE SULFATE INJ 2 MG/ml SYRG IV PRN (17:45)
[2025-04-25] MEDS ORDERED: NITROGLYCERIN 0.4 MG SL TAB SL PRN (17:45)
--- NOTE | 2025-04-25 19:52 | DVHINCON2 ---
Date of service: Apr 25, 2025 Referring Physician Ronak Reason for Consultation Right-sided weakness History of Present Illness Mr. Romero is a 65 years old not sure left-handed gentleman with a history of hypertension, diabetes, atrial fibrillation, he came to the [facility] on 04/25/2025 with a chief complaint of general weakness. At that time, he is alert and fully oriented, but with obvious speech difficulty, the history is obtained from him and his daughter On 04/23/2025, he developed weakness in both lower extremities, in that he could not stand himself up, on 04/24/2025, in that she had to the ongoing both leg weakness, gait disturbance, he also developed progress slurry speech, and in the morning on 04/25/25, he notes himself not able to express him properly or does not know how to get words out, he also noticed dysphagia in that he can only swallow water He has never had similar problem before, he denies a history of stroke He has hypertension, diabetes, atrial fibrillation, he reports good compliance to all the treatment Urinalysis, 04/25/2025: WBC: 46, urine leukocyte esterase: Negative CBC, 04/25/2025: Unremarkable BMP 04/25/2025: Unremarkable HGB A1c, 03/19/2025: 6.3 TBI/AST/ALT/AP, 03/20/2025: 1/9//110/72 CT head, 04/25/2025: 1. Mild chronic ischemic changes without evidence of acute intracranial process. 2. Bilateral maxillary sinus disease. Past Medical History Hypertension, diabetes, atrial fibrillation Past Surgical History No major surgeries Family History: FH: emphysema G8 MOTHER FH: liver cancer G8 FATHER Family History COPD, liver cancer Social History He has no history of tobacco smoking, drug or alcohol abuse Allergies: Coded Allergies: NO KNOWN ALLERGIES (Unverified , 10/06/24) Home Meds Active Scripts Diltiazem HCl Coated Beads (Cardizem Cd) 120 Mg Cap, 120 MG PO DAILY for 30 Days, #30 CAP 2 Refills Prov:BELLO NAVA [employer]GER 12/08/24 Reported Medications Metoprolol Succinate (Metoprolol Succinate Er) 50 Mg Tab, 1 TAB PO DAILY, #30 TAB 5 Refills 03/20/25 Atorvastatin Calcium (Lipitor) 20 Mg Tab, 20 MG PO HS 12/07/24 Apixaban Base (ELIQUIS) 5 Mg Tab, 1 TAB PO BID 12/07/24 Metformin Hydrochloride (Metformin Hcl) 1,000 Mg Tab, 1 TAB PO BID 12/07/24 Current Medications Current Medications Medications (Trade) Dose Ordered Sig/Karthikeyan Route PRN Reason Start Time Stop Time Status Last Admin Metoprolol Tartrate (Lopressor Tablet) 25 mg BID PO 04/25/25 22:00 Atorvastatin Calcium (Lipitor) 20 mg HS PO 04/25/25 22:00 Hydralazine HCl (Apresoline Injection) 10 mg Q6HP PRN IV SBP>150 04/25/25 15:30 Diagnostic Test (Pha) (Accu-Chek Comfort Curve T) 1 strip ACHS 04/25/25 17:00 04/25/25 17:27 Insulin Human Regular (InsuLIN R) HS SC 04/25/25 22:00 Insulin Human Regular (InsuLIN R) AC SC 04/25/25 17:00 04/25/25 17:29 Dextrose 50 ml UD PRN IV Blood Sugar LESS THAN 60 04/25/25 15:30 Sodium Chloride (Saline Lock Ns) 10 ml Q8HR IV 04/25/25 22:00 Acetaminophen/ Hydrocodone Bitart ([place] 5/325MG Tab) 1 tab Q4HP PRN PO MODERATE PAIN (4-6 PAIN SCALE) 04/25/25 15:30 Ondansetron HCl (Zofran) 4 mg Q4HP PRN IV NAUSEA / VOMITING 04/25/25 15:30 Docusate Sodium (Colace Capsule) 100 mg BIDPRN PRN PO FOR CONSTIPATION 04/25/25 15:30 Acetaminophen (Tylenol Tablet) 650 mg Q6HP PRN PO PAIN SCALE 1-3 OR TEMP>100.4 04/25/25 15:30 Nitroglycerin (Ntrostat Sublingual) 0.4 mg Q5MINP PRN SL FOR CHEST PAIN 04/25/25 17:45 Morphine Sulfate 2 mg Q30M PRN IV FOR CHEST PAIN 04/25/25 17:45 Review of Systems As above, the other systems are negative Vital Signs Vital Signs Date Time Temp Pulse Resp B/P (MAP) Pulse Ox O2 Delivery O2 Flow Rate FiO2 04/25/25 17:43 57 16 100 Room Air* 0 21 04/25/25 17:43 97.8 151/75 (100) 97.8 Physical Exam GENERAL EXAM: General: the patient is well developed and nourished. No acute distress. HEENT: Normocephalic, neck is supple, no carotid bruits. No mass. RESPIRATORY: Normal respiratory effort with symmetrical lung expansion. Lungs clear to auscultation. CARDIOVASCULAR: Regular rate and rhythm with no murmurs. S1, S2. ABDOMEN: Soft, nontender, normal bowel sound NEUROLOGICAL: MENTAL STATUS: Awake and alert. Oriented to person, place, time and general circumstances. Able to give personal history. The patient is aware of recent events SPEECH, LANGUAGE, HIGHER CORTICAL FUNCTION: Mild expressive of seizure, and [id number] dysarthria CRANIAL NERVES: #2: Intact visual amaral to confrontation. The optic discs were sharp. #3,4,6: Pupils are equal, round and reactive. EOMs full and conjugate. Mild bilateral gaze evoked nystagmus. #5: Facial sensation intact in all three divisions bilaterally. Mandibular strength intact. #7: Facial muscles symmetrical and strength intact. #8: Hearing grossly normal to voice. #9,10: Uvula and soft palate rise in the midline. Swallow and voice are normal. #11: Trapezius and sternomastoid strength intact bilaterally. #12: Tongue midline. No fasciculations or atrophy. SENSATION: Sensation to touch and pinprick is normal. MOTOR: Normal tone in the upper and lower extremity. Normal muscle bulk. No fasciculations. No abnormal movements or posturing. Muscle strength of the major groups in the extremities is 5/5 except for 4/5 in the right arm with right upper extremity drift REFLEXES: Deep tendon reflexes normal and symmetrical. No pathological reflexes. CEREBELLAR/COORDINATION: Finger to nose is normal bilaterally. GAIT/STATION: deferred. Labs/Diagnostic Data Labs Test 04/25/25 17:25 04/25/25 13:57 04/25/25 12:48 04/25/25 12:03 Range/Units POC Glucose 134 H 70-106 mg/dl Troponin I High Sensitivity 3 L </=54 ng/L White Blood Count 6.0 4.4-10.8 10^3/uL Red Blood Count 4.79 4.5-5.90 10^6/uL Hemoglobin 15.5 13.5-17.5 g/dL Hematocrit 45.3 41.0-53.0 % Mean Corpuscular Volume 94.6 80.0-100.0 fL Mean Corpuscular Hemoglobin 32.4 H 28.0-32.0 pg Mean Corpuscular Hemoglobin Concent 34.2 32.0-36.0 g/dL Red Cell Distribution Width 14.7 H 11.8-14.3 % Platelet Count 148 140-450 10^3/uL Mean Platelet Volume 8.6 6.9-10.8 fL Neutrophils (%) (Auto) 76.1 37.0-80.0 % Lymphocytes (%) (Auto) 15.0 10.0-50.0 % Monocytes (%) (Auto) 7.9 0.0-12.0 % Eosinophils (%) (Auto) 0.5 0.0-7.0 % Basophils (%) (Auto) 0.5 0.0-2.0 % Neutrophils # (Auto) 4.6 1.6-8.6 10 ^3/uL Lymphocytes # (Auto) 0.9 0.4-5.4 10 ^3/uL Monocytes # (Auto) 0.5 0-1.3 10 ^3/uL Eosinophils # (Auto) 0 0-0.8 10 ^3/uL Basophils # (Auto) 0 0-0.2 10 ^3/uL Nucleated Red Blood Cells 0.0 % Sodium Level 141 136-145 mmol/L Potassium Level 4.3 3.5-5.1 mmol/L Chloride Level 106 98-107 mmol/L Carbon Dioxide Level 26 20-31 mmol/L Anion Gap 9 5-15 Blood Urea Nitrogen 14 9-23 mg/dL Creatinine 0.95 0.700-1.30 mg/dL Glomerular Filtration Rate Calc 88 >90 mL/min BUN/Creatinine Ratio 14.7 10.0-20.0 Serum Glucose 162 H 74-106 mg/dL Calcium Level 9.6 8.7-10.4 mg/dL B-Type Natriuretic Peptide 32.96 0-100 pg/mL Urine Color Light-orange Yellow Urine Clarity Ex.turbid Clear Urine pH 5.5 5.0-9.0 Urine Specific [place] 1.030 1.001-1.035 Urine Protein Trace H Negative Urine Ketones 1+ H Negative Urine Blood Negative Negative /uL Urine Nitrite Negative Negative Urine Bilirubin Negative Negative Urine Urobilinogen 2 H Negative mg/dL Urine Leukocyte Esterase Negative Negative /uL Urine RBC 3 0 - 3 /hpf Urine Microscopic WBC 46 H 0-3 /HPF Urine Squamous Epithelial Cells None seen <5 /hpf Urine Bacteria None seen None Seen /hpf Urine Mucus Few None Seen Urine Glucose 1+ H Normal mg/dL Assessment Bilateral leg weakness, gait disturbance, Trunk ataxia Right upper extremity weakness, expressive aphasia, dysarthria, dysphagia Acute stroke Plan/Recommendation Monitoring Supportive treatment Telemetry Lipitor profile UDS Carotid Doppler Echocardiogram MR head NPO IV fluid 75 mg/hr Lovenox 1 milligram/kg subQ b.i.d. Lipitor 20 mg daily Speech pathology evaluation Physical therapy More recommendation per clinical course Prognosis: Poor This medical document was created using an electronic medical record system with [employer] dictation system. Although this document has been carefully reviewed, there may still be some phonetic and typographical errors. These areas are purely typographical due to imperfections of the software programs, and do not reflect any compromise in the patient's medical care. Plan discussed with: Patient, Daughter, Other TAMIKO RUVALCABA MD Apr 25, 2025 19:52
[2025-04-25] MEDS ORDERED: LORazepam 2MG/ML-1ML VIAL IV PRN (20:45)
[2025-04-25 21:00] LABS: Triglycerides 78 mg/dL (< 150)
[2025-04-25 21:02] LABS: Cholesterol 120 mg/dL (< 200); HDL Cholesterol 50 mg/dL (40-59)
--- NOTE | 2025-04-25 21:29 | DVH ---
Carotid Duplex Date: 04/25/2025 08:55 PM Clinical History: cva Comparison: None Technique: Duplex Doppler evaluation of the extracranial carotid and vertebral arteries including col or Doppler and spectral/pulsed waveform analysis was performed. Findings: RIGHT SIDE: The peak systolic velocities are 65 cm/s in the distal CCA and 95 cm/s in the proximal ICA.The ICA/CC A ratio is less than 2. The external carotid artery is patent with peak systolic velocity of 97 cm/s proximally. There is appropriate antegrade flow in the right vertebral artery. LEFT SIDE: The peak systolic velocities are 80 cm/s in the distal CCA and 70 cm/s in the proximal ICA.. The ICA/ CCA ratio is less than 2. The external carotid artery is patent with peak systolic velocity of 58 cm/s proximally. There is appropriate antegrade flow in the left vertebral artery. IMPRESSION: 1. No hemodynamically significant stenosis noted in the right carotid system. 2. No hemodynamically significant stenosis noted in the left carotid system. 3. Reference: Radiology 2003; 229:340-346
[2025-04-25 21:35] VITALS: BP 163/86; PULSE 53; RESP 18; TEMP 98; O2SAT 99
[2025-04-25 21:40] VITALS: PULSE 64; RESP 18; O2SAT 99
[2025-04-25 21:55] LABS: Amphetamine Screen, Urine Neg (NEGATIVE); Barbiturate Scree,Urine Neg (NEGATIVE); Benzodiazephine Screen, Urine Neg (NEGATIVE); Cannabinoid Screen, Urine Neg (NEGATIVE); Cocaine Screen, Urine Neg (NEGATIVE); Opiate Scree,Urine Neg (NEGATIVE); Phencyclidine Screen, Urine Neg (NEGATIVE)
[2025-04-25] MEDS ORDERED: ENOXAPARIN SOD 100 MG/1 ML SYRINGE SC SCH (22:00)
[2025-04-25] MEDS: SODIUM CHLOR 0.9% PF (SALINE LOCK) 10ML VIAL/SYR IV SCH (22:00)
[2025-04-25] MEDS: METOPROLOL TARTRATE 25 MG TAB PO SCH (22:00)
[2025-04-25] MEDS: ATORVASTATIN 20 MG TAB PO SCH (22:00)
[2025-04-25] MEDS: SODIUM CHLORIDE 0.9% 1,000 ML IV SCH (22:33)
[2025-04-25] MEDS: ENOXAPARIN SOD 100 MG/1 ML SYRINGE SC SCH (23:01)
[2025-04-26] VITALS (7 sets, daily range): BP systolic 147–163; BP diastolic 71–91; PULSE 56–69; RESP 18; TEMP 98.1–99.2; O2SAT 98–99
[2025-04-26 06:25] LABS: Hematocrit 41.3 % (41.0-53.0); Hemoglobin 14.3 g/dL (13.5-17.5); Mean Corpuscular Hemoglobin 33.0 pg (28.0-32.0); Mean Corpuscular Volume 95.2 fL (80.0-100.0); Nucleated Red Blood Cells % 0.1 %
[2025-04-26 06:49] LABS: Alanine Aminotransferase 38 U/L (7-40); Albumin 4.0 g/dL (3.2-4.8); Alkaline Phosphatase 53 U/L (46-116); Anion Gap 11 (5-15); BUN/Creatinine Ratio 12.5 (10.0-20.0); Blood Urea Nitrogen 10 mg/dL (9-23); Calcium 9.7 mg/dL (8.7-10.4); Carbon Dioxide 24 mmol/L (20-31); Chloride 107 mmol/L (98-107); Glucose 84 mg/dL (74-106); Potassium 3.6 mmol/L (3.5-5.1); Sodium 142 mmol/L (136-145)
[2025-04-26 06:50] LABS: Bilirubin, Total 0.9 mg/dL (0.2-1.0)
[2025-04-26 06:51] LABS: Total Protein 5.7 g/dL (5.7-8.2)
--- NOTE | 2025-04-26 09:46 | DVH ---
PROCEDURE: MRI BRAIN HEAD WO CONTRAST INDICATION: cva EXAM DATE: 04/26/2025 09:00 AM COMPARISON: None TECHNIQUE: MRI of the brain without intravenous contrast. FINDINGS: Restricted diffusion in the left destiny with associated FLAIR signal abnormality consistent with an acu te/subacute infarct. There is no evidence of acute intracranial hemorrhage, extra-axial collection, mass effect, midline s hift, herniation or hydrocephalus. The ventricles, sulci and cisterns appear age appropriate. Mild changes of chronic microvascular ischemic disease. There are no signal abnormalities on the susceptibility weighted sequences. The major vascular flow voids are present. Mucous retention cyst in the left maxillary sinus. The surrounding soft tissues and osseous structur es are unremarkable. IMPRESSION: 1. Acute/ subacute left pontine infarct. Clinical correlation and continued follow-up is recommended . 2. Mild changes of chronic microvascular ischemic disease. Mild paranasal sinus disease. Critical Result: Stroke Alert Findings conveyed to the referring physician by the [facility] Radiology is support analyst at 04/26/2025 09:43 A M, and acknowledged receipt and understanding of the findings. HS:Y
--- NOTE | 2025-04-26 09:54 | ECG ---
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
[2025-04-26] MEDS: ATORVASTATIN 20 MG TAB PO SCH (21:29)
--- NOTE | 2025-04-26 23:00 | DVHPN2 ---
Progress Note - Dictate Date Seen: Apr 26, 2025 Medical Necessity Reason Pt with a Central, PICC or Fol: No Subjective Mr. Romero is a 65 years old not sure left-handed gentleman with a history of hypertension, diabetes, atrial fibrillation, he came to the [facility] on 04/25/2025 with a chief complaint of general weakness. I have seen examined the patient, talked to his nurse, he is doing fine, no new complaints UDS, 04/25/2025: Negative Urinalysis, 04/25/2025: WBC: 46, urine leukocyte esterase: Negative CBC, 04/25/2025: Unremarkable BMP 04/25/2025: Unremarkable HGB A1c, 03/19/2025: 6.3 TBI/AST/ALT/AP, 03/20/2025: 1/9//110/72 TG/HDL/LDL/HDL, 04/2125: 78/120/46/50 Carotid Doppler, 04/25/2025: 1. No hemodynamically significant stenosis noted in the right carotid system. 2. No hemodynamically significant stenosis noted in the left carotid system. CT head, 04/25/2025: 1. Mild chronic ischemic changes without evidence of acute intracranial process. 2. Bilateral maxillary sinus disease MRI head, 04/26/2025: 1. Acute/ subacute left pontine infarct. Clinical correlation and continued follow-up is recommended. 2. Mild changes of chronic microvascular ischemic disease. Mild paranasal sinus disease. vital signs Vital Sign Date Time Temp Pulse Resp B/P (MAP) Pulse Ox O2 Delivery O2 Flow Rate FiO2 04/26/25 21:40 51 158/86 04/26/25 21:00 98.2 18 98 98.2 04/26/25 08:00 Room Air* 0 21 Total Intake and Output 04/25/25 04/25/25 04/26/25 15:00 23:00 07:00 Intake Total 0 ml Output Total 700 ml Balance -700 ml medications Current Medications Medications Dose Ordered Sig/Karthikeyan Route Start Time Stop Time Status Last Admin Dose Admin Metoprolol Tartrate 25 mg BID PO 04/25/25 22:00 04/26/25 11:03 25 MG Hydralazine HCl 10 mg Q6HP PRN IV 04/25/25 15:30 Diagnostic Test (Pha) 1 strip ACHS 04/25/25 17:00 04/26/25 21:36 1 STRIP Insulin Human Regular HS SC 04/25/25 22:00 Insulin Human Regular AC SC 04/25/25 17:00 04/25/25 17:29 2 UNITS Dextrose 50 ml UD PRN IV 04/25/25 15:30 Sodium Chloride 10 ml Q8HR IV 04/25/25 22:00 04/26/25 21:30 10 ML Acetaminophen/ Hydrocodone Bitart 1 tab Q4HP PRN PO 04/25/25 15:30 Ondansetron HCl 4 mg Q4HP PRN IV 04/25/25 15:30 Docusate Sodium 100 mg BIDPRN PRN PO 04/25/25 15:30 Acetaminophen 650 mg Q6HP PRN PO 04/25/25 15:30 Nitroglycerin 0.4 mg Q5MINP PRN SL 04/25/25 17:45 Morphine Sulfate 2 mg Q30M PRN IV 04/25/25 17:45 Lorazepam 1 mg ONCE PRN IV 04/25/25 20:45 Sodium Chloride 1,000 ml @ 60 mls/hr [id number] IV 04/25/25 20:45 04/26/25 13:25 60 MLS/HR Enoxaparin Sodium 100 mg Q12HR SC 04/25/25 22:00 04/26/25 21:30 100 MG Enoxaparin Sodium 100 mg Q12HR SC 04/25/25 22:00 UNV Atorvastatin Calcium 40 mg HS PO 04/26/25 22:00 04/26/25 21:29 40 MG Aspirin 81 mg DAILY PO 04/27/25 10:00 objective General: the patient is well developed and nourished. No acute distress. MENTAL STATUS: Awake and alert. Oriented x4 SPEECH, LANGUAGE, HIGHER CORTICAL FUNCTION: Mild expressive aphasia, and [id number] dysarthria CRANIAL NERVES: Pupils are equal, round and reactive. EOMs full and conjugate. No nystagmus. Facial sensation intact in all three divisions bilaterally. Mandibular strength intact. Facial muscles symmetrical and strength intact. SENSATION: Sensation to touch and pinprick is normal. MOTOR: Normal tone in the upper and lower extremity. Normal muscle bulk. No fasciculations. No abnormal movements or posturing. Muscle strength of the major groups in the extremities is 5/5 except for 4/5 in the right arm with right upper extremity drift REFLEXES: Deep tendon reflexes normal and symmetrical. No pathological reflexes. CEREBELLAR/COORDINATION: Finger to nose is normal bilaterally. GAIT/STATION: deferred. laboratory and microbiology Laboratory Tests 04/26/25 04:00 Test 04/26/25 04:00 Range/Units Serum Glucose 84 74-106 mg/dL Problem List Bilateral leg weakness, gait disturbance, Trunk ataxia Right upper extremity weakness, expressive aphasia, dysarthria, dysphagia Acute pontine stroke Assessment/Plan Monitoring Supportive treatment Telemetry Follow-up Lipitor profile Echocardiogram Clear liquid diet IV fluid 75 mg/hr Lovenox 1 milligram/kg subQ b.i.d. D/C Lipitor 20 mg daily Speech pathology evaluation Physical therapy More recommendation per clinical course This medical document was created using an electronic medical record system with [employer] dictation system. Although this document has been carefully reviewed, there may still be some phonetic and typographical errors. These areas are purely typographical due to imperfections of the software programs, and do not reflect any compromise in the patient's medical care. Prognosis poor Plan discussed with: Patient, Other TAMIKO RUVALCABA MD Apr 26, 2025 23:00
[2025-04-26 23:23] LABS: Triglycerides 77 mg/dL (< 150)
[2025-04-26 23:25] LABS: Cholesterol 105 mg/dL (< 200); HDL Cholesterol 44 mg/dL (40-59)
[2025-04-27] VITALS (9 sets, daily range): BP systolic 119–152; BP diastolic 63–90; PULSE 50–82; RESP 16–20; TEMP 96.6–99.4; O2SAT 92–99
--- NOTE | 2025-04-27 09:35 | DVHSR ---
APPROVED REPORT EXAM: Two-dimensional and M-mode echocardiogram with Doppler and color Doppler. Blood Pressure: 156/72 mmHg INDICATION CVA RISK FACTORS Height: 71, Weight: 218 DIMENSIONS LVDd5.4 (3.8-5.7cm)LA (2D)4.3 (1.9-4.0cm)Aortic Root4.4 (2.0-3.7cm) LVDs3.3 (2.5-4.0cm)LA (MM) (1.9-4.0cm)Aortic Cusp Exc2.1 (1.5-2.0cm) EF (%) 69.0 (55-70%)Rt. Atrium4.1 (1.9-4.0cm)Asc. Aorta cm IVSd1.2 (0.7-1.1cm)RV (D) (1.8-2.4cm) PWd1.3 (0.7-1.1cm) Mitral Valve MitralMitral Stenosis E wave0.68m/sMV Mean GR.mmHg A wave0.87m/sMV Peak GR.mmHg E/A ratio0.82D MVAcm2 DECEL [id number] 1/2 Ehna10hu IVRTmsDop MVA3.00cm2 Aortic Valve Aortic ValveAortic Stenosis V11.16m/Lewis Mean GR.3mmHg V21.39m/Lewis Peak GR.8mmHg LVOT Diameter2.1 (1.8-2.4cm)Doppler AVA2.89cm2 Pulmonic Valve V21.01m/s Conclusion LV EF IS 69% AND IS NORMAL SLIGHTLY DILATED RV,RA AND LA NORMAL VALVES NO EFFUSION
[2025-04-27] MEDS: hydrALAZINE HCL 20 MG/ML VL IV PRN (11:29)
--- NOTE | 2025-04-27 14:55 | DVHPN2 ---
Reviewed: Care Plan, H&P Changes from previous H/P or p: No Changes General: Per HPI Eyes: No Pain, No Vision change, No Conjunctivae inflammation, No Eyelid inflammation, No Other, No Redness ENT: No Ear pain, No Ear discharge, No Nose pain, No Nose discharge, No Nose congestion, No Mouth pain, No Mouth swelling, No Throat pain, No Throat swelling, No Other Cardiovascular: No Chest Pain, No Palpitations, No Orthopnea, No Paroxysmal Noc. Dyspnea, No Edema, No Lt Headedness, No Other Respiratory: No Cough, No Dry, No Shortness of breath, No SOB with excertion, No Wheezing, No Hemoptysis, No Pleuritic Pain, No Sputum, No Other Gastrointestinal: No Nausea, No Vomiting, No Abdominal Pain, No Diarrhea, No Constipation, No Melena, No Hematochezia, No Other Genitourinary: No Dysuria, No Frequency, No Incontinence, No Hematuria, No Retention, No Other Musculoskeletal: other (Bilateral leg swelling); No neck pain, No shoulder pain, No arm pain, No back pain, No hand pain, No leg pain, No foot pain Skin: No Rash, No Lesions, No Jaundice, No Bruising, No Other Objective Vitals Vital Signs Date Time Temp Pulse Resp B/P (MAP) Pulse Ox O2 Delivery O2 Flow Rate FiO2 04/27/25 13:00 99.4 57 20 151/81 (104) 98 99.4 04/27/25 08:08 Room Air* 0 21 Intake/Output Intake and Output 04/27/25 07:00 Intake Total 1650 ml Output Total 600 ml Balance 1050 ml Intake Oral 300 ml IV Total 1350 ml Output Urine Total 600 ml # Voids 3 # Bowel Movements 1 General Appearance: Alert, Oriented X3, Cooperative Cardiovascular: Regular rate, Normal S1, Normal S2 Medications Current Medications Medications Dose Ordered Sig/Karthikeyan Route Start Time Stop Time Status Last Admin Dose Admin Metoprolol Tartrate 25 mg BID PO 04/25/25 22:00 04/27/25 09:26 25 MG Hydralazine HCl 10 mg Q6HP PRN IV 04/25/25 15:30 04/27/25 11:29 10 MG Diagnostic Test (Pha) 1 strip ACHS 04/25/25 17:00 04/27/25 11:07 1 STRIP Insulin Human Regular HS SC 04/25/25 22:00 Insulin Human Regular AC SC 04/25/25 17:00 04/27/25 11:07 3 UNITS Dextrose 50 ml UD PRN IV 04/25/25 15:30 Sodium Chloride 10 ml Q8HR IV 04/25/25 22:00 04/27/25 14:30 10 ML Acetaminophen/ Hydrocodone Bitart 1 tab Q4HP PRN PO 04/25/25 15:30 Ondansetron HCl 4 mg Q4HP PRN IV 04/25/25 15:30 Docusate Sodium 100 mg BIDPRN PRN PO 04/25/25 15:30 Acetaminophen 650 mg Q6HP PRN PO 04/25/25 15:30 Nitroglycerin 0.4 mg Q5MINP PRN SL 04/25/25 17:45 Morphine Sulfate 2 mg Q30M PRN IV 04/25/25 17:45 Lorazepam 1 mg ONCE PRN IV 04/25/25 20:45 Sodium Chloride 1,000 ml @ 60 mls/hr [id number] IV 04/25/25 20:45 04/27/25 05:36 60 MLS/HR Enoxaparin Sodium 100 mg Q12HR SC 04/25/25 22:00 04/27/25 09:25 100 MG Enoxaparin Sodium 100 mg Q12HR SC 04/25/25 22:00 UNV Aspirin 81 mg DAILY PO 04/27/25 10:00 04/27/25 09:27 81 MG Laboratory Results Laboratory Tests 04/26/25 04:00 Urinalysis Test 04/25/25 12:03 Urine Color Light-orange (Yellow) Urine Clarity Ex.turbid (Clear) Urine pH 5.5 (5.0-9.0) Urine Specific [place] 1.030 (1.001-1.035) Urine Protein Trace (Negative) H Urine Ketones 1+ (Negative) H Urine Blood Negative /uL (Negative) Urine Nitrite Negative (Negative) Urine Bilirubin Negative (Negative) Urine Urobilinogen 2 mg/dL (Negative) H Urine Leukocyte Esterase Negative /uL (Negative) Urine RBC 3 /hpf (0 - 3) Urine Microscopic WBC 46 /HPF (0-3) H Urine Squamous Epithelial Cells None seen /hpf (<5) Urine Bacteria None seen /hpf (None Seen) Urine Mucus Few (None Seen) Urine Glucose 1+ mg/dL (Normal) H Labs and/or images reviewed: Labs reviewed by me, Image(s) reviewed by me Assessment/Plan Assessment/Plan Bilateral leg weakness, gait disturbance, Trunk ataxia Right upper extremity weakness, expressive aphasia, dysarthria, dysphagia Acute pontine stroke difficulty walking 04/26/[address] consult to medical social worker Plan discussed with: Patient My Orders Orders - JANNIE IZAGUIRRE DO Procedure Category Date Status Time Aspirin Tablet PHA 04/27/25 In Process 10:00 Date of Service: Apr 26, 2025 Billing Provider: JANNIE IZAGUIRRE DO Common Visit Codes: [id number] INP/OBS CARE(HIGH) JANNIE IZAGUIRRE DO Apr 27, 2025 14:55
--- NOTE | 2025-04-27 14:56 | DVHPN2 ---
Reviewed: Care Plan, H&P Changes from previous H/P or p: No Changes General: Per HPI Eyes: No Pain, No Vision change, No Conjunctivae inflammation, No Eyelid inflammation, No Other, No Redness ENT: No Ear pain, No Ear discharge, No Nose pain, No Nose discharge, No Nose congestion, No Mouth pain, No Mouth swelling, No Throat pain, No Throat swelling, No Other Cardiovascular: No Chest Pain, No Palpitations, No Orthopnea, No Paroxysmal Noc. Dyspnea, No Edema, No Lt Headedness, No Other Respiratory: No Cough, No Dry, No Shortness of breath, No SOB with excertion, No Wheezing, No Hemoptysis, No Pleuritic Pain, No Sputum, No Other Gastrointestinal: No Nausea, No Vomiting, No Abdominal Pain, No Diarrhea, No Constipation, No Melena, No Hematochezia, No Other Genitourinary: No Dysuria, No Frequency, No Incontinence, No Hematuria, No Retention, No Other Musculoskeletal: other (Bilateral leg swelling); No neck pain, No shoulder pain, No arm pain, No back pain, No hand pain, No leg pain, No foot pain Skin: No Rash, No Lesions, No Jaundice, No Bruising, No Other Objective Vitals Vital Signs Date Time Temp Pulse Resp B/P (MAP) Pulse Ox O2 Delivery O2 Flow Rate FiO2 04/27/25 13:00 99.4 57 20 151/81 (104) 98 99.4 04/27/25 08:08 Room Air* 0 21 Intake/Output Intake and Output 04/27/25 07:00 Intake Total 1650 ml Output Total 600 ml Balance 1050 ml Intake Oral 300 ml IV Total 1350 ml Output Urine Total 600 ml # Voids 3 # Bowel Movements 1 General Appearance: Alert, Oriented X3, Cooperative Cardiovascular: Regular rate, Normal S1, Normal S2 Medications Current Medications Medications Dose Ordered Sig/Karthikeyan Route Start Time Stop Time Status Last Admin Dose Admin Metoprolol Tartrate 25 mg BID PO 04/25/25 22:00 04/27/25 09:26 25 MG Hydralazine HCl 10 mg Q6HP PRN IV 04/25/25 15:30 04/27/25 11:29 10 MG Diagnostic Test (Pha) 1 strip ACHS 04/25/25 17:00 04/27/25 11:07 1 STRIP Insulin Human Regular HS SC 04/25/25 22:00 Insulin Human Regular AC SC 04/25/25 17:00 04/27/25 11:07 3 UNITS Dextrose 50 ml UD PRN IV 04/25/25 15:30 Sodium Chloride 10 ml Q8HR IV 04/25/25 22:00 04/27/25 14:30 10 ML Acetaminophen/ Hydrocodone Bitart 1 tab Q4HP PRN PO 04/25/25 15:30 Ondansetron HCl 4 mg Q4HP PRN IV 04/25/25 15:30 Docusate Sodium 100 mg BIDPRN PRN PO 04/25/25 15:30 Acetaminophen 650 mg Q6HP PRN PO 04/25/25 15:30 Nitroglycerin 0.4 mg Q5MINP PRN SL 04/25/25 17:45 Morphine Sulfate 2 mg Q30M PRN IV 04/25/25 17:45 Lorazepam 1 mg ONCE PRN IV 04/25/25 20:45 Sodium Chloride 1,000 ml @ 60 mls/hr [id number] IV 04/25/25 20:45 04/27/25 05:36 60 MLS/HR Enoxaparin Sodium 100 mg Q12HR SC 04/25/25 22:00 04/27/25 09:25 100 MG Enoxaparin Sodium 100 mg Q12HR SC 04/25/25 22:00 UNV Aspirin 81 mg DAILY PO 04/27/25 10:00 04/27/25 09:27 81 MG Laboratory Results Laboratory Tests 04/26/25 04:00 Urinalysis Test 04/25/25 12:03 Urine Color Light-orange (Yellow) Urine Clarity Ex.turbid (Clear) Urine pH 5.5 (5.0-9.0) Urine Specific [place] 1.030 (1.001-1.035) Urine Protein Trace (Negative) H Urine Ketones 1+ (Negative) H Urine Blood Negative /uL (Negative) Urine Nitrite Negative (Negative) Urine Bilirubin Negative (Negative) Urine Urobilinogen 2 mg/dL (Negative) H Urine Leukocyte Esterase Negative /uL (Negative) Urine RBC 3 /hpf (0 - 3) Urine Microscopic WBC 46 /HPF (0-3) H Urine Squamous Epithelial Cells None seen /hpf (<5) Urine Bacteria None seen /hpf (None Seen) Urine Mucus Few (None Seen) Urine Glucose 1+ mg/dL (Normal) H Labs and/or images reviewed: Labs reviewed by me, Image(s) reviewed by me Assessment/Plan Assessment/Plan Bilateral leg weakness, gait disturbance, Trunk ataxia Right upper extremity weakness, expressive aphasia, dysarthria, dysphagia Acute pontine stroke difficulty walking 04/26/[address] consult to social services manager dsicussed with daughter at bedside 04/27/25 pt is still very weak, unable to walk by himself ordered echo consult cardio to rule out cardiac thrombus discussed with pt, pt's sister and pt's daughter at bedside Plan discussed with: Patient My Orders Orders - JANNIE IZAGUIRRE DO Procedure Category Date Status Time Aspirin Tablet PHA 04/27/25 In Process 10:00 Date of Service: Apr 27, 2025 Billing Provider: JANNIE IZAGUIRRE DO Common Visit Codes: [id number] INP/OBS CARE(HIGH) JANNIE IZAGUIRRE DO Apr 27, 2025 14:56
--- NOTE | 2025-04-27 23:32 | DVHPN2 ---
Progress Note - Dictate Date Seen: Apr 27, 2025 Medical Necessity Reason Pt with a Central, PICC or Fol: No Subjective Mr. Romero is a 65 years old not sure left-handed gentleman with a history of hypertension, diabetes, atrial fibrillation, he came to the [facility] on 04/25/2025 with a chief complaint of general weakness. I have seen examined the patient, talked to his nurse, he is doing fine, speech is better UDS, 04/25/2025: Negative Urinalysis, 04/25/2025: WBC: 46, urine leukocyte esterase: Negative CBC, 04/25/2025: Unremarkable BMP 04/25/2025: Unremarkable HGB A1c, 03/19/2025: 6.3 TBI/AST/ALT/AP, 03/20/2025: 1/9//110/72 TG/HDL/LDL/HDL, 04/25/25: 78/120/46/50, 04/26/2025: 77/105/38/44 Echocardiogram, 04/24/2025: LV EF IS 69% AND IS NORMAL SLIGHTLY DILATED RV,RA AND LA NORMAL VALVES NO EFFUSION Carotid Doppler, 04/25/2025: 1. No hemodynamically significant stenosis noted in the right carotid system. 2. No hemodynamically significant stenosis noted in the left carotid system. CT head, 04/25/2025: 1. Mild chronic ischemic changes without evidence of acute intracranial process. 2. Bilateral maxillary sinus disease MRI head, 04/26/2025: 1. Acute/ subacute left pontine infarct. Clinical correlation and continued follow-up is recommended. 2. Mild changes of chronic microvascular ischemic disease. Mild paranasal sinus disease. vital signs Vital Sign Date Time Temp Pulse Resp B/P (MAP) Pulse Ox O2 Delivery O2 Flow Rate FiO2 04/27/25 22:19 59 146/90 04/27/25 21:00 98.2 17 98 98.2 04/27/25 20:00 Room Air* 0 21 Total Intake and Output 04/26/25 04/26/25 04/27/25 15:00 23:00 07:00 Intake Total 400 ml 0 ml 1250 ml Output Total 600 ml Balance 400 ml -600 ml 1250 ml medications Current Medications Medications Dose Ordered Sig/Karthikeyan Route Start Time Stop Time Status Last Admin Dose Admin Metoprolol Tartrate 25 mg BID PO 04/25/25:00 04/27/25 21:19 25 MG Hydralazine HCl 10 mg Q6HP PRN IV 04/25/25 15:30 04/27/25 11:29 10 MG Diagnostic Test (Pha) 1 strip ACHS 04/25/25 17:00 04/27/25 21:19 1 STRIP Insulin Human Regular HS SC 04/25/25 22:00 Insulin Human Regular AC SC 04/25/25 17:00 04/27/25 16:56 2 UNITS Dextrose 50 ml UD PRN IV 04/25/25 15:30 Sodium Chloride 10 ml Q8HR IV 04/25/25 22:00 04/27/25 21:19 10 ML Acetaminophen/ Hydrocodone Bitart 1 tab Q4HP PRN PO 04/25/25 15:30 Ondansetron HCl 4 mg Q4HP PRN IV 04/25/25 15:30 Docusate Sodium 100 mg BIDPRN PRN PO 04/25/25 15:30 Acetaminophen 650 mg Q6HP PRN PO 04/25/25 15:30 Nitroglycerin 0.4 mg Q5MINP PRN SL 04/25/25 17:45 Morphine Sulfate 2 mg Q30M PRN IV 04/25/25 17:45 Lorazepam 1 mg ONCE PRN IV 04/25/25 20:45 Sodium Chloride 1,000 ml @ 60 mls/hr [id number] IV 04/25/25 20:45 04/27/25 22:51 60 MLS/HR Enoxaparin Sodium 100 mg Q12HR SC 04/25/25 22:00 04/27/25 21:18 100 MG Enoxaparin Sodium 100 mg Q12HR SC 04/25/25 22:00 UNV Aspirin 81 mg DAILY PO 04/27/25 10:00 04/27/25 09:27 81 MG objective General: the patient is well developed and nourished. No acute distress. MENTAL STATUS: Awake and alert. Oriented x4 SPEECH, LANGUAGE, HIGHER CORTICAL FUNCTION: Mild expressive aphasia, and [id number] dysarthria CRANIAL NERVES: Pupils are equal, round and reactive. EOMs full and conjugate. No nystagmus. Facial sensation intact in all three divisions bilaterally. Mandibular strength intact. Facial muscles symmetrical and strength intact. SENSATION: Sensation to touch and pinprick is normal. MOTOR: Normal tone in the upper and lower extremity. Normal muscle bulk. No fasciculations. No abnormal movements or posturing. Muscle strength of the major groups in the extremities is 5/5 except for 4/5 in the right arm with right upper extremity drift REFLEXES: Deep tendon reflexes normal and symmetrical. No pathological reflexes. CEREBELLAR/COORDINATION: Finger to nose is normal bilaterally. GAIT/STATION: deferred. laboratory and microbiology Laboratory Tests 04/26/25 04:00 Test 04/26/25 04:00 Range/Units Serum Glucose 84 74-106 mg/dL Problem List Bilateral leg weakness, gait disturbance, Trunk ataxia Right upper extremity weakness, expressive aphasia, dysarthria, dysphagia Acute pontine stroke Assessment/Plan Monitoring Supportive treatment Telemetry Follow-up Lipitor profile Clear liquid diet ILovenox 1 milligram/kg subQ b.i.d. Speech pathology on case Physical therapy More recommendation per clinical course This medical document was created using an electronic medical record system with [employer] computerized dictation system. Although this document has been carefully reviewed, there may still be some phonetic and typographical errors. These areas are purely typographical due to imperfections of the software programs, and do not reflect any compromise in the patient's medical care. Prognosis poor Plan discussed with: Other TAMIKO RUVALCABA MD Apr 27, 2025 23:32
[2025-04-28] VITALS (8 sets, daily range): BP systolic 135–174; BP diastolic 75–91; PULSE 51–75; RESP 17–18; TEMP 97.9–99.3; O2SAT 97–99
--- NOTE | 2025-04-28 17:31 | DVHINCON2 ---
Date Seen: Apr 28, 2025 Referring Physician MD Whit Reason for Consultation Rule out cardioembolic source History of Present Illness This is a 65-year-old male patient who presents to the emergency room with chief complaint of slurred speech and right-sided weakness. Imaging has revealed an acute/subacute left pontine infarct. Cardiology has been consulted at this time to rule out cardioembolic source of stroke. Initial twelve lead electrocardiogram reveals normal sinus rhythm without any ST segment changes. Significant past medical history includes paroxysmal atrial fibrillation (on Eliquis), hypertension, dyslipidemia, and type 2 diabetes mellitus. The patient reports he follows up with [facility] in the outpatient setting. Past Medical History Past medical history reviewed. No other significant than mentioned above. Past Surgical History Denies all previous surgeries Family History: FH: emphysema G8 MOTHER FH: liver cancer G8 FATHER Family History Family history reviewed. Social History Denies the use of tobacco, alcohol or illicit drugs. Allergies: Coded Allergies: NO KNOWN ALLERGIES (Unverified , 10/06/24) Home Meds Active Scripts Diltiazem HCl Coated Beads (Cardizem Cd) 120 Mg Cap, 120 MG PO DAILY for 30 Day s, #30 CAP 2 Refills Prov:BELLO NAVA NAIL PULLER 12/08/24 Reported Medications Metoprolol Succinate (Metoprolol Succinate Er) 50 Mg Tab, 1 TAB PO DAILY, #30 TAB 5 Refills 03/20/25 Atorvastatin Calcium (Lipitor) 20 Mg Tab, 20 MG PO HS 12/07/24 Apixaban Base (ELIQUIS) 5 Mg Tab, 1 TAB PO BID 12/07/24 Metformin Hydrochloride (Metformin Hcl) 1,000 Mg Tab, 1 TAB PO BID 12/07/24 Home Meds Home medications reviewed. Review of Systems Constitutional: No symptom reported Ears, Nose, & Throat: No symptom reported Eyes: No symptom reported Neurological: Slurred speech Pulmonary/Respiratory: No symptoms reported Cardiovascular: No symptom reported Gastrointestinal: No symptom reported Genitourinary: No symptom reported Musculoskeletal: Right-sided weakness Skin: No symptom reported Psychiatric: No symptom reported Endocrine: No symptom reported Hematologic/Lymphatic: No symptom reported Vital Signs Vital Signs Date Time Temp Pulse Resp B/P (MAP) Pulse Ox O2 Delivery O2 Flow Rate FiO2 04/28/25 17:00 99.3 70 18 143/87 (105) 98 99.3 04/28/25 08:00 Room Air* 0 21 Physical Exam General Appearance: Cooperative. Well-developed. Well-nourished. No acute distress. Pulmonary/Respiratory: Clear, bilateral breaths sounds. Cardiovascular/Chest: Regular rate and rhythm. Peripheral Pulses: 2+ Radial (R). 2+ Radial (L). 2+ Pedal (R). 2+ Pedal (L) Abdominal Exam: Normal bowel sounds. Ankle Exam: Negative ankle edema Lower extremities: Negative lower extremity edema Neuro/Mental Status: A/OX4, coherent. Slight right-sided weakness Thoughts/Psych: Normal thought pattern. Appropriate mood and affect. Good judgment and insight. Appearance: No acute distress. Skin Exam: Normal inspection. Normal color. Warm and dry. Labs/Diagnostic Data Labs Test 04/28/25 16:26 04/26/25 06:16 04/26/25 04:00 04/25/25 13:57 Range/Units POC Glucose 166 H 70-106 mg/dl Triglycerides Level 77 < 150 mg/dL Cholesterol Level 105 < 200 mg/dL LDL Cholesterol 38 < 100 mg/dL HDL Cholesterol 44 40-59 mg/dL White Blood Count 6.4 4.4-10.8 10^3/uL Red Blood Count 4.33 L 4.5-5.90 10^6/uL Hemoglobin 14.3 13.5-17.5 g/dL Hematocrit 41.3 41.0-53.0 % Mean Corpuscular Volume 95.2 80.0-100.0 fL Mean Corpuscular Hemoglobin 33.0 H 28.0-32.0 pg Mean Corpuscular Hemoglobin Concent 34.7 32.0-36.0 g/dL Red Cell Distribution Width 14.3 11.8-14.3 % Platelet Count 124 L 140-450 10^3/uL Mean Platelet Volume 9.4 6.9-10.8 fL Neutrophils (%) (Auto) 57.9 37.0-80.0 % Lymphocytes (%) (Auto) 27.6 10.0-50.0 % Monocytes (%) (Auto) 11.9 0.0-12.0 % Eosinophils (%) (Auto) 2.0 0.0-7.0 % Basophils (%) (Auto) 0.6 0.0-2.0 % Neutrophils # (Auto) 3.7 1.6-8.6 10 ^3/uL Lymphocytes # (Auto) 1.8 0.4-5.4 10 ^3/uL Monocytes # (Auto) 0.8 0-1.3 10 ^3/uL Eosinophils # (Auto) 0.1 0-0.8 10 ^3/uL Basophils # (Auto) 0 0-0.2 10 ^3/uL Nucleated Red Blood Cells 0.1 % Sodium Level 142 136-145 mmol/L Potassium Level 3.6 3.5-5.1 mmol/L Chloride Level 107 98-107 mmol/L Carbon Dioxide Level 24 20-31 mmol/L Anion Gap 11 5-15 Blood Urea Nitrogen 10 9-23 mg/dL Creatinine 0.80 0.700-1.30 mg/dL Glomerular Filtration Rate Calc 97 >90 mL/min BUN/Creatinine Ratio 12.5 10.0-20.0 Serum Glucose 84 74-106 mg/dL Calcium Level 9.7 8.7-10.4 mg/dL Total Bilirubin 0.9 0.2-1.0 mg/dL Aspartate Amino Transferase (AST) 29 13-40 U/L Alanine Aminotransferase (ALT) 38 7-40 U/L Alkaline Phosphatase 53 46-116 U/L Total Protein 5.7 5.7-8.2 g/dL Albumin 4.0 3.2-4.8 g/dL Troponin I High Sensitivity 3 L </=54 ng/L Test 04/25/25 12:48 04/25/25 12:03 Range/Units B-Type Natriuretic Peptide 32.96 0-100 pg/mL Urine Color Light-orange Yellow Urine Clarity Ex.turbid Clear Urine pH 5.5 5.0-9.0 Urine Specific [place] 1.030 1.001-1.035 Urine Protein Trace H Negative Urine Ketones 1+ H Negative Urine Blood Negative Negative /uL Urine Nitrite Negative Negative Urine Bilirubin Negative Negative Urine Urobilinogen 2 H Negative mg/dL Urine Leukocyte Esterase Negative Negative /uL Urine RBC 3 0 - 3 /hpf Urine Microscopic WBC 46 H 0-3 /HPF Urine Squamous Epithelial Cells None seen <5 /hpf Urine Bacteria None seen None Seen /hpf Urine Mucus Few None Seen Urine Glucose 1+ H Normal mg/dL Urine Opiates Screen Neg NEGATIVE Urine Fentanyl Screen Neg NEGATIVE Urine Barbiturates Screen Neg NEGATIVE Urine Phencyclidine Screen Neg NEGATIVE Urine Amphetamines Screen Neg NEGATIVE Urine Benzodiazepines Screen Neg NEGATIVE Urine Cocaine Screen Neg NEGATIVE Urine Cannabinoids Screen Neg NEGATIVE Assessment Acute left pontine infarct, rule out cardioembolic source Paroxysmal atrial fibrillation, stage 3A (on Eliquis) Hypertension Dyslipidemia Type 2 diabetes mellitus Plan/Recommendation We will continue with the following plan/recommendations (Dr. Bae): Case discussed with . The patient underwent a transthoracic echocardiogram which revealed EF of 69% with normal valves. Given that the patient had an acute infarct, the patient was offered a transesophageal echocardiogram to rule out cardioembolic source. Patient is agreeable to undergo procedure. We will schedule the patient at soonest availability on 04/29/2025. [id number] VASc score: 5 points. Continue with therapeutic Lovenox while inpatient. Continue single antiplatelet therapy and lipid-lowering agent. Bilateral carotid ultrasound shows no hemodynamically significant stenosis in either carotid system. Close cardiac surveillance. Notify cardiology team immediately for any ECG changes. Thank you for allowing us to care for this patient. Please call with any questions or concerns. Critical care time spent: 44 minutes This medical document was created using an electronic medical record system with voice recognition software and computerized dictation system. Although this document has been carefully reviewed, there might still be some phonetic and typographical errors. Occasional wrong-word or ``sound-alike substitutions may have occurred due to the inherent limitations of voice recognition software. These areas are purely typographical due to imperfections of the software programs and do not reflect any compromise in the patient's medical care. Please read the chart carefully and recognize, using context, where these substitutions have occurred. Plan discussed with: Patient, Daughter NYHA Physical activity limitations: NA Date of Service: Apr 28, 2025 Billing Provider: SONI HOLGUIN Cardiology Common Codes: [id number] INP/OBS CARE (High) Cardiology Consultation Codes: [id number] CONSULT <45MIN SONI HOLGUIN Apr 28, 2025 17:31
[2025-04-28] MEDS ORDERED: ZOLPIDEM TARTRATE 5 MG TAB PO PRN (20:15)
[2025-04-28] MEDS: ATORVASTATIN 20 MG TAB PO SCH (21:31)
--- NOTE | 2025-04-28 21:37 | DVHPN2 ---
Progress Note - Dictate Date Seen: Apr 28, 2025 Medical Necessity Reason Pt with a Central, PICC or Fol: No Subjective Mr. Romero is a 65 years old not sure left-handed gentleman with a history of hypertension, diabetes, atrial fibrillation, he came to the [facility] on 04/25/2025 with a chief complaint of general weakness. I have seen examined the patient, talked to his nurse, he is doing fine, speech is better, but still 1st slurry, he walked on the floor today Colonoscopy in the morning UDS, 04/25/2025: Negative Urinalysis, 04/25/2025: WBC: 46, urine leukocyte esterase: Negative CBC, 04/25/2025: Unremarkable BMP 04/25/2025: Unremarkable HGB A1c, 03/19/2025: 6.3 TBI/AST/ALT/AP, 03/20/2025: 1/9//110/72 TG/HDL/LDL/HDL, 04/25/25: 78/120/46/50, 04/26/2025: 77/105/38/44 Echocardiogram, 04/24/2025: LV EF IS 69% AND IS NORMAL SLIGHTLY DILATED RV,RA AND LA NORMAL VALVES NO EFFUSION Carotid Doppler, 04/25/2025: 1. No hemodynamically significant stenosis noted in the right carotid system. 2. No hemodynamically significant stenosis noted in the left carotid system. CT head, 04/25/2025: 1. Mild chronic ischemic changes without evidence of acute intracranial process. 2. Bilateral maxillary sinus disease MRI head, 04/26/2025: 1. Acute/ subacute left pontine infarct. Clinical correlation and continued follow-up is recommended. 2. Mild changes of chronic microvascular ischemic disease. Mild paranasal sinus disease. vital signs Vital Sign Date Time Temp Pulse Resp B/P (MAP) Pulse Ox O2 Delivery O2 Flow Rate FiO2 04/28/25 21:00 97.9 63 17 153/88 (109) 97 97.9 04/28/25 08:00 Room Air* 0 21 Total Intake and Output 04/27/25 04/27/25 04/28/25 15:00 23:00 07:00 Intake Total 1560 ml 675 ml Output Total 1450 ml 400 ml Balance 110 ml 275 ml medications Current Medications Medications Dose Ordered Sig/Karthikeyan Route Start Time Stop Time Status Last Admin Dose Admin Metoprolol Tartrate 25 mg BID PO 04/25/25 22:00 04/28/25 09:24 25 MG Hydralazine HCl 10 mg Q6HP PRN IV 04/25/25 15:30 04/28/25 08:09 10 MG Diagnostic Test (Pha) 1 strip ACHS 04/25/25 17:00 04/28/25 21:21 1 STRIP Insulin Human Regular HS SC 04/25/25 22:00 04/28/25 21:29 3 UNITS Insulin Human Regular AC SC 04/25/25 17:00 04/28/25 16:57 3 UNITS Dextrose 50 ml UD PRN IV 04/25/25 15:30 Sodium Chloride 10 ml Q8HR IV 04/25/25 22:00 04/28/25 14:23 10 ML Acetaminophen/ Hydrocodone Bitart 1 tab Q4HP PRN PO 04/25/25 15:30 Ondansetron HCl 4 mg Q4HP PRN IV 04/25/25 15:30 Docusate Sodium 100 mg BIDPRN PRN PO 04/25/25 15:30 Acetaminophen 650 mg Q6HP PRN PO 04/25/25 15:30 Nitroglycerin 0.4 mg Q5MINP PRN SL 04/25/25 17:45 Morphine Sulfate 2 mg Q30M PRN IV 04/25/25 17:45 Lorazepam 1 mg ONCE PRN IV 04/25/25 20:45 Enoxaparin Sodium 100 mg Q12HR SC 04/25/25 22:00 04/28/25 09:23 100 MG Enoxaparin Sodium 100 mg Q12HR SC 04/25/25 22:00 UNV Aspirin 81 mg DAILY PO 04/27/25 10:00 04/28/25 09:23 81 MG Atorvastatin Calcium 40 mg HS PO 04/28/25 22:00 Zolpidem Tartrate 5 mg HSPRN PRN PO 04/28/25 20:15 objective General: the patient is well developed and nourished. No acute distress. MENTAL STATUS: Awake and alert. Oriented x4 SPEECH, LANGUAGE, HIGHER CORTICAL FUNCTION: Mild expressive aphasia, and [id number] dysarthria CRANIAL NERVES: Pupils are equal, round and reactive. EOMs full and conjugate. No nystagmus. Facial sensation intact in all three divisions bilaterally. Mandibular strength intact. Facial muscles symmetrical and strength intact. SENSATION: Sensation to touch and pinprick is normal. MOTOR: Normal tone in the upper and lower extremity. Normal muscle bulk. No fasciculations. No abnormal movements or posturing. Muscle strength of the major groups in the extremities is 5/5 except for 4/5 in the right arm with right upper extremity drift REFLEXES: Deep tendon reflexes normal and symmetrical. No pathological reflexes. CEREBELLAR/COORDINATION: Finger to nose is normal bilaterally. GAIT/STATION: deferred. laboratory and microbiology Laboratory Tests 04/26/25 04:00 Test 04/26/25 04:00 Range/Units Serum Glucose 84 74-106 mg/dL Problem List Bilateral leg weakness, gait disturbance, Trunk ataxia Right upper extremity weakness, expressive aphasia, dysarthria, dysphagia Acute pontine stroke Assessment/Plan Monitoring Supportive treatment Telemetry Follow-up Lipitor profile Clear liquid diet ILovenox 1 milligram/kg subQ b.i.d. Speech pathology on case Physical therapy Cardiology on case More recommendation per clinical course This medical document was created using an electronic medical record system with [employer] dictation system. Although this document has been carefully reviewed, there may still be some phonetic and typographical errors. These areas are purely typographical due to imperfections of the software programs, and do not reflect any compromise in the patient's medical care. Prognosis poor Plan discussed with: Patient, Other TAMIKO RUVALCABA MD Apr 28, 2025 21:37
[2025-04-29] VITALS (12 sets, daily range): BP systolic 136–169; BP diastolic 64–90; PULSE 53–98; RESP 15–20; TEMP 97.7–98.3; O2SAT 96–99
[2025-04-29 02:07] LABS: INR 1.07 (0.9-1.15); Partial Thromboplastin Time 31.3 SEC (24.5-34.5); Prothrombin Time 11.3 sec (9.3-11.8)
--- NOTE | 2025-04-29 12:07 | DVHPN2 ---
Reviewed: Care Plan, H&P Changes from previous H/P or p: No Changes General: Per HPI Eyes: No Pain, No Vision change, No Conjunctivae inflammation, No Eyelid inflammation, No Other, No Redness ENT: No Ear pain, No Ear discharge, No Nose pain, No Nose discharge, No Nose congestion, No Mouth pain, No Mouth swelling, No Throat pain, No Throat swelling, No Other Cardiovascular: No Chest Pain, No Palpitations, No Orthopnea, No Paroxysmal Noc. Dyspnea, No Edema, No Lt Headedness, No Other Respiratory: No Cough, No Dry, No Shortness of breath, No SOB with excertion, No Wheezing, No Hemoptysis, No Pleuritic Pain, No Sputum, No Other Gastrointestinal: No Nausea, No Vomiting, No Abdominal Pain, No Diarrhea, No Constipation, No Melena, No Hematochezia, No Other Genitourinary: No Dysuria, No Frequency, No Incontinence, No Hematuria, No Retention, No Other Musculoskeletal: other (Bilateral leg swelling); No neck pain, No shoulder pain, No arm pain, No back pain, No hand pain, No leg pain, No foot pain Skin: No Rash, No Lesions, No Jaundice, No Bruising, No Other Objective Vitals Vital Signs Date Time Temp Pulse Resp B/P (MAP) Pulse Ox O2 Delivery O2 Flow Rate FiO2 04/29/25 11:17 72 138/80 04/29/25 09:21 97.7 17 98 97.7 04/28/25 20:00 Room Air* 0 21 Intake/Output Intake and Output 04/29/25 07:00 Intake Total 1420 ml Output Total 400 ml Balance 1020 ml Intake Oral 1420 ml Output Urine Total 400 ml # Voids 3 # Bowel Movements 1 General Appearance: Alert, Oriented X3, Cooperative Cardiovascular: Regular rate, Normal S1, Normal S2 Medications Current Medications Medications Dose Ordered Sig/Karthikeyan Route Start Time Stop Time Status Last Admin Dose Admin Metoprolol Tartrate 25 mg BID PO 04/25/25 22:00 04/29/25 10:17 25 MG Hydralazine HCl 10 mg Q6HP PRN IV 04/25/25 15:30 04/28/25 08:09 10 MG Diagnostic Test (Pha) 1 strip ACHS 04/25/25 17:00 04/29/25 11:23 1 STRIP Insulin Human Regular HS SC 04/25/25 22:00 04/28/25 21:29 3 UNITS Insulin Human Regular AC SC 04/25/25 17:00 04/28/25 16:57 3 UNITS Dextrose 50 ml UD PRN IV 04/25/25 15:30 Sodium Chloride 10 ml Q8HR IV 04/25/25 22:00 04/29/25 05:55 10 ML Acetaminophen/ Hydrocodone Bitart 1 tab Q4HP PRN PO 04/25/25 15:30 Ondansetron HCl 4 mg Q4HP PRN IV 04/25/25 15:30 Docusate Sodium 100 mg BIDPRN PRN PO 04/25/25 15:30 Acetaminophen 650 mg Q6HP PRN PO 04/25/25 15:30 Nitroglycerin 0.4 mg Q5MINP PRN SL 04/25/25 17:45 Morphine Sulfate 2 mg Q30M PRN IV 04/25/25 17:45 Lorazepam 1 mg ONCE PRN IV 04/25/25 20:45 Enoxaparin Sodium 100 mg Q12HR SC 04/25/25 22:00 04/28/25 09:23 100 MG Enoxaparin Sodium 100 mg Q12HR SC 04/25/25 22:00 UNV Aspirin 81 mg DAILY PO 04/27/25 10:00 04/29/25 10:10 81 MG Atorvastatin Calcium 40 mg HS PO 04/28/25 22:00 04/28/25 21:31 40 MG Zolpidem Tartrate 5 mg HSPRN PRN PO 04/28/25 20:15 Laboratory Results Laboratory Tests 04/26/25 04:00 Coagulation Test 04/29/25 01:37 Prothrombin Time 11.3 sec (9.3-11.8) Prothrombin Time INR 1.07 (0.9-1.15) Activated Partial Thromboplast Time 31.3 SEC (24.5-34.5) Urinalysis Test 04/25/25 12:03 Urine Color Light-orange (Yellow) Urine Clarity Ex.turbid (Clear) Urine pH 5.5 (5.0-9.0) Urine Specific [place] 1.030 (1.001-1.035) Urine Protein Trace (Negative) H Urine Ketones 1+ (Negative) H Urine Blood Negative /uL (Negative) Urine Nitrite Negative (Negative) Urine Bilirubin Negative (Negative) Urine Urobilinogen 2 mg/dL (Negative) H Urine Leukocyte Esterase Negative /uL (Negative) Urine RBC 3 /hpf (0 - 3) Urine Microscopic WBC 46 /HPF (0-3) H Urine Squamous Epithelial Cells None seen /hpf (<5) Urine Bacteria None seen /hpf (None Seen) Urine Mucus Few (None Seen) Urine Glucose 1+ mg/dL (Normal) H Labs and/or images reviewed: Labs reviewed by me, Image(s) reviewed by me Assessment/Plan Assessment/Plan Bilateral leg weakness, gait disturbance, Trunk ataxia Right upper extremity weakness, expressive aphasia, dysarthria, dysphagia Acute pontine stroke difficulty walking 04/26/[address] consult to cloud services architect discussed with daughter at bedside 04/27/25 pt is still very weak, unable to walk by himself ordered echo consult cardio to rule out cardiac thrombus discussed with pt, pt's sister and pt's daughter at bedside 04/28/2025 discussed with pt at bedside daughter also in the room awaiting for discharge to SNF ([facility]) Plan discussed with: Patient My Orders Orders - JANNIE IZAGUIRRE DO Procedure Category Date Status Time * Cardiology Consult CONS 04/28/25 Transmitted 15:42 * Bioinformatician CONS 04/28/25 Transmitted Consult Zolpidem Tartrate PHA 04/28/25 In Process (Ambien) 20:15 Date of Service: Apr 28, 2025 Billing Provider: JANNIE IZAGUIRRE DO Common Visit Codes: [id number] INP/OBS CARE(HIGH) JANNIE IZAGUIRRE DO Apr 29, 2025 12:07
--- NOTE | 2025-04-29 12:11 | DVHPN2 ---
Reviewed: Care Plan, H&P, Labs, Medications, Previous Orders, Radiology Changes from previous H/P or p: No Changes General: Per HPI Eyes: No Pain, No Vision change, No Conjunctivae inflammation, No Eyelid inflammation, No Other, No Redness ENT: No Ear pain, No Ear discharge, No Nose pain, No Nose discharge, No Nose congestion, No Mouth pain, No Mouth swelling, No Throat pain, No Throat swelling, No Other Cardiovascular: No Chest Pain, No Palpitations, No Orthopnea, No Paroxysmal Noc. Dyspnea, No Edema, No Lt Headedness, No Other Respiratory: No Cough, No Dry, No Shortness of breath, No SOB with excertion, No Wheezing, No Hemoptysis, No Pleuritic Pain, No Sputum, No Other Gastrointestinal: No Nausea, No Vomiting, No Abdominal Pain, No Diarrhea, No Constipation, No Melena, No Hematochezia, No Other Genitourinary: No Dysuria, No Frequency, No Incontinence, No Hematuria, No Retention, No Other Musculoskeletal: other (Bilateral leg swelling); No neck pain, No shoulder pain, No arm pain, No back pain, No hand pain, No leg pain, No foot pain Skin: No Rash, No Lesions, No Jaundice, No Bruising, No Other Objective Vitals Vital Signs Date Time Temp Pulse Resp B/P (MAP) Pulse Ox O2 Delivery O2 Flow Rate FiO2 04/29/25 11:17 72 138/80 04/29/25 09:21 97.7 17 98 97.7 04/28/25 20:00 Room Air* 0 21 Intake/Output Intake and Output 04/29/25 07:00 Intake Total 1420 ml Output Total 400 ml Balance 1020 ml Intake Oral 1420 ml Output Urine Total 400 ml # Voids 3 # Bowel Movements 1 General Appearance: Alert, Oriented X3, Cooperative Cardiovascular: Regular rate, Normal S1, Normal S2 Medications Current Medications Medications Dose Ordered Sig/Karthikeyan Route Start Time Stop Time Status Last Admin Dose Admin Metoprolol Tartrate 25 mg BID PO 04/25/25 22:00 04/29/25 10:17 25 MG Hydralazine HCl 10 mg Q6HP PRN IV 04/25/25 15:30 04/28/25 08:09 10 MG Diagnostic Test (Pha) 1 strip ACHS 04/25/25 17:00 04/29/25 11:23 1 STRIP Insulin Human Regular HS SC 04/25/25 22:00 04/28/25 21:29 3 UNITS Insulin Human Regular AC SC 04/25/25 17:00 04/28/25 16:57 3 UNITS Dextrose 50 ml UD PRN IV 04/25/25 15:30 Sodium Chloride 10 ml Q8HR IV 04/25/25 22:00 04/29/25 05:55 10 ML Acetaminophen/ Hydrocodone Bitart 1 tab Q4HP PRN PO 04/25/25 15:30 Ondansetron HCl 4 mg Q4HP PRN IV 04/25/25 15:30 Docusate Sodium 100 mg BIDPRN PRN PO 04/25/25 15:30 Acetaminophen 650 mg Q6HP PRN PO 04/25/25 15:30 Nitroglycerin 0.4 mg Q5MINP PRN SL 04/25/25 17:45 Morphine Sulfate 2 mg Q30M PRN IV 04/25/25 17:45 Lorazepam 1 mg ONCE PRN IV 04/25/25 20:45 Enoxaparin Sodium 100 mg Q12HR SC 04/25/25 22:00 04/28/25 09:23 100 MG Enoxaparin Sodium 100 mg Q12HR SC 04/25/25 22:00 UNV Aspirin 81 mg DAILY PO 04/27/25 10:00 04/29/25 10:10 81 MG Atorvastatin Calcium 40 mg HS PO 04/28/25 22:00 04/28/25 21:31 40 MG Zolpidem Tartrate 5 mg HSPRN PRN PO 04/28/25 20:15 Laboratory Results Laboratory Tests 04/26/25 04:00 Coagulation Test 04/29/25 01:37 Prothrombin Time 11.3 sec (9.3-11.8) Prothrombin Time INR 1.07 (0.9-1.15) Activated Partial Thromboplast Time 31.3 SEC (24.5-34.5) Urinalysis Test 04/25/25 12:03 Urine Color Light-orange (Yellow) Urine Clarity Ex.turbid (Clear) Urine pH 5.5 (5.0-9.0) Urine Specific [place] 1.030 (1.001-1.035) Urine Protein Trace (Negative) H Urine Ketones 1+ (Negative) H Urine Blood Negative /uL (Negative) Urine Nitrite Negative (Negative) Urine Bilirubin Negative (Negative) Urine Urobilinogen 2 mg/dL (Negative) H Urine Leukocyte Esterase Negative /uL (Negative) Urine RBC 3 /hpf (0 - 3) Urine Microscopic WBC 46 /HPF (0-3) H Urine Squamous Epithelial Cells None seen /hpf (<5) Urine Bacteria None seen /hpf (None Seen) Urine Mucus Few (None Seen) Urine Glucose 1+ mg/dL (Normal) H Assessment/Plan Assessment/Plan Bilateral leg weakness, gait disturbance, Trunk ataxia Right upper extremity weakness, expressive aphasia, dysarthria, dysphagia Acute pontine stroke difficulty walking 04/26/[address] consult to social services manager discussed with daughter at bedside 04/27/25 pt is still very weak, unable to walk by himself ordered echo consult cardio to rule out cardiac thrombus discussed with pt, pt's sister and pt's daughter at bedside 04/28/2025 discussed with pt at bedside daughter also in the room awaiting for discharge to SNF ([facility]) 04/29/2025 pt is pending for an MARIKA this afternoon per cardiology recommendation pending SNF placement Plan discussed with: Patient My Orders Orders - JANNIE IZAGUIRRE DO Procedure Category Date Status Time * Cardiology Consult CONS 04/28/25 Transmitted 15:42 * Wire Drawing Setter CONS 04/28/25 Transmitted Consult Zolpidem Tartrate PHA 04/28/25 In Process (Ambien) 20:15 Date of Service: Apr 29, 2025 Billing Provider: JANNIE IZAGUIRRE DO Common Visit Codes: [id number] INP/OBS CARE(HIGH) JANNIE IZAGUIRRE DO Apr 29, 2025 12:10
[2025-04-29] MEDS: fentaNYL CITRATE 100 MCG/2 ML VL IV ONE (15:15)
[2025-04-29] MEDS: LIDOCAINE VISCOUS 2% 15ML UD PO ONE (15:15)
[2025-04-29] MEDS: MIDAZOLAM HCL 2MG/2ML 2ml VIAL (1mg/ml) IV ONE (15:15)
--- NOTE | 2025-04-29 16:24 | DVHOP2 ---
Operative Report - 2 Report Details Date: 04/29/25 Preop Diagnosis: CVA rule out atrial thrombus Postop Diagnosis: Normal MARIKA Surgeon: Rima Bae MD Anesthesiologist: Conscious sedation Anesthesia: Mac, Local Consent: The patient was informed of the risks and benefits of the procedure. These include but are not limited to complications of anesthesia, postoperative infection, incomplete relief of symptoms, recurrence of symptoms, damage to blood vessels, nerves and tendons, deep venous thrombosis, pulmonary embolism and possible need for repeat surgery in the future. Complications: No complications Findings: Normal MARIKA Indications for Surgery: CVA Name of Procedure Performed Transesophageal echocardiogram Procedure Details Procedure Details: Prior full informed consent obtained the patient was placed in left lateral decubitus and semi-Diaz position. Lidocaine gel was given to gargle. A transesophageal probe was passed after conscious sedation given. Standard views were obtained with a transesophageal echocardiographic probe. No complications. Findings: Technically good study. Normal chamber sizes. Valves appear to be structurally normal without intrinsic defects. Normal aortic mitral tricuspid and pulmonic valves. Left ventricular systolic performance is preserved. EF is about 60% with normal right ventricular function. Doppler reveals mild tricuspid and aortic insufficiency. Trace mitral insufficiency. No pericardial effusion. No masses or vegetations discernible. The left atrial appendage is clean and normal. Bubble study does not reveal crossover. Condition Good Disposition Still a Patient Date of Service: Apr 29, 2025 Billing Provider: RIMA BAE Sr., MD Cardiology Common Codes: [id number] INP/OBS CARE (High) Cardiology Procedure Codes: 67656-ZFF W/IMG DOC INCL PROB ACQ RIMA BAE Sr., MD Apr 29, 2025 16:24
--- NOTE | 2025-04-29 22:38 | DVHPN2 ---
Progress Note - Dictate Date Seen: Apr 29, 2025 Medical Necessity Reason Pt with a Central, PICC or Fol: No Subjective Mr. Romero is a 65 years old not sure left-handed gentleman with a history of hypertension, diabetes, atrial fibrillation, he came to the [facility] on 04/25/2025 with a chief complaint of general weakness. I have seen examined the patient, talked to his nurse, he is doing fine, speech is further better, but is still slurry, he walked more than yesterday on the floor today UDS, 04/25/2025: Negative Urinalysis, 04/25/2025: WBC: 46, urine leukocyte esterase: Negative CBC, 04/25/2025: Unremarkable BMP 04/25/2025: Unremarkable HGB A1c, 03/19/2025: 6.3 TBI/AST/ALT/AP, 03/20/2025: 1/9//110/72 TG/HDL/LDL/HDL, 04/25/25: 78/120/46/50, 04/26/2025: 77/105/38/44 Echocardiogram, 04/24/2025: LV EF IS 69% AND IS NORMAL SLIGHTLY DILATED RV,RA AND LA NORMAL VALVES NO EFFUSION MARIKA, 04/29/2025: Normal MARIKA Carotid Doppler, 04/25/2025: 1. No hemodynamically significant stenosis noted in the right carotid system. 2. No hemodynamically significant stenosis noted in the left carotid system. CT head, 04/25/2025: 1. Mild chronic ischemic changes without evidence of acute intracranial process. 2. Bilateral maxillary sinus disease MRI head, 04/26/2025: 1. Acute/ subacute left pontine infarct. Clinical correlation and continued follow-up is recommended. 2. Mild changes of chronic microvascular ischemic disease. Mild paranasal sinus disease. vital signs Vital Sign Date Time Temp Pulse Resp B/P (MAP) Pulse Ox O2 Delivery O2 Flow Rate FiO2 04/29/25 21:00 97.8 98 19 136/77 (96) 96 97.8 04/29/25 08:00 Room Air* 0 21 Total Intake and Output 04/28/25 04/28/25 04/29/25 15:00 23:00 07:00 Intake Total 1200 ml 220 ml Output Total 400 ml Balance 1200 ml -180 ml medications Current Medications Medications Dose Ordered Sig/Karthikeyan Route Start Time Stop Time Status Last Admin Dose Admin Metoprolol Tartrate 25 mg BID PO 04/25/25 22:00 04/29/25 10:17 25 MG Hydralazine HCl 10 mg Q6HP PRN IV 04/25/25 15:30 04/28/25 08:09 10 MG Diagnostic Test (Pha) 1 strip ACHS 04/25/25 17:00 04/29/25 17:00 1 STRIP Insulin Human Regular HS SC 04/25/25 22:00 04/28/25 21:29 3 UNITS Insulin Human Regular AC SC 04/25/25 17:00 04/29/25 17:00 2 UNITS Dextrose 50 ml UD PRN IV 04/25/25 15:30 Sodium Chloride 10 ml Q8HR IV 04/25/25 22:00 04/29/25 14:00 10 ML Acetaminophen/ Hydrocodone Bitart 1 tab Q4HP PRN PO 04/25/25 15:30 Ondansetron HCl 4 mg Q4HP PRN IV 04/25/25 15:30 Docusate Sodium 100 mg BIDPRN PRN PO 04/25/25 15:30 Acetaminophen 650 mg Q6HP PRN PO 04/25/25 15:30 Nitroglycerin 0.4 mg Q5MINP PRN SL 04/25/25 17:45 Morphine Sulfate 2 mg Q30M PRN IV 04/25/25 17:45 Lorazepam 1 mg ONCE PRN IV 04/25/25 20:45 Enoxaparin Sodium 100 mg Q12HR SC 04/25/25 22:00 04/28/25 09:23 100 MG Enoxaparin Sodium 100 mg Q12HR SC 04/25/25 22:00 UNV Aspirin 81 mg DAILY PO 04/27/25 10:00 04/29/25 10:10 81 MG Atorvastatin Calcium 40 mg HS PO 04/28/25 22:00 04/28/25 21:31 40 MG Zolpidem Tartrate 5 mg HSPRN PRN PO 04/28/25 20:15 objective General: the patient is well developed and nourished. No acute distress. MENTAL STATUS: Awake and alert. Oriented x4 SPEECH, LANGUAGE, HIGHER CORTICAL FUNCTION: Mild expressive aphasia, and [id number] dysarthria CRANIAL NERVES: Pupils are equal, round and reactive. EOMs full and conjugate. No nystagmus. Facial sensation intact in all three divisions bilaterally. Mandibular strength intact. Facial muscles symmetrical and strength intact. SENSATION: Sensation to touch and pinprick is normal. MOTOR: Normal tone in the upper and lower extremity. Normal muscle bulk. No fasciculations. No abnormal movements or posturing. Muscle strength of the major groups in the extremities is 5/5 except for 4/5 in the right arm with right upper extremity drift REFLEXES: Deep tendon reflexes normal and symmetrical. No pathological reflexes. CEREBELLAR/COORDINATION: Finger to nose is normal bilaterally. GAIT/STATION: deferred. laboratory and microbiology Laboratory Tests 04/26/25 04:00 Test 04/26/25 04:00 Range/Units Serum Glucose 84 74-106 mg/dL Problem List Bilateral leg weakness, gait disturbance, Trunk ataxia Right upper extremity weakness, expressive aphasia, dysarthria, dysphagia Acute pontine stroke Assessment/Plan Monitoring Supportive treatment Telemetry Follow-up Lipitor profile Clear liquid diet Lovenox 1 milligram/kg subQ b.i.d. Speech pathology on case Physical therapy Cardiology on case More recommendation per clinical course This medical document was created using an electronic medical record system with [employer] dictation system. Although this document has been carefully reviewed, there may still be some phonetic and typographical errors. These areas are purely typographical due to imperfections of the software programs, and do not reflect any compromise in the patient's medical care. Prognosis poor Plan discussed with: Patient, Other TAMIKO RUVALCABA MD Apr 29, 2025 22:38
[2025-04-30] VITALS (9 sets, daily range): BP systolic 108–151; BP diastolic 65–86; PULSE 59–95; RESP 18–19; TEMP 97.7–99.3; O2SAT 95–98
--- NOTE | 2025-04-30 16:05 | DVHPN2 ---
Reviewed: Care Plan, H&P, Labs, Medications, Previous Orders, Radiology Changes from previous H/P or p: No Changes General: Per HPI Eyes: No Pain, No Vision change, No Conjunctivae inflammation, No Eyelid inflammation, No Other, No Redness ENT: No Ear pain, No Ear discharge, No Nose pain, No Nose discharge, No Nose congestion, No Mouth pain, No Mouth swelling, No Throat pain, No Throat swelling, No Other Cardiovascular: No Chest Pain, No Palpitations, No Orthopnea, No Paroxysmal Noc. Dyspnea, No Edema, No Lt Headedness, No Other Respiratory: No Cough, No Dry, No Shortness of breath, No SOB with excertion, No Wheezing, No Hemoptysis, No Pleuritic Pain, No Sputum, No Other Gastrointestinal: No Nausea, No Vomiting, No Abdominal Pain, No Diarrhea, No Constipation, No Melena, No Hematochezia, No Other Genitourinary: No Dysuria, No Frequency, No Incontinence, No Hematuria, No Retention, No Other Musculoskeletal: other Skin: No Rash, No Lesions, No Jaundice, No Bruising, No Other Objective Vitals Vital Signs Date Time Temp Pulse Resp B/P (MAP) Pulse Ox O2 Delivery O2 Flow Rate FiO2 04/30/25 13:00 98.9 66 18 133/68 (89) 98 98.9 04/30/25 08:00 Room Air* 0 21 Intake/Output Intake and Output 04/30/25 07:00 Intake Total 325 ml Output Total 825 ml Balance -500 ml Intake Oral 325 ml Output Urine Total 825 ml # Voids 2 General Appearance: Alert, Oriented X3, Cooperative Cardiovascular: Regular rate, Normal S1, Normal S2 Medications Current Medications Medications Dose Ordered Sig/Karthikeyan Route Start Time Stop Time Status Last Admin Dose Admin Metoprolol Tartrate 25 mg BID PO 04/25/25 22:00 04/30/25 10:57 25 MG Hydralazine HCl 10 mg Q6HP PRN IV 04/25/25 15:30 04/30/25 01:17 10 MG Diagnostic Test (Pha) 1 strip ACHS 04/25/25 17:00 04/30/25 11:54 1 STRIP Insulin Human Regular HS SC 04/25/25 22:00 04/29/25 22:34 3 UNITS Insulin Human Regular AC SC 04/25/25 17:00 04/30/25 12:02 3 UNITS Dextrose 50 ml UD PRN IV 04/25/25 15:30 Sodium Chloride 10 ml Q8HR IV 04/25/25 22:00 04/30/25 14:24 10 ML Acetaminophen/ Hydrocodone Bitart 1 tab Q4HP PRN PO 04/25/25 15:30 Ondansetron HCl 4 mg Q4HP PRN IV 04/25/25 15:30 Docusate Sodium 100 mg BIDPRN PRN PO 04/25/25 15:30 Acetaminophen 650 mg Q6HP PRN PO 04/25/25 15:30 Nitroglycerin 0.4 mg Q5MINP PRN SL 04/25/25 17:45 Morphine Sulfate 2 mg Q30M PRN IV 04/25/25 17:45 Lorazepam 1 mg ONCE PRN IV 04/25/25 20:45 Enoxaparin Sodium 100 mg Q12HR SC 04/25/25 22:00 04/30/25 10:56 100 MG Enoxaparin Sodium 100 mg Q12HR SC 04/25/25 22:00 UNV Aspirin 81 mg DAILY PO 04/27/25 10:00 04/30/25 10:56 81 MG Atorvastatin Calcium 40 mg HS PO 04/28/25 22:00 04/29/25 22:37 40 MG Zolpidem Tartrate 5 mg HSPRN PRN PO 04/28/25 20:15 Laboratory Results Laboratory Tests 04/26/25 04:00 Urinalysis Test 04/25/25 12:03 Urine Color Light-orange (Yellow) Urine Clarity Ex.turbid (Clear) Urine pH 5.5 (5.0-9.0) Urine Specific [place] 1.030 (1.001-1.035) Urine Protein Trace (Negative) H Urine Ketones 1+ (Negative) H Urine Blood Negative /uL (Negative) Urine Nitrite Negative (Negative) Urine Bilirubin Negative (Negative) Urine Urobilinogen 2 mg/dL (Negative) H Urine Leukocyte Esterase Negative /uL (Negative) Urine RBC 3 /hpf (0 - 3) Urine Microscopic WBC 46 /HPF (0-3) H Urine Squamous Epithelial Cells None seen /hpf (<5) Urine Bacteria None seen /hpf (None Seen) Urine Mucus Few (None Seen) Urine Glucose 1+ mg/dL (Normal) H Assessment/Plan Assessment/Plan Bilateral leg weakness, gait disturbance, Trunk ataxia Right upper extremity weakness, expressive aphasia, dysarthria, dysphagia Acute pontine stroke difficulty walking 04/26/[address] consult to geriatric social worker discussed with daughter at bedside 04/27/25 pt is still very weak, unable to walk by himself ordered echo consult cardio to rule out cardiac thrombus discussed with pt, pt's sister and pt's daughter at bedside 04/28/2025 discussed with pt at bedside daughter also in the room awaiting for discharge to SNF ([facility]) 04/29/2025 pt is pending for an MARIKA this afternoon per cardiology recommendation pending SNF placement 04/30/2025 awaiting for SNF placement getting better Plan discussed with: Patient My Orders Orders - JANNIE IZAGUIRRE DO Procedure Category Date Status Time Consistent DIET 04/30/25 [facility]mitted [facility]Diabetes Breakfast Date of Service: Apr 30, 2025 Billing Provider: JANNIE IZAGUIRRE DO Common Visit Codes: [id number] INP/OBS CARE(HIGH) JANNIE IZAGUIRRE DO Apr 30, 2025 16:05
--- NOTE | 2025-04-30 19:58 | DVHPN2 ---
Subjective Denies CP or SOB No cardiac event reported Reviewed: Care Plan, H&P, Labs, Medications, Previous Orders, Radiology Changes from previous H/P or p: No Changes General: Per HPI Eyes: No Pain, No Vision change, No Conjunctivae inflammation, No Eyelid inflammation, No Other, No Redness ENT: No Ear pain, No Ear discharge, No Nose pain, No Nose discharge, No Nose congestion, No Mouth pain, No Mouth swelling, No Throat pain, No Throat swelling, No Other Cardiovascular: No Chest Pain, No Palpitations, No Orthopnea, No Paroxysmal Noc. Dyspnea, No Edema, No Lt Headedness, No Other Respiratory: No Cough, No Dry, No Shortness of breath, No SOB with excertion, No Wheezing, No Hemoptysis, No Pleuritic Pain, No Sputum, No Other Gastrointestinal: No Nausea, No Vomiting, No Abdominal Pain, No Diarrhea, No Constipation, No Melena, No Hematochezia, No Other Genitourinary: No Dysuria, No Frequency, No Incontinence, No Hematuria, No Retention, No Other Musculoskeletal: other Skin: No Rash, No Lesions, No Jaundice, No Bruising, No Other Objective Vitals Vital Signs Date Time Temp Pulse Resp B/P (MAP) Pulse Ox O2 Delivery O2 Flow Rate FiO2 04/30/25 16:30 97.7 80 18 141/81 (101) 97 97.7 04/30/25 08:00 Room Air* 0 21 Intake/Output Intake and Output 04/30/25 07:00 Intake Total 325 ml Output Total 825 ml Balance -500 ml Intake Oral 325 ml Output Urine Total 825 ml # Voids 2 General Appearance: Alert, Oriented X3, Cooperative Cardiovascular: Regular rate, Normal S1, Normal S2 Medications Current Medications Medications Dose Ordered Sig/Karthikeyan Route Start Time Stop Time Status Last Admin Dose Admin Metoprolol Tartrate 25 mg BID PO 04/25/25 22:00 04/30/25 10:57 25 MG Hydralazine HCl 10 mg Q6HP PRN IV 04/25/25 15:30 04/30/25 01:17 10 MG Diagnostic Test (Pha) 1 strip ACHS 04/25/25 17:00 04/30/25 16:52 1 STRIP Insulin Human Regular HS SC 04/25/25 22:00 04/29/25 22:34 3 UNITS Insulin Human Regular AC SC 04/25/25 17:00 04/30/25 12:02 3 UNITS Dextrose 50 ml UD PRN IV 04/25/25 15:30 Sodium Chloride 10 ml Q8HR IV 04/25/25 22:00 04/30/25 14:24 10 ML Acetaminophen/ Hydrocodone Bitart 1 tab Q4HP PRN PO 04/25/25 15:30 Ondansetron HCl 4 mg Q4HP PRN IV 04/25/25 15:30 Docusate Sodium 100 mg BIDPRN PRN PO 04/25/25 15:30 Acetaminophen 650 mg Q6HP PRN PO 04/25/25 15:30 Nitroglycerin 0.4 mg Q5MINP PRN SL 04/25/25 17:45 Morphine Sulfate 2 mg Q30M PRN IV 04/25/25 17:45 Lorazepam 1 mg ONCE PRN IV 04/25/25 20:45 Enoxaparin Sodium 100 mg Q12HR SC 04/25/25 22:00 04/30/25 10:56 100 MG Enoxaparin Sodium 100 mg Q12HR SC 04/25/25 22:00 UNV Aspirin 81 mg DAILY PO 04/27/25 10:00 04/30/25 10:56 81 MG Atorvastatin Calcium 40 mg HS PO 04/28/25 22:00 04/29/25 22:37 40 MG Zolpidem Tartrate 5 mg HSPRN PRN PO 04/28/25 20:15 Laboratory Results Laboratory Tests 04/26/25 04:00 Urinalysis Test 04/25/25 12:03 Urine Color Light-orange (Yellow) Urine Clarity Ex.turbid (Clear) Urine pH 5.5 (5.0-9.0) Urine Specific [place] 1.030 (1.001-1.035) Urine Protein Trace (Negative) H Urine Ketones 1+ (Negative) H Urine Blood Negative /uL (Negative) Urine Nitrite Negative (Negative) Urine Bilirubin Negative (Negative) Urine Urobilinogen 2 mg/dL (Negative) H Urine Leukocyte Esterase Negative /uL (Negative) Urine RBC 3 /hpf (0 - 3) Urine Microscopic WBC 46 /HPF (0-3) H Urine Squamous Epithelial Cells None seen /hpf (<5) Urine Bacteria None seen /hpf (None Seen) Urine Mucus Few (None Seen) Urine Glucose 1+ mg/dL (Normal) H Assessment/Plan Assessment/Plan Acute left pontine infarct, rule out cardioembolic source Paroxysmal atrial fibrillation, stage 3A (on Eliquis) Hypertension Dyslipidemia Type 2 diabetes mellitus Plan/Recommendation We will continue with the following plan/recommendations (Dr. Bae): Patient with history of atrial fibrillation on Eliquis was admitted with a diagnosis of acute/subacute left pontine infarct. The patient underwent a transesophageal echocardiogram, which was reported as normal with no obvious cardioembolic source identified. The case was discussed with Dr. Bae, and in light of the stroke despite anticoagulation, we recommend consultation with Hematology for further evaluation and guidance regarding potential hypercoagulable states and alternative anticoagulation strategies. Plan discussed with: Patient Date of Service: Apr 30, 2025 Billing Provider: RIMA BAE Sr., MD Common Visit Codes: CONSULT ONLY Consultation Codes: [id number] CONSULT <45MIN LILLIAN BAXTER Apr 30, 2025 19:58
[2025-05-01] VITALS (8 sets, daily range): BP systolic 130–153; BP diastolic 76–89; PULSE 56–100; RESP 16–19; TEMP 98.1–98.9; O2SAT 96–97
[2025-05-01 07:52] LABS: Urine Amorphous Crystal FEW /hpf (None Seen); Urine Protein, UAD Negative (Negative)
--- NOTE | 2025-05-01 09:05 | DVHPN2 ---
Reviewed: Care Plan, H&P, Labs, Medications, Previous Orders, Radiology Changes from previous H/P or p: No Changes General: Per HPI Eyes: No Pain, No Vision change, No Conjunctivae inflammation, No Eyelid inflammation, No Other, No Redness ENT: No Ear pain, No Ear discharge, No Nose pain, No Nose discharge, No Nose congestion, No Mouth pain, No Mouth swelling, No Throat pain, No Throat swelling, No Other Cardiovascular: No Chest Pain, No Palpitations, No Orthopnea, No Paroxysmal Noc. Dyspnea, No Edema, No Lt Headedness, No Other Respiratory: No Cough, No Dry, No Shortness of breath, No SOB with excertion, No Wheezing, No Hemoptysis, No Pleuritic Pain, No Sputum, No Other Gastrointestinal: No Nausea, No Vomiting, No Abdominal Pain, No Diarrhea, No Constipation, No Melena, No Hematochezia, No Other Genitourinary: No Dysuria, No Frequency, No Incontinence, No Hematuria, No Retention, No Other Musculoskeletal: other Skin: No Rash, No Lesions, No Jaundice, No Bruising, No Other Objective Vitals Vital Signs Date Time Temp Pulse Resp B/P (MAP) Pulse Ox O2 Delivery O2 Flow Rate FiO2 05/01/25 05:00 98.1 68 18 130/80 (97) 97 98.1 04/30/25 20:00 Room Air* 0 21 Intake/Output Intake and Output 05/01/25 07:00 Intake Total 2350 ml Output Total 1800 ml Balance 550 ml Intake Oral 2350 ml Output Urine Total 1800 ml General Appearance: Alert, Oriented X3, Cooperative Cardiovascular: Regular rate, Normal S1, Normal S2 Medications Current Medications Medications Dose Ordered Sig/Karthikeyan Route Start Time Stop Time Status Last Admin Dose Admin Metoprolol Tartrate 25 mg BID PO 04/25/25 22:00 04/30/25 22:01 25 MG Hydralazine HCl 10 mg Q6HP PRN IV 04/25/25 15:30 04/30/25 01:17 10 MG Diagnostic Test (Pha) 1 strip ACHS 04/25/25 17:00 05/01/25 06:27 1 STRIP Insulin Human Regular HS SC 04/25/25 22:00 04/30/25 22:09 3 UNITS Insulin Human Regular AC SC 04/25/25 17:00 05/01/25 06:29 2 UNITS Dextrose 50 ml UD PRN IV 04/25/25 15:30 Sodium Chloride 10 ml Q8HR IV 04/25/25 22:00 05/01/25 06:27 10 ML Acetaminophen/ Hydrocodone Bitart 1 tab Q4HP PRN PO 04/25/25 15:30 Ondansetron HCl 4 mg Q4HP PRN IV 04/25/25 15:30 Docusate Sodium 100 mg BIDPRN PRN PO 04/25/25 15:30 Acetaminophen 650 mg Q6HP PRN PO 04/25/25 15:30 Nitroglycerin 0.4 mg Q5MINP PRN SL 04/25/25 17:45 Morphine Sulfate 2 mg Q30M PRN IV 04/25/25 17:45 Lorazepam 1 mg ONCE PRN IV 04/25/25 20:45 Enoxaparin Sodium 100 mg Q12HR SC 04/25/25 22:00 04/30/25 22:02 100 MG Enoxaparin Sodium 100 mg Q12HR SC 04/25/25 22:00 UNV Aspirin 81 mg DAILY PO 04/27/25 10:00 04/30/25 10:56 81 MG Atorvastatin Calcium 40 mg HS PO 04/28/25 22:00 04/30/25 21:59 40 MG Zolpidem Tartrate 5 mg HSPRN PRN PO 04/28/25 20:15 Laboratory Results Laboratory Tests 04/26/25 04:00 Urinalysis Test 04/25/25 12:03 05/01/25 01:30 Urine Mucus Few (None Seen) Urine Color Yellow (Yellow) Urine Clarity Clear (Clear) Urine pH 6.0 (5.0-9.0) Urine Specific [place] 1.026 (1.001-1.035) Urine Protein Negative (Negative) Urine Ketones Negative (Negative) Urine Blood Negative /uL (Negative) Urine Nitrite Negative (Negative) Urine Bilirubin Negative (Negative) Urine Urobilinogen 8 mg/dL (Negative) H Urine Leukocyte Esterase Negative /uL (Negative) Urine RBC 1 /hpf (0 - 3) Urine Microscopic WBC 2 /HPF (0-3) Urine Squamous Epithelial Cells None seen /hpf (<5) Urine Calcium Oxalate Crystals Few (None Seen) Urine Amorphous Crystals Few /hpf (None Seen) Urine Bacteria None seen /hpf (None Seen) Urine Glucose 3+ mg/dL (Normal) H Assessment/Plan Assessment/Plan Bilateral leg weakness, gait disturbance, Trunk ataxia Right upper extremity weakness, expressive aphasia, dysarthria, dysphagia Acute pontine stroke difficulty walking 04/26/[address] consult to social media strategist discussed with daughter at bedside 04/27/25 pt is still very weak, unable to walk by himself ordered echo consult cardio to rule out cardiac thrombus discussed with pt, pt's sister and pt's daughter at bedside 04/28/2025 discussed with pt at bedside daughter also in the room awaiting for discharge to SNF ([facility]) 04/29/2025 pt is pending for an MARIKA this afternoon per cardiology recommendation pending SNF placement 04/30/2025 awaiting for SNF placement getting better 05/01/25: MARIKA is normal pt is compliant with PT. awaiting SNF placement Plan discussed with: Patient Date of Service: May 01, 2025 Billing Provider: JANNIE IZAGUIRRE DO Common Visit Codes: [id number] INP/OBS CARE(HIGH) JANNIE IZAGUIRRE DO May 01, 2025 09:05
[2025-05-02] VITALS (11 sets, daily range): BP systolic 117–158; BP diastolic 61–96; PULSE 54–132; RESP 16–83; TEMP 98.1–100.3; O2SAT 95–97
[2025-05-02 03:10] LABS: COVID19 ANTIGEN SOFIA FIA POSITIVE (NEGATIVE)
--- NOTE | 2025-05-02 08:53 | DVHPN2 ---
Progress Note - Dictate Date Seen: May 02, 2025 Medical Necessity Reason Pt with a Central, PICC or Fol: No Subjective Mr. Romero is a 65 years old not sure left-handed gentleman with a history of hypertension, diabetes, atrial fibrillation, he came to the [facility] on 04/25/2025 with a chief complaint of general weakness. I have seen examined the patient, talked to his nurse, he is doing fine, he keeps improving slowly, but is still slurry, His tests are positive for COVID-19 UDS, 04/25/2025: Negative Urinalysis, 04/25/2025: WBC: 46, urine leukocyte esterase: Negative SARS-CoV-2 antigen, 05/02/2025: Positive CBC, 04/25/2025: Unremarkable BMP 04/25/2025: Unremarkable HGB A1c, 03/19/2025: 6.3 TBI/AST/ALT/AP, 03/20/2025: 1/9//110/72 TG/HDL/LDL/HDL, 04/25/25: 78/120/46/50, 04/26/2025: 77/105/38/44 Echocardiogram, 04/24/2025: LV EF IS 69% AND IS NORMAL SLIGHTLY DILATED RV,RA AND LA NORMAL VALVES NO EFFUSION MARIKA, 04/29/2025: Normal MARIKA Carotid Doppler, 04/25/2025: 1. No hemodynamically significant stenosis noted in the right carotid system. 2. No hemodynamically significant stenosis noted in the left carotid system. CT head, 04/25/2025: 1. Mild chronic ischemic changes without evidence of acute intracranial process. 2. Bilateral maxillary sinus disease MRI head, 04/26/2025: 1. Acute/ subacute left pontine infarct. Clinical correlation and continued follow-up is recommended. 2. Mild changes of chronic microvascular ischemic disease. Mild paranasal sinus disease. vital signs Vital Sign Date Time Temp Pulse Resp B/P (MAP) Pulse Ox O2 Delivery O2 Flow Rate FiO2 05/02/25 05:59 56 05/02/25 05:00 98.1 83 132/83 (99) 96 98.1 05/01/25 20:00 Room Air* 0 21 Total Intake and Output 05/01/25 05/01/25 05/02/25 15:00 23:00 07:00 Intake Total 1000 ml 240 ml Output Total 1200 ml 650 ml Balance -200 ml -410 ml medications Current Medications Medications Dose Ordered Sig/Karthikeyan Route Start Time Stop Time Status Last Admin Dose Admin Metoprolol Tartrate 25 mg BID PO 04/25/25 22:00 05/01/25 22:10 25 MG Hydralazine HCl 10 mg Q6HP PRN IV 04/25/25 15:30 04/30/25 01:17 10 MG Diagnostic Test (Pha) 1 strip ACHS 04/25/25 17:00 05/02/25 05:02 1 STRIP Insulin Human Regular HS SC 04/25/25 22:00 05/01/25 22:14 3 UNITS Insulin Human Regular AC SC 04/25/25 17:00 05/02/25 05:08 2 UNITS Dextrose 50 ml UD PRN IV 04/25/25 15:30 Sodium Chloride 10 ml Q8HR IV 04/25/25 22:00 05/02/25 05:08 10 ML Acetaminophen/ Hydrocodone Bitart 1 tab Q4HP PRN PO 04/25/25 15:30 Ondansetron HCl 4 mg Q4HP PRN IV 04/25/25 15:30 Docusate Sodium 100 mg BIDPRN PRN PO 04/25/25 15:30 Acetaminophen 650 mg Q6HP PRN PO 04/25/25 15:30 Nitroglycerin 0.4 mg Q5MINP PRN SL 04/25/25 17:45 Morphine Sulfate 2 mg Q30M PRN IV 04/25/25 17:45 Lorazepam 1 mg ONCE PRN IV 04/25/25 20:45 Enoxaparin Sodium 100 mg Q12HR SC 04/25/25 22:00 05/01/25 22:10 100 MG Enoxaparin Sodium 100 mg Q12HR SC 04/25/25 22:00 UNV Aspirin 81 mg DAILY PO 04/27/25 10:00 05/01/25 11:10 81 MG Atorvastatin Calcium 40 mg HS PO 04/28/25 22:00 05/01/25 22:10 40 MG Zolpidem Tartrate 5 mg HSPRN PRN PO 04/28/25 20:15 objective General: the patient is well developed and nourished. No acute distress. MENTAL STATUS: Awake and alert. Oriented x4 SPEECH, LANGUAGE, HIGHER CORTICAL FUNCTION: Mild dysarthria CRANIAL NERVES: Pupils are equal, round and reactive. EOMs full and conjugate. No nystagmus. Facial sensation intact in all three divisions bilaterally. Mandibular strength intact. Facial muscles symmetrical and strength intact. SENSATION: Sensation to touch and pinprick is normal. MOTOR: Normal tone in the upper and lower extremity. Normal muscle bulk. No fasciculations. No abnormal movements or posturing. Muscle strength of the major groups in the extremities is 5/5 except for 4/5 in the right arm with right upper extremity drift REFLEXES: Deep tendon reflexes normal and symmetrical. No pathological reflexes. CEREBELLAR/COORDINATION: Finger to nose is normal bilaterally. GAIT/STATION: deferred. laboratory and microbiology Laboratory Tests 04/26/25 04:00 Test 04/26/25 04:00 Range/Units Serum Glucose 84 74-106 mg/dL Problem List Bilateral leg weakness, gait disturbance, Trunk ataxia Right upper extremity weakness, expressive aphasia, dysarthria, dysphagia Acute pontine stroke COVID-19 Assessment/Plan Monitoring Supportive treatment Telemetry Aerosolized sedation Lipitor 20 mg daily (home medication, LDL does not 50) Lovenox 1 milligram/kg subQ b.i.d. D/C aspirin okay with Speech pathology on case Physical therapy Cardiology on case More recommendation per clinical course This medical document was created using an electronic medical record system with [employer] dictation system. Although this document has been carefully reviewed, there may still be some phonetic and typographical errors. These areas are purely typographical due to imperfections of the software programs, and do not reflect any compromise in the patient's medical care. Prognosis poor Dietary Evaluation Review Comments: 1) [facility] + cardiac diet 2) Refer Open Claims Representative for diabetes education Expected Outcomes/Goals: To meet >75% estimated needs Fu 3-5 days Plan discussed with: Patient, Other TAMIKO RUVALCABA MD May 02, 2025 08:53
[2025-05-02] MEDS: ATORVASTATIN 20 MG TAB PO SCH (11:46)
[2025-05-02] MEDS: ACETAMINOPHEN 325 MG TAB PO PRN (19:14)
--- NOTE | 2025-05-02 19:28 | DVHPNRES ---
Progress Note Date Seen: May 02, 2025 Resident Creating Document: DEBBY HERNANDEZ RESIDENT Medical Necessity Reason Pt with a Central, PICC or Fol: No Subjective Review of Systems A 65-year-old male with past medical history of AFib, diabetes mellitus, hypertension, and hyperlipidemia with right-sided weakness. Patient was found to be having acute pontine stroke. Patient was seen by neurologist and was started on aspirin, Plavix and statins. Patient had MARIKA done in the hospital which was within normal limits Patient seen and examined at bedside. Patient is mentioning of residual deficits on the right side but improvement. No other new complaints Objective vital signs Vital Sign Date Time Temp Pulse Resp B/P (MAP) Pulse Ox O2 Delivery O2 Flow Rate FiO2 05/02/25 19:14 101.7 05/02/25 19:14 142/96 (111) 05/02/25 16:30 84 19 97 05/02/25 08:00 Room Air* 0 21 Total Intake and Output 05/01/25 05/01/25 05/02/25 15:00 23:00 07:00 Intake Total 1000 ml 240 ml Output Total 1200 ml 650 ml Balance -200 ml -410 ml medications Current Medications Medications Dose Ordered Sig/Karthikeyan Route Start Time Stop Time Status Last Admin Dose Admin Metoprolol Tartrate 25 mg BID PO 04/25/25 22:00 05/01/25 22:10 25 MG Hydralazine HCl 10 mg Q6HP PRN IV 04/25/25 15:30 05/02/25 18:18 10 MG Diagnostic Test (Pha) 1 strip ACHS 04/25/25 17:00 05/02/25 17:00 1 STRIP Insulin Human Regular HS SC 04/25/25 22:00 05/01/25 22:14 3 UNITS Insulin Human Regular AC SC 04/25/25 17:00 05/02/25 17:13 2 UNITS Dextrose 50 ml UD PRN IV 04/25/25 15:30 Sodium Chloride 10 ml Q8HR IV 04/25/25 22:00 05/02/25 05:08 10 ML Acetaminophen/ Hydrocodone Bitart 1 tab Q4HP PRN PO 04/25/25 15:30 Ondansetron HCl 4 mg Q4HP PRN IV 04/25/25 15:30 Docusate Sodium 100 mg BIDPRN PRN PO 04/25/25 15:30 Acetaminophen 650 mg Q6HP PRN PO 04/25/25 15:30 05/02/25 19:14 650 MG Nitroglycerin 0.4 mg Q5MINP PRN SL 04/25/25 17:45 Morphine Sulfate 2 mg Q30M PRN IV 04/25/25 17:45 Lorazepam 1 mg ONCE PRN IV 04/25/25 20:45 Enoxaparin Sodium 100 mg Q12HR SC 04/25/25 22:00 05/02/25 09:47 100 MG Enoxaparin Sodium 100 mg Q12HR SC 04/25/25 22:00 UNV Aspirin 81 mg DAILY PO 04/27/25 10:00 05/02/25 09:46 81 MG Zolpidem Tartrate 5 mg HSPRN PRN PO 04/28/25 20:15 Atorvastatin Calcium 20 mg HS PO 05/02/25 09:45 05/02/25 11:46 20 MG Examination General Appearance: Alert, Oriented X3, Cooperative, No acute distress HEENT: Atraumatic, PERRLA, EOMI, Mucous membrane moist/pink Respiratory: Clear to auscultation, Normal air movement Cardiovascular: Irregularly irregular rhythm Abdominal: Normal bowel sounds, Soft, No tenderness, No hepatosplenomegaly, No masses Extremities: No clubbing, No cyanosis, No edema, Normal pulses, No tenderness/swelling Skin: No rashes, No breakdown, No significant lesion Neuro: Weakness on the right side laboratory and microbiology Laboratory Tests 04/26/25 04:00 Test 04/26/25 04:00 Range/Units Serum Glucose 84 74-106 mg/dL Labs and/or images reviewed: Labs reviewed by me, Image(s) reviewed by me Problem List/Assessment/Plan Problem List/Assessment/Plan Assessment/plan # Acute pontine stroke, right-sided deficit -aspirin, atorvastatin Neurology on board Physical therapy # A Fib Currently on Lovenox Metoprolol Cardiology following Status post MARIKA # COVID positive Asymptomatic # diabetes mellitus Sliding scale insulin # hypertension Hydralazine p.r.n. DVT prophylaxis On Lovenox Physical therapy order food services manager consulted to arrange detention facility for physical therapy Patient is currently COVID positive Awaiting SNF placement Goals of care discussed with the patient for 20 minutes; full code Case discussion with Dr. Flowers Plan discussed with: Patient, Other (Nurse) My Orders My Orders Orders - DEBBY HERNANDZE RESIDENT Procedure Category Date Status Time * Hematology/Oncology CONS 05/02/25 Transmitted Consult 12:04 Dietary Evaluation Review Comments: 1) CCHO 60gm + cardiac diet 2) Refer [employer] for diabetes education Expected Outcomes/Goals: To meet >75% estimated needs Fu 3-5 days Addendum Addendum Addendum I was physically present for the vazquez portions of the service provided to patient by THE RESIDENT. I have reviewed the documentation, discussed the case with resident and agree with the resident's documentation except as noted. Also the patient's clinical case was discussed with the patient's nurse. This medical document was created using an electronic medical record system with computerized dictation system. Although this document has been carefully reviewed, there might still be some phonetic and typographical errors. These areas are purely typographical due to imperfections of the software programs, and do not reflect any compromise in the patient's medical care. Late signature. Date of Service: May 02, 2025 Billing Provider: YASMINE FLOWERS MD Common Visit Codes: [id number] INP/OBS CARE(HIGH) Secondary Visit Codes: [id number] CARE PLAN 30 MINUTES (20 minutes) DEBBY HERNANDEZ RESIDENT May 02, 2025 19:28 YASMINE FLOWERS MD May 03, 2025 08:50
[2025-05-03] VITALS (8 sets, daily range): BP systolic 121–156; BP diastolic 62–93; PULSE 54–85; RESP 16–18; TEMP 97.8–99.1; O2SAT 96–98
[2025-05-03] MEDS ORDERED: ACETAMINOPHEN 325 MG TAB PO PRN (09:45)
[2025-05-03 11:08] LABS: Hematocrit 42.1 % (41.0-53.0); Hemoglobin 14.6 g/dL (13.5-17.5); Mean Corpuscular Hemoglobin 33.0 pg (28.0-32.0); Mean Corpuscular Volume 95.4 fL (80.0-100.0); Nucleated Red Blood Cells % 0.2 %
[2025-05-03 11:19] LABS: Chloride 104 mmol/L (98-107); Potassium 3.9 mmol/L (3.5-5.1); Sodium 140 mmol/L (136-145)
[2025-05-03 11:20] LABS: Anion Gap 7 (5-15); Calcium 10.0 mg/dL (8.7-10.4); Carbon Dioxide 29 mmol/L (20-31)
[2025-05-03 11:25] LABS: BUN/Creatinine Ratio 9.7 (10.0-20.0); Blood Urea Nitrogen 9 mg/dL (9-23)
[2025-05-03 11:26] LABS: Glucose 155 mg/dL (74-106); Magnesium 2.1 mg/dL (1.6-2.6)
[2025-05-03] MEDS: THROAT LOZENGES(CEPASTAT) MT PRN (12:41)
--- NOTE | 2025-05-03 18:59 | DVHPNRES ---
Progress Note Date Seen: May 03, 2025 Resident Creating Document: DEBBY HERNANDEZ RESIDENT Medical Necessity Reason Pt with a Central, PICC or Fol: No Subjective Review of Systems A 65-year-old male with past medical history of AFib, diabetes mellitus, hypertension, and hyperlipidemia with right-sided weakness. Patient was found to be having acute pontine stroke. Patient was seen by neurologist and was started on aspirin, Plavix and statins. Patient had MARIKA done in the hospital which was within normal limits Patient seen and examined at bedside. Patient is mentioning of residual deficits on the right side but improvement. Has sore throat but no other symptoms. Objective vital signs Vital Sign Date Time Temp Pulse Resp B/P (MAP) Pulse Ox O2 Delivery O2 Flow Rate FiO2 05/03/25 16:31 98.4 57 17 146/79 (101) 98 98.4 05/03/25 08:00 Room Air* 0 21 Total Intake and Output 05/02/25 05/02/25 05/03/25 15:00 23:00 07:00 Intake Total 300 ml 200 ml Output Total 500 ml Balance -200 ml 200 ml medications Current Medications Medications Dose Ordered Sig/Karthikeyan Route Start Time Stop Time Status Last Admin Dose Admin Metoprolol Tartrate 25 mg BID PO 04/25/25 22:00 05/03/25 08:01 25 MG Hydralazine HCl 10 mg Q6HP PRN IV 04/25/25 15:30 05/02/25 18:18 10 MG Diagnostic Test (Pha) 1 strip ACHS 04/25/25 17:00 05/03/25 17:00 1 STRIP Insulin Human Regular HS SC 04/25/25 22:00 05/02/25 21:54 3 UNITS Insulin Human Regular AC SC 04/25/25 17:00 05/03/25 17:56 2 UNITS Dextrose 50 ml UD PRN IV 04/25/25 15:30 Sodium Chloride 10 ml Q8HR IV 04/25/25 22:00 05/03/25 05:23 10 ML Acetaminophen/ Hydrocodone Bitart 1 tab Q4HP PRN PO 04/25/25 15:30 Ondansetron HCl 4 mg Q4HP PRN IV 04/25/25 15:30 Docusate Sodium 100 mg BIDPRN PRN PO 04/25/25 15:30 Nitroglycerin 0.4 mg Q5MINP PRN SL 04/25/25 17:45 Morphine Sulfate 2 mg Q30M PRN IV 04/25/25 17:45 Lorazepam 1 mg ONCE PRN IV 04/25/25 20:45 Enoxaparin Sodium 100 mg Q12HR SC 04/25/25 22:00 05/03/25 08:03 100 MG Enoxaparin Sodium 100 mg Q12HR SC 04/25/25 22:00 UNV Aspirin 81 mg DAILY PO 04/27/25 10:00 05/03/25 08:02 81 MG Zolpidem Tartrate 5 mg HSPRN PRN PO 04/28/25 20:15 Atorvastatin Calcium 20 mg HS PO 05/02/25 09:45 05/02/25 21:37 20 MG Acetaminophen 650 mg Q6HP PRN PO 05/03/25 09:45 Throat Lozenges 1 pritesh Q2HP PRN MT 05/03/25 09:45 05/03/25 17:56 1 PRITESH Examination General Appearance: Alert, Oriented X3, Cooperative, No acute distress HEENT: Atraumatic, PERRLA, EOMI, Mucous membrane moist/pink Respiratory: Clear to auscultation, Normal air movement Cardiovascular: Irregularly irregular rhythm Abdominal: Normal bowel sounds, Soft, No tenderness, No hepatosplenomegaly, No masses Extremities: No clubbing, No cyanosis, No edema, Normal pulses, No tenderness/swelling Skin: No rashes, No breakdown, No significant lesion Neuro: Weakness on the right side laboratory and microbiology Laboratory Tests 05/03/25 11:00 Test 05/03/25 11:00 Range/Units Serum Glucose 155 H 74-106 mg/dL Labs and/or images reviewed: Labs reviewed by me, Image(s) reviewed by me Problem List/Assessment/Plan Problem List/Assessment/Plan Assessment/plan # acute pontine stroke, right-sided deficit -aspirin, atorvastatin Neurology on board Physical therapy # AFib Currently on Lovenox Metoprolol Cardiology following Status post MARIKA # COVID positive Asymptomatic acetaminophen PRN lozenges for throat pain # diabetes mellitus Sliding scale insulin # hypertension Hydralazine p.r.n. DVT prophylaxis On Lovenox Physical therapy order director human services consulted to arrange senior living facility for physical therapy Patient is currently COVID positive Awaiting SNF placement Case discussion with Dr. Flowers Plan discussed with: Patient, Other (Nurse) My Orders My Orders Orders - DEBBY HERNANDEZ RESIDENT Procedure Category Date Status Time Acetaminophen Tablet PHA 05/03/25 In Process (Tylenol Tablet) 09:45 Throat Lozenges PHA 05/03/25 In Process (Cepastat Lozenges) 09:45 Dietary Evaluation Review Comments: 1) CCHO 60gm + cardiac diet 2) Refer Charge Hand for diabetes education Expected Outcomes/Goals: To meet >75% estimated needs Fu 3-5 days Addendum Addendum Addendum I was physically present for the vazquez portions of the service provided to patient by THE RESIDENT. I have reviewed the documentation, discussed the case with resident and agree with the resident's documentation except as noted. Also the patient's clinical case was discussed with the patient's nurse. This medical document was created using an electronic medical record system with computerized dictation system. Although this document has been carefully reviewed, there might still be some phonetic and typographical errors. These areas are purely typographical due to imperfections of the software programs, and do not reflect any compromise in the patient's medical care. Late signature. Date of Service: May 03, 2025 Billing Provider: YASMINE FLOWERS MD Common Visit Codes: [id number] INP/OBS CARE(HIGH) DEBBY HERNANDEZ RESIDENT May 03, 2025 18:59 YASMINE FLOWERS MD May 04, 2025 21:31
[2025-05-04] VITALS (8 sets, daily range): BP systolic 119–138; BP diastolic 63–88; PULSE 51–70; RESP 16–22; TEMP 97.4–98.8; O2SAT 97
--- NOTE | 2025-05-04 09:59 | DVHPNRES ---
Progress Note Date Seen: May 04, 2025 Resident Creating Document: DEBBY HERNANDEZ RESIDENT Medical Necessity Reason Pt with a Central, PICC or Fol: No Subjective Review of Systems A 65-year-old male with past medical history of AFib, diabetes mellitus, hypertension, and hyperlipidemia with right-sided weakness. Patient was found to be having acute pontine stroke. Patient was seen by neurologist and was started on aspirin, Plavix and statins. Patient had MARIKA done in the hospital which was within normal limits Patient seen and examined at bedside. Patient is mentioning of residual deficits on the right side but improving with PT; mentions sore throat improving, no cough Objective vital signs Vital Sign Date Time Temp Pulse Resp B/P (MAP) Pulse Ox O2 Delivery O2 Flow Rate FiO2 05/04/25 08:00 57 16 97 Room Air* 0 21 05/04/25 05:00 98.8 119/63 (81) 98.8 Total Intake and Output 05/03/25 05/03/25 05/04/25 15:00 23:00 07:00 Intake Total 880 ml 800 ml Balance 880 ml 800 ml medications Current Medications Medications Dose Ordered Sig/Karthikeyan Route Start Time Stop Time Status Last Admin Dose Admin Metoprolol Tartrate 25 mg BID PO 04/25/25 22:00 05/03/25 21:22 25 MG Hydralazine HCl 10 mg Q6HP PRN IV 04/25/25 15:30 05/02/25 18:18 10 MG Diagnostic Test (Pha) 1 strip ACHS 04/25/25 17:00 05/04/25 05:13 1 STRIP Insulin Human Regular HS SC 04/25/25 22:00 05/03/25 21:23 3 UNITS Insulin Human Regular AC SC 04/25/25 17:00 05/04/25 05:14 2 UNITS Dextrose 50 ml UD PRN IV 04/25/25 15:30 Sodium Chloride 10 ml Q8HR IV 04/25/25 22:00 05/04/25 05:15 10 ML Acetaminophen/ Hydrocodone Bitart 1 tab Q4HP PRN PO 04/25/25 15:30 Ondansetron HCl 4 mg Q4HP PRN IV 04/25/25 15:30 Docusate Sodium 100 mg BIDPRN PRN PO 04/25/25 15:30 Nitroglycerin 0.4 mg Q5MINP PRN SL 04/25/25 17:45 Morphine Sulfate 2 mg Q30M PRN IV 04/25/25 17:45 Lorazepam 1 mg ONCE PRN IV 04/25/25 20:45 Enoxaparin Sodium 100 mg Q12HR SC 04/25/25 22:00 05/03/25 21:22 100 MG Enoxaparin Sodium 100 mg Q12HR SC 04/25/25 22:00 UNV Aspirin 81 mg DAILY PO 04/27/25 10:00 05/03/25 08:02 81 MG Zolpidem Tartrate 5 mg HSPRN PRN PO 04/28/25 20:15 Atorvastatin Calcium 20 mg HS PO 05/02/25 09:45 05/03/25 21:21 20 MG Acetaminophen 650 mg Q6HP PRN PO 05/03/25 09:45 Throat Lozenges 1 pritesh Q2HP PRN MT 05/03/25 09:45 05/03/25 17:56 1 PRITESH Examination General Appearance: Alert, Oriented X3, Cooperative, No acute distress HEENT: Atraumatic, PERRLA, EOMI, Mucous membrane moist/pink Respiratory: Clear to auscultation, Normal air movement Cardiovascular: Irregularly irregular rhythm Abdominal: Normal bowel sounds, Soft, No tenderness, No hepatosplenomegaly, No masses Extremities: No clubbing, No cyanosis, No edema, Normal pulses, No tenderness/swelling Skin: No rashes, No breakdown, No significant lesion Neuro: Weakness on the right side, improving laboratory and microbiology Laboratory Tests 05/03/25 11:00 Test 05/03/25 11:00 Range/Units Serum Glucose 155 H 74-106 mg/dL Labs and/or images reviewed: Labs reviewed by me, Image(s) reviewed by me Problem List/Assessment/Plan Problem List/Assessment/Plan Assessment/plan # acute pontine stroke, right-sided deficit -aspirin, atorvastatin Neurology on board Physical therapy # AFib Currently on Lovenox Metoprolol Cardiology following Status post MARIKA # COVID positive Asymptomatic acetaminophen PRN lozenges for throat pain # diabetes mellitus Sliding scale insulin # hypertension Hydralazine p.r.n. DVT prophylaxis On Lovenox Physical therapy order information services tech consulted to arrange senior living facility for physical therapy Patient is currently COVID positive Awaiting SNF placement Case discussion with Dr. Flowers Plan discussed with: Patient, Other (RN) Dietary Evaluation Review Comments: 1) CCHO 60gm + cardiac diet 2) Refer N[employer] Technician for diabetes education Expected Outcomes/Goals: To meet >75% estimated needs Fu 3-5 days Addendum Addendum Addendum I was physically present for the vazquez portions of the service provided to patient by THE RESIDENT. I have reviewed the documentation, discussed the case with resident and agree with the resident's documentation except as noted. Also the patient's clinical case was discussed with the patient's nurse. This medical document was created using an electronic medical record system with computerized dictation system. Although this document has been carefully reviewed, there might still be some phonetic and typographical errors. These areas are purely typographical due to imperfections of the software programs, and do not reflect any compromise in the patient's medical care. Late signature. Date of Service: May 04, 2025 Billing Provider: YASMINE FLOWERS MD Common Visit Codes: [id number] INP/OBS CARE(HIGH) DEBBY HERNANDEZ RESIDENT May 04, 2025 09:59 YASMINE FLOWERS MD May 04, 2025 22:39
--- NOTE | 2025-05-04 11:24 | DVHPN2 ---
Progress Note - Dictate Date Seen: May 04, 2025 Medical Necessity Reason Pt with a Central, PICC or Fol: No Subjective Mr. Romero is a 65 years old not sure left-handed gentleman with a history of hypertension, diabetes, atrial fibrillation, he came to the [facility] on 04/25/2025 with a chief complaint of general weakness. I have seen examined the patient, talked to his nurse, he is doing fine, he keeps improving slowly, speech much better He can walk with holding the walker in his hands UDS, 04/25/2025: Negative Urinalysis, 04/25/2025: WBC: 46, urine leukocyte esterase: Negative SARS-CoV-2 antigen, 05/02/2025: Positive CBC, 04/25/2025: Unremarkable BMP 04/25/2025: Unremarkable HGB A1c, 03/19/2025: 6.3 TBI/AST/ALT/AP, 03/20/2025: 1/9//110/72 TG/HDL/LDL/HDL, 04/25/25: 78/120/46/50, 04/26/2025: 77/105/38/44 Echocardiogram, 04/24/2025: LV EF IS 69% AND IS NORMAL SLIGHTLY DILATED RV,RA AND LA NORMAL VALVES NO EFFUSION MARIKA, 04/29/2025: Normal MARIKA Carotid Doppler, 04/25/2025: 1. No hemodynamically significant stenosis noted in the right carotid system. 2. No hemodynamically significant stenosis noted in the left carotid system. CT head, 04/25/2025: 1. Mild chronic ischemic changes without evidence of acute intracranial process. 2. Bilateral maxillary sinus disease MRI head, 04/26/2025: 1. Acute/ subacute left pontine infarct. Clinical correlation and continued follow-up is recommended. 2. Mild changes of chronic microvascular ischemic disease. Mild paranasal sinus disease. vital signs Vital Sign Date Time Temp Pulse Resp B/P (MAP) Pulse Ox O2 Delivery O2 Flow Rate FiO2 05/04/25 10:43 65 133/73 05/04/25 09:00 97.8 16 97 97.8 05/04/25 08:00 Room Air* 0 21 Total Intake and Output 05/03/25 05/03/25 05/04/25 15:00 23:00 07:00 Intake Total 880 ml 800 ml Balance 880 ml 800 ml medications Current Medications Medications Dose Ordered Sig/Karthikeyan Route Start Time Stop Time Status Last Admin Dose Admin Metoprolol Tartrate 25 mg BID PO 04/25/25 22:00 05/04/25 10:43 25 MG Hydralazine HCl 10 mg Q6HP PRN IV 04/25/25 15:30 05/02/25 18:18 10 MG Diagnostic Test (Pha) 1 strip ACHS 04/25/25 17:00 05/04/25 05:13 1 STRIP Insulin Human Regular HS SC 04/25/25 22:00 05/03/25 21:23 3 UNITS Insulin Human Regular AC SC 04/25/25 17:00 05/04/25 05:14 2 UNITS Dextrose 50 ml UD PRN IV 04/25/25 15:30 Sodium Chloride 10 ml Q8HR IV 04/25/25 22:00 05/04/25 05:15 10 ML Acetaminophen/ Hydrocodone Bitart 1 tab Q4HP PRN PO 04/25/25 15:30 Ondansetron HCl 4 mg Q4HP PRN IV 04/25/25 15:30 Docusate Sodium 100 mg BIDPRN PRN PO 04/25/25 15:30 Nitroglycerin 0.4 mg Q5MINP PRN SL 04/25/25 17:45 Morphine Sulfate 2 mg Q30M PRN IV 04/25/25 17:45 Lorazepam 1 mg ONCE PRN IV 04/25/25 20:45 Enoxaparin Sodium 100 mg Q12HR SC 04/25/25 22:00 05/03/25 21:22 100 MG Enoxaparin Sodium 100 mg Q12HR SC 04/25/25 22:00 UNV Aspirin 81 mg DAILY PO 04/27/25 10:00 05/04/25 10:43 81 MG Zolpidem Tartrate 5 mg HSPRN PRN PO 04/28/25 20:15 Atorvastatin Calcium 20 mg HS PO 05/02/25 09:45 05/03/25 21:21 20 MG Acetaminophen 650 mg Q6HP PRN PO 05/03/25 09:45 Throat Lozenges 1 pritesh Q2HP PRN MT 05/03/25 09:45 05/03/25 17:56 1 PRITESH objective General: the patient is well developed and nourished. No acute distress. MENTAL STATUS: Awake and alert. Oriented x4 SPEECH, LANGUAGE, HIGHER CORTICAL FUNCTION: Mild dysarthria CRANIAL NERVES: Pupils are equal, round and reactive. EOMs full and conjugate. No nystagmus. Facial sensation intact in all three divisions bilaterally. Mandibular strength intact. Facial muscles symmetrical and strength intact. SENSATION: Sensation to touch and pinprick is normal. MOTOR: Normal tone in the upper and lower extremity. Normal muscle bulk. No fasciculations. No abnormal movements or posturing. Muscle strength of the major groups in the extremities is 5/5 except for 4/5 in the right arm with right upper extremity drift REFLEXES: Deep tendon reflexes normal and symmetrical. No pathological reflexes. CEREBELLAR/COORDINATION: Finger to nose is normal bilaterally. GAIT/STATION: deferred. laboratory and microbiology Laboratory Tests 05/03/25 11:00 Test 05/03/25 11:00 Range/Units Serum Glucose 155 H 74-106 mg/dL Problem List Bilateral leg weakness, gait disturbance, Trunk ataxia Right upper extremity weakness, expressive aphasia, dysarthria, dysphagia Acute pontine stroke COVID-19 Assessment/Plan Monitoring Supportive treatment Telemetry Aerosolized sedation Lipitor 20 mg daily (home medication, LDL does not 50) Lovenox 1 milligram/kg subQ b.i.d. D/C aspirin okay with Speech pathology on case Physical therapy Cardiology on case More recommendation per clinical course This medical document was created using an electronic medical record system with [employer] dictation system. Although this document has been carefully reviewed, there may still be some phonetic and typographical errors. These areas are purely typographical due to imperfections of the software programs, and do not reflect any compromise in the patient's medical care. Prognosis poor Dietary Evaluation [facility] Comments: [facility] 2) Refer Parts Counter Specialist for diabetes education Expected Outcomes/Goals: To meet >75% estimated needs Fu 3-5 days Plan discussed with: Patient, Other TAMIKO RUVALCABA MD May 04, 2025 11:24
[2025-05-04] MEDS ORDERED: ASPI-325 PO (14:36)
--- NOTE | 2025-05-04 16:17 | DVHDSRES ---
Discharge Summary Date of Admission Resident Creating Document: DEBBY HERNANDEZ RESIDENT Apr 25, 2025 at 17:32 Date of Discharge: May 05, 2025 (Planned discharge was on May 04, 2025) Admitting Diagnosis Right-sided weakness Labs/Diagnostic Data: Laboratory Results Test 05/04/25 10:49 05/03/25 11:00 05/02/25 02:10 05/01/25 01:30 POC Glucose 173 mg/dl (70-106) White Blood Count 4.0 10^3/uL (4.4-10.8) Red Blood Count 4.42 10^6/uL (4.5-5.90) Hemoglobin 14.6 g/dL (13.5-17.5) Hematocrit 42.1 % (41.0-53.0) Mean Corpuscular Volume 95.4 fL (80.0-100.0) Mean Corpuscular Hemoglobin 33.0 pg (28.0-32.0) Mean Corpuscular Hemoglobin Concent 34.6 g/dL (32.0-36.0) Red Cell Distribution Width 14.7 % (11.8-14.3) Platelet Count 116 10^3/uL (140-450) Mean Platelet Volume 8.3 fL (6.9-10.8) Neutrophils (%) (Auto) 66.8 % (37.0-80.0) Lymphocytes (%) (Auto) 15.3 % (10.0-50.0) Monocytes (%) (Auto) 16.6 % (0.0-12.0) Eosinophils (%) (Auto) 0.7 % (0.0-7.0) Basophils (%) (Auto) 0.6 % (0.0-2.0) Neutrophils # (Auto) 2.7 10 ^3/uL (1.6-8.6) Lymphocytes # (Auto) 0.6 10 ^3/uL (0.4-5.4) Monocytes # (Auto) 0.7 10 ^3/uL (0-1.3) Eosinophils # (Auto) 0 10 ^3/uL (0-0.8) Basophils # (Auto) 0 10 ^3/uL (0-0.2) Nucleated Red Blood Cells 0.2 % Sodium Level 140 mmol/L (136-145) Potassium Level 3.9 mmol/L (3.5-5.1) Chloride Level 104 mmol/L (98-107) Carbon Dioxide Level 29 mmol/L (20-31) Anion Gap 7 (5-15) Blood Urea Nitrogen 9 mg/dL (9-23) Creatinine 0.93 mg/dL (0.700-1.30) Glomerular Filtration Rate Calc 90 mL/min (>90) BUN/Creatinine Ratio 9.7 (10.0-20.0) Serum Glucose 155 mg/dL (74-106) Calcium Level 10.0 mg/dL (8.7-10.4) Magnesium Level 2.1 mg/dL (1.6-2.6) Influenza Type A Antigen Negative (Negative) Influenza Type B Antigen Negative (Negative) SARS-CoV-2 Antigen (Rapid) Positive (NEGATIVE) Urine Color Yellow (Yellow) Urine Clarity Clear (Clear) Urine pH 6.0 (5.0-9.0) Urine Specific [place] 1.026 (1.001-1.035) Urine Protein Negative (Negative) Urine Ketones Negative (Negative) Urine Blood Negative /uL (Negative) Urine Nitrite Negative (Negative) Urine Bilirubin Negative (Negative) Urine Urobilinogen 8 mg/dL (Negative) Urine Leukocyte Esterase Negative /uL (Negative) Urine RBC 1 /hpf (0 - 3) Urine Microscopic WBC 2 /HPF (0-3) Urine Squamous Epithelial Cells None seen /hpf (<5) Urine Calcium Oxalate Crystals Few (None Seen) Urine Amorphous Crystals Few /hpf (None Seen) Urine Bacteria None seen /hpf (None Seen) Urine Glucose 3+ mg/dL (Normal) Test 04/29/25 01:37 04/26/25 06:16 04/26/25 04:00 04/25/25 13:57 Prothrombin Time 11.3 sec (9.3-11.8) Prothrombin Time INR 1.07 (0.9-1.15) Activated Partial Thromboplast Time 31.3 SEC (24.5-34.5) Triglycerides Level 77 mg/dL (< 150) Cholesterol Level 105 mg/dL (< 200) LDL Cholesterol 38 mg/dL (< 100) HDL Cholesterol 44 mg/dL (40-59) Total Bilirubin 0.9 mg/dL (0.2-1.0) Aspartate Amino Transferase (AST) 29 U/L (13-40) Alanine Aminotransferase (ALT) 38 U/L (7-40) Alkaline Phosphatase 53 U/L (46-116) Total Protein 5.7 g/dL (5.7-8.2) Albumin 4.0 g/dL (3.2-4.8) Troponin I High Sensitivity 3 ng/L (</=54) Test 04/25/25 12:48 04/25/25 12:03 B-Type Natriuretic Peptide 32.96 pg/mL (0-100) Urine Mucus Few (None Seen) Urine Opiates Screen Neg (NEGATIVE) Urine Fentanyl Screen Neg (NEGATIVE) Urine Barbiturates Screen Neg (NEGATIVE) Urine Phencyclidine Screen Neg (NEGATIVE) Urine Amphetamines Screen Neg (NEGATIVE) Urine Benzodiazepines Screen Neg (NEGATIVE) Urine Cocaine Screen Neg (NEGATIVE) Urine Cannabinoids Screen Neg (NEGATIVE) Other Laboratory Tests 05/03/25 11:00 Brief Hx & Hospital Course: A 65-year-old male with past medical history of AFib on Eliquis, diabetes mellitus, hypertension and hyperlipidemia presented with right-sided weakness. Patient reports symptoms progressively get worse with slurred speech for the past 2 days, right facial droop, difficulty ambulating, getting worse that prompted this visit. Head CT showed 1. Mild chronic ischemic changes without evidence of acute intracranial process. 2. Bilateral maxillary sinus disease. Later MRI was done showed Acute/ subacute left pontine infarct. Neurology was consulted and patient was started on Lovenox 1 milligram/kg b.i.d. subcutaneous for AFib and and later in the hospital aspirin was started. Further evaluation for stroke considering history of AFib, Cardiology was consulted. Patient had MARIKA which was within normal limits. Cardiology recommended evaluation by Heme- Onc. Physical Therapy was started. Patient had improvement in his weakness. Discharge plan was discussed with the patient and patient decided to go to care home facility for rehabilitation. Patient had COVID positive in the hospital. When bed is available at SNF; the patient will be transferred to care home facility with continuation of hospital medications as per the discharge paperwork. Discussed with Dr. Flowers Consults/Reason for consult Neurology consult for stroke Cardiology consult for MARIKA Heme-Onc consult for hypercoagulable state evaluation Operations or Procedures Patient: YAN RIBEIRO Acct: [id number] : 1960 Loc: [facility] Age/Sex: 65/M Room: 0295T / Bed: B Attending Phy: JANNIE IZAGUIRRE DO Operative Report - 2 Report Details Date: 04/29/25 Preop Diagnosis: CVA rule out atrial thrombus Postop Diagnosis: Normal MARIKA Surgeon: Tim Bae MD Anesthesiologist: Conscious sedation Anesthesia: Mac, Local Consent: The patient was informed of the risks and benefits of the procedure. These include but are not limited to complications of anesthesia, postoperative infection, incomplete relief of symptoms, recurrence of symptoms, damage to blood vessels, nerves and tendons, deep venous thrombosis, pulmonary embolism and possible need for repeat surgery in the future. Complications: No complications Findings: Normal MARIKA Indications for Surgery: CVA Name of Procedure Performed Transesophageal echocardiogram Procedure Details Procedure Details: Prior full informed consent obtained the patient was placed in left lateral decubitus and semi-Diaz position. Lidocaine gel was given to gargle. A transesophageal probe was passed after conscious sedation given. Standard views were obtained with a transesophageal echocardiographic probe. No complications. Findings: Technically good study. Normal chamber sizes. Valves appear to be structurally normal without intrinsic defects. Normal aortic mitral tricuspid and pulmonic valves. Left ventricular systolic performance is preserved. EF is about 60% with normal right ventricular function. Doppler reveals mild tricuspid and aortic insufficiency. Trace mitral insufficiency. No pericardial effusion. No masses or vegetations discernible. The left atrial appendage is clean and normal. Bubble study does not reveal crossover. Condition Good [place] [id number] Ph: [phone] DIAGNOSTIC IMAGING Diagnostic Imaging Report : [id number] Signed PATIENT: YAN RIBEIRO ACCT: [id number] UNIT: [id number] : 1960 LOC: [facility] ROOM / BED: [facility] / AGE / SEX: 65 / M ADM STATUS: ADM IN SERVICE 34 ORDERING PHYSICIAN: TAMIKO RUVALCABA MD PROCEDURE(s): [facility] - BRAIN HEAD WO CONTRAST REASON: cva ORDER NUMBER(s): [id number], ACCESSION NUMBER(s): [id number] PROCEDURE: MRI BRAIN HEAD WO CONTRAST INDICATION: cva EXAM DATE: 04/26/2025 09:00 AM COMPARISON: None TECHNIQUE: MRI of the brain without intravenous contrast. FINDINGS: Restricted diffusion in the left destiny with associated FLAIR signal abnormality consistent with an acute/subacute infarct. There is no evidence of acute intracranial hemorrhage, extra-axial collection, mass effect, midline shift, herniation or hydrocephalus. The ventricles, sulci and cisterns appear age appropriate. Mild changes of chronic microvascular ischemic disease. There are no signal abnormalities on the susceptibility weighted sequences. The major vascular flow voids are present. Mucous retention cyst in the left maxillary sinus. The surrounding soft tissues and osseous structures are unremarkable. IMPRESSION: 1. Acute/ subacute left pontine infarct. Clinical correlation and continued follow-up is recommended. 2. Mild changes of chronic microvascular ischemic disease. Mild paranasal sinus disease. Critical Result: Stroke Alert Findings conveyed to the referring physician by the [facility] Radiology client support professional at 04/26/2025 09:43 AM, and acknowledged receipt and understanding of the findings. HS:Y ATED BY: TYLER SANCHEZ MD DICTATED DATE/TIME: 04/26/25944 SIGNED BY: TYLER SANCHEZ MD SIGNED DATE/TIME: 04/26/25944 Condition at Discharge: Stable Final Diagnosis/Problems List # acute pontine stroke, right-sided deficit # AFib # COVID positive # diabetes mellitus # hypertension Discharge Disposition: Half-Way Facility Discharge Instruct/Medications Diet: Cardiac 2g Na,low cholest Activity: No Restrictions, As Tolerated Follow Up/Referral: f/u with PCP within 1 week f/u with Neurology within 1-2 weeks f/u with Hem/onc within 1-2 weeks Medications: continue hospital meds at SNF as per discharge paperwork Scheduled Apixaban Base (Eliquis), 1 TAB PO BID, (Reported) Aspirin (Aspirin Low Dose), 81 MG PO DAILY Atorvastatin Calcium (Lipitor), 20 MG PO HS, (Reported) Diltiazem HCl Coated Beads (Cardizem Cd), 120 MG PO DAILY Metformin Hydrochloride (Metformin Hcl), 1 TAB PO BID, (Reported) Metoprolol Succinate (Metoprolol Succinate Er), 1 TAB PO DAILY, (Reported) Discharge Statement: "Patient was advised to return to the ER or call 911 if any headaches, dizziness, shortness of breath, chest pain, abdominal pain, bleeding, fevers, or worsening of medical condition. Patient was counseled about treatment plan, medications, possible side effects, patientverbalized understanding. All questions were answered to the best of my ability. This discharge took greater then 30 minutes in planning, reviewing documentation, counseling the patient, and discussing with other team members." ASSESSMENT ASSESSMENT Assessment acute stroke Addendum Addendum Addendum I was physically present for the vazquez portions of the service provided to patient by THE RESIDENT. I have reviewed the documentation, discussed the case with resident and agree with the resident's documentation except as noted. Also the patient's clinical case was discussed with the patient's nurse. This medical document was created using an electronic medical record system with computerized dictation system. Although this document has been carefully reviewed, there might still be some phonetic and typographical errors. These areas are purely typographical due to imperfections of the software programs, and do not reflect any compromise in the patient's medical care. Late signature. Date of Service: May 04, 2025 Billing Provider: YASMINE FLOWERS MD Common Visit Codes: NOT BILLABLE (The patient was not discharged as planned on May 04, 2025; there [place] [id number] on May 04, 2025) DEBBY HERNANDEZ RESIDENT May 04, 2025 16:17 YASMINE FLOWERS MD May 04, 2025 22:43
[2025-05-05] VITALS (8 sets, daily range): BP systolic 126–143; BP diastolic 68–76; PULSE 47–61; RESP 16–22; TEMP 97.8–98.6; O2SAT 96–99
--- NOTE | 2025-05-05 20:12 | DVHPNRES ---
Progress Note Date Seen: May 05, 2025 Resident Creating Document: DEBBY HERNANDEZ RESIDENT Medical Necessity Reason Pt with a Central, PICC or Fol: No Subjective Review of Systems A 65-year-old male with past medical history of AFib, diabetes mellitus, hypertension, and hyperlipidemia with right-sided weakness. Patient was found to be having acute pontine stroke. Patient was seen by neurologist and was started on aspirin, Plavix and statins. Patient had MARIKA done in the hospital which was within normal limits Patient seen and examined at bedside. Patient is mentioning of residual deficits on the right side but improving with PT; mentions sore throat improving, no cough. Awaiting snf facility placement Objective vital signs Vital Sign Date Time Temp Pulse Resp B/P (MAP) Pulse Ox O2 Delivery O2 Flow Rate FiO2 05/05/25 16:34 97.8 54 16 138/76 (96) 98 97.8 05/05/25 08:00 Room Air* 0 21 Total Intake and Output 05/04/25 05/04/25 05/05/25 15:00 23:00 07:00 Intake Total 750 ml 950 ml Balance 750 ml 950 ml medications Current Medications Medications Dose Ordered Sig/Karthikeyan Route Start Time Stop Time Status Last Admin Dose Admin Metoprolol Tartrate 25 mg BID PO 04/25/25 22:00 05/04/25 21:04 25 MG Hydralazine HCl 10 mg Q6HP PRN IV 04/25/25 15:30 05/02/25 18:18 10 MG Diagnostic Test (Pha) 1 strip ACHS 04/25/25 17:00 05/05/25 17:21 1 STRIP Insulin Human Regular HS SC 04/25/25 22:00 05/04/25 21:28 3 UNITS Insulin Human Regular AC SC 04/25/25 17:00 05/05/25 17:00 3 UNITS Dextrose 50 ml UD PRN IV 04/25/25 15:30 Sodium Chloride 10 ml Q8HR IV 04/25/25 22:00 05/05/25 14:00 10 ML Ondansetron HCl 4 mg Q4HP PRN IV 04/25/25 15:30 Docusate Sodium 100 mg BIDPRN PRN PO 04/25/25 15:30 Nitroglycerin 0.4 mg Q5MINP PRN SL 04/25/25 17:45 Lorazepam 1 mg ONCE PRN IV 04/25/25 20:45 Enoxaparin Sodium 100 mg Q12HR SC 04/25/25 22:00 05/05/25 10:16 100 MG Enoxaparin Sodium 100 mg Q12HR SC 04/25/25 22:00 UNV Aspirin 81 mg DAILY PO 04/27/25 10:00 05/05/25 10:15 81 MG Zolpidem Tartrate 5 mg HSPRN PRN PO 04/28/25 20:15 Acetaminophen 650 mg Q6HP PRN PO 05/03/25 09:45 Throat Lozenges 1 pritesh Q2HP PRN MT 05/03/25 09:45 05/04/25 17:01 1 PRITESH Atorvastatin Calcium 20 mg HS PO 05/05/25 22:00 Examination General Appearance: Alert, Oriented X3, Cooperative, No acute distress HEENT: Atraumatic, PERRLA, EOMI, Mucous membrane moist/pink Respiratory: Clear to auscultation, Normal air movement Cardiovascular: Irregularly irregular rhythm Abdominal: Normal bowel sounds, Soft, No tenderness, No hepatosplenomegaly, No masses Extremities: No clubbing, No cyanosis, No edema, Normal pulses, No tenderness/swelling Skin: No rashes, No breakdown, No significant lesion Neuro: Weakness on the right side, improving laboratory and microbiology Laboratory Tests 05/03/25 11:00 Test 05/03/25 11:00 Range/Units Serum Glucose 155 H 74-106 mg/dL Labs and/or images reviewed: Labs reviewed by me, Image(s) reviewed by me Problem List/Assessment/Plan Problem List/Assessment/Plan Assessment/plan # Acute pontine stroke, right-sided deficit -aspirin, atorvastatin Neurology on board Physical therapy # AFib Currently on Lovenox Metoprolol Cardiology following Status post MARIKA # COVID positive Asymptomatic acetaminophen PRN lozenges for throat pain # diabetes mellitus Sliding scale insulin # hypertension Hydralazine p.r.n. DVT prophylaxis On Lovenox Physical therapy order custodial services manager consulted to arrange snf facility for physical therapy Awaiting SNF placement Case discussion with Dr. Flowers Plan discussed with: Patient, Other (Nurse) Dietary Evaluation [facility] Comments: [facility] 2) Refer Supervisor [employer] for diabetes education Expected Outcomes/Goals: To meet >75% estimated needs Fu 3-5 days Addendum Addendum Addendum I was physically present for the vazquez portions of the service provided to patient by THE RESIDENT. I have reviewed the documentation, discussed the case with resident and agree with the resident's documentation except as noted. Also the patient's clinical case was discussed with the patient's nurse. This medical document was created using an electronic medical record system with computerized dictation system. Although this document has been carefully reviewed, there might still be some phonetic and typographical errors. These areas are purely typographical due to imperfections of the software programs, and do not reflect any compromise in the patient's medical care. Late signature. Date of Service: May 05, 2025 Billing Provider: YASMINE FLOWERS MD Common Visit Codes: [id number] INP/OBS CARE(MOD) DEBBY HERNANDEZ RESIDENT May 05, 2025 20:12 YASMINE FLOWERS MD May 06, 2025 12:00
[2025-05-05] MEDS: ATORVASTATIN 20 MG TAB PO SCH (21:59)
[2025-05-06] VITALS (8 sets, daily range): BP systolic 115–159; BP diastolic 65–88; PULSE 51–60; RESP 16–17; TEMP 97.3–98.4; O2SAT 97–99
--- NOTE | 2025-05-06 10:14 | DVHPNRES ---
Progress Note Date Seen: May 06, 2025 Resident Creating Document: DEBBY HERNANDEZ RESIDENT Medical Necessity Reason Pt with a Central, PICC or Fol: No Subjective Review of Systems A 65-year-old male with past medical history of AFib, diabetes mellitus, hypertension, and hyperlipidemia with right-sided weakness. Patient was found to be having acute pontine stroke. Patient was seen by neurologist and was started on aspirin, Plavix and statins. Patient had MARIKA done in the hospital which was within normal limits Patient seen and examined at bedside. Patient is mentioning of residual deficits on the right side but improving with PT; mentions sore throat improving, no cough. Awaiting care home facility placement Objective vital signs Vital Sign Date Time Temp Pulse Resp B/P (MAP) Pulse Ox O2 Delivery O2 Flow Rate FiO2 05/06/25 09:56 60 153/77 05/06/25 07:46 97.5 17 99 97.5 05/05/25 20:00 Room Air* 0 21 Total Intake and Output 05/05/25 05/05/25 05/06/25 15:00 23:00 07:00 Intake Total 900 ml 400 ml Balance 900 ml 400 ml medications Current Medications Medications Dose Ordered Sig/Karthikeyan Route Start Time Stop Time Status Last Admin Dose Admin Metoprolol Tartrate 25 mg BID PO 04/25/25 22:00 05/06/25 09:56 25 MG Hydralazine HCl 10 mg Q6HP PRN IV 04/25/25 15:30 05/02/25 18:18 10 MG Diagnostic Test (Pha) 1 strip ACHS 04/25/25 17:00 05/06/25 06:47 1 STRIP Insulin Human Regular HS SC 04/25/25 22:00 05/05/25 22:09 4 UNITS Insulin Human Regular AC SC 04/25/25 17:00 05/05/25 17:00 3 UNITS Dextrose 50 ml UD PRN IV 04/25/25 15:30 Sodium Chloride 10 ml Q8HR IV 04/25/25 22:00 05/06/25 06:47 10 ML Ondansetron HCl 4 mg Q4HP PRN IV 04/25/25 15:30 Docusate Sodium 100 mg BIDPRN PRN PO 04/25/25 15:30 Nitroglycerin 0.4 mg Q5MINP PRN SL 04/25/25 17:45 Lorazepam 1 mg ONCE PRN IV 04/25/25 20:45 Enoxaparin Sodium 100 mg Q12HR SC 04/25/25 22:00 05/06/25 09:56 100 MG Enoxaparin Sodium 100 mg Q12HR SC 04/25/25 22:00 UNV Aspirin 81 mg DAILY PO 04/27/25 10:00 05/06/25 09:55 81 MG Zolpidem Tartrate 5 mg HSPRN PRN PO 04/28/25 20:15 Acetaminophen 650 mg Q6HP PRN PO 05/03/25 09:45 Throat Lozenges 1 pritesh Q2HP PRN MT 05/03/25 09:45 05/04/25 17:01 1 PRITESH Atorvastatin Calcium 20 mg HS PO 05/05/25 22:00 05/05/25 21:59 20 MG Examination General Appearance: Alert, Oriented X3, Cooperative, No acute distress HEENT: Atraumatic, PERRLA, EOMI, Mucous membrane moist/pink Respiratory: Clear to auscultation, Normal air movement Cardiovascular: Irregularly irregular rhythm Abdominal: Normal bowel sounds, Soft, No tenderness, No hepatosplenomegaly, No masses Extremities: No clubbing, No cyanosis, No edema, Normal pulses, No tenderness/swelling Skin: No rashes, No breakdown, No significant lesion Neuro: Weakness on the right side, improving laboratory and microbiology Laboratory Tests 05/03/25 11:00 Test 05/03/25 11:00 Range/Units Serum Glucose 155 H 74-106 mg/dL Problem List/Assessment/Plan Problem List/Assessment/Plan Assessment/plan # acute pontine stroke, right-sided deficit -aspirin, atorvastatin Neurology on board Physical therapy # AFib Currently on Lovenox Metoprolol Cardiology following Status post MARIKA # COVID positive Asymptomatic acetaminophen PRN lozenges for throat pain # diabetes mellitus Sliding scale insulin # hypertension Hydralazine p.r.n. DVT prophylaxis On Lovenox Physical therapy order health services manager consulted to arrange care home facility for physical therapy Awaiting SNF placement Case discussion with Dr. Flowers Plan discussed with: Patient, Other (RN) Dietary Evaluation Review Comments: 1) [facility]CHO 60gm + cardiac diet 2) Refer [employer] for diabetes education Expected Outcomes/Goals: To meet >75% estimated needs Fu 3-5 days Addendum Addendum Addendum I was physically present for the vazquez portions of the service provided to patient by THE RESIDENT. I have reviewed the documentation, discussed the case with resident and agree with the resident's documentation except as noted. Also the patient's clinical case was discussed with the patient's nurse. This medical document was created using an electronic medical record system with computerized dictation system. Although this document has been carefully reviewed, there might still be some phonetic and typographical errors. These areas are purely typographical due to imperfections of the software programs, and do not reflect any compromise in the patient's medical care. Late signature. Date of Service: May 06, 2025 Billing Provider: YASMINE FLOWERS MD Common Visit Codes: [id number] INP/OBS CARE(MOD) DEBBY HERNANDEZ RESIDENT May 06, 2025 10:14 YASMINE FLOWERS MD May 07, 2025 06:38
[2025-05-07] VITALS (8 sets, daily range): BP systolic 121–150; BP diastolic 69–84; PULSE 49–86; RESP 16–19; TEMP 97.5–98.9; O2SAT 97–99
--- NOTE | 2025-05-07 06:40 | DVHPN2 ---
Subjective Continues to have right-sided weakness with mild slurred speech Reviewed: Care Plan, H&P, Labs, Medications, Previous Orders, Radiology, Other (Consultations) Changes from previous H/P or p: No Changes Objective Vitals Vital Signs Date Time Temp Pulse Resp B/P (MAP) Pulse Ox O2 Delivery O2 Flow Rate FiO2 05/07/25 05:00 97.5 68 18 133/83 (100) 98 97.5 05/06/25 20:00 Room Air* 0 21 Intake/Output Intake and Output 05/07/25 07:00 Intake Total 800 ml Balance 800 ml Intake Oral 800 ml # Voids 7 # Bowel Movements 1 General Appearance: Alert, Oriented X3, Cooperative, No acute distress HEENT: Atraumatic Lungs: Clear to auscultation, Normal air movement Cardiovascular: Regular rate, Normal S1, Normal S2 Abdomen: Normal bowel sounds, Soft, No tenderness Extremities: No edema Neuro: Normal speech, Cranial nerves 3-12 NL, Other (Right-sided weakness) Psych/Mental Status: Mental status NL, Mood NL Medications Current Medications Medications Dose Ordered Sig/Karthikeyan Route Start Time Stop Time Status Last Admin Dose Admin Metoprolol Tartrate 25 mg BID PO 04/25/25 22:00 05/06/25 22:11 25 MG Hydralazine HCl 10 mg Q6HP PRN IV 04/25/25 15:30 05/02/25 18:18 10 MG Diagnostic Test (Pha) 1 strip ACHS 04/25/25 17:00 05/07/25 06:04 1 STRIP Insulin Human Regular HS SC 04/25/25 22:00 05/06/25 22:28 2 UNITS Insulin Human Regular AC SC 04/25/25 17:00 05/06/25 17:26 2 UNITS Dextrose 50 ml UD PRN IV 04/25/25 15:30 Sodium Chloride 10 ml Q8HR IV 04/25/25 22:00 05/07/25 06:03 10 ML Ondansetron HCl 4 mg Q4HP PRN IV 04/25/25 15:30 Docusate Sodium 100 mg BIDPRN PRN PO 04/25/25 15:30 Nitroglycerin 0.4 mg Q5MINP PRN SL 04/25/25 17:45 Lorazepam 1 mg ONCE PRN IV 04/25/25 20:45 Enoxaparin Sodium 100 mg Q12HR SC 04/25/25 22:00 UNV Aspirin 81 mg DAILY PO 04/27/25 10:00 05/06/25 09:55 81 MG Zolpidem Tartrate 5 mg HSPRN PRN PO 04/28/25 20:15 Acetaminophen 650 mg Q6HP PRN PO 05/03/25 09:45 Throat Lozenges 1 pritesh Q2HP PRN MT 05/03/25 09:45 05/04/25 17:01 1 PRITESH Atorvastatin Calcium 20 mg HS PO 05/05/25 22:00 05/06/25 22:10 20 MG Laboratory Results Laboratory Tests 05/03/25 11:00 Urinalysis Test 04/25/25 12:03 05/01/25 01:30 Urine Mucus Few (None Seen) Urine Color Yellow (Yellow) Urine Clarity Clear (Clear) Urine pH 6.0 (5.0-9.0) Urine Specific [place] 1.026 (1.001-1.035) Urine Protein Negative (Negative) Urine Ketones Negative (Negative) Urine Blood Negative /uL (Negative) Urine Nitrite Negative (Negative) Urine Bilirubin Negative (Negative) Urine Urobilinogen 8 mg/dL (Negative) H Urine Leukocyte Esterase Negative /uL (Negative) Urine RBC 1 /hpf (0 - 3) Urine Microscopic WBC 2 /HPF (0-3) Urine Squamous Epithelial Cells None seen /hpf (<5) Urine Calcium Oxalate Crystals Few (None Seen) Urine Amorphous Crystals Few /hpf (None Seen) Urine Bacteria None seen /hpf (None Seen) Urine Glucose 3+ mg/dL (Normal) H Labs and/or images reviewed: Labs reviewed by me, Image(s) reviewed by me Assessment/Plan Assessment/Plan Covering: Acute pontine stroke, right-sided deficit Continue aspirin and statin Neurology on board Physical therapy as inpatient AFib Currently on therapeutic enoxaparin Continue beta-elly Cardiology on board Status post MARIKA # COVID-19 positive Saturating well on room air with no respiratory symptoms/signs Acetaminophen as needed Lozenges for throat pain # Diabetes mellitus type 2 Continue insulin therapy and adjust according to blood glucose measurements # Hypertensive heart disease without heart failure Continue antihypertensive medication and adjust according to blood pressure measurements [employer] on board to arrange [facility] facility for physical therapy/GI Awaiting SNF placement Late Entry. This medical document was created using an electronic medical record system with computerized dictation system. Although this document has been carefully reviewed, there might still be some phonetic and typographical errors. These areas are purely typographical due to imperfections of the software programs, and do not reflect any compromise in the patient's medical care. Plan discussed with: Patient, Other (Nurse) Date of Service: May 07, 2025 Billing Provider: YASMINE FLOWERS MD Common Visit Codes: [id number] INP/OBS CARE(MOD) YASMINE FLOWERS MD May 07, 2025 06:40
[2025-05-08] VITALS (8 sets, daily range): BP systolic 124–152; BP diastolic 55–85; PULSE 54–65; RESP 16–18; TEMP 97.6–98.8; O2SAT 98–100
--- NOTE | 2025-05-08 15:09 | DVHPN2 ---
Subjective Continues to have right-sided weakness; trying his best efforts with physical therapy as inpatient Reviewed: Care Plan, H&P, Labs, Medications, Previous Orders, Radiology, Other (Consultations) Changes from previous H/P or p: No Changes Objective Vitals Vital Signs Date Time Temp Pulse Resp B/P (MAP) Pulse Ox O2 Delivery O2 Flow Rate FiO2 05/08/25 13:00 97.8 55 18 136/80 (98) 98 97.8 05/08/25 08:00 Room Air* 0 21 Intake/Output Intake and Output 05/08/25 07:00 Intake Total 2050 ml Output Total 525 ml Balance 1525 ml Intake Oral 2050 ml Output Urine Total 525 ml # Voids 3 General Appearance: Alert, Oriented X3, Cooperative, No acute distress HEENT: Atraumatic Lungs: Clear to auscultation, Normal air movement Cardiovascular: Regular rate, Normal S1, Normal S2 Abdomen: Normal bowel sounds, Soft, No tenderness Extremities: No edema Neuro: Normal speech, Cranial nerves 3-12 NL, Other (Right-sided weakness) Psych/Mental Status: Mental status NL, Mood NL Medications Current Medications Medications Dose Ordered Sig/Karthikeyan Route Start Time Stop Time Status Last Admin Dose Admin Metoprolol Tartrate 25 mg BID PO 04/25/25 22:00 05/08/25 10:15 25 MG Hydralazine HCl 10 mg Q6HP PRN IV 04/25/25 15:30 05/02/25 18:18 10 MG Diagnostic Test (Pha) 1 strip ACHS 04/25/25 17:00 05/08/25 11:30 1 STRIP Insulin Human Regular HS SC 04/25/25 22:00 05/07/25 21:33 4 UNITS Insulin Human Regular AC SC 04/25/25 17:00 05/08/25 11:30 6 UNITS Dextrose 50 ml UD PRN IV 04/25/25 15:30 Sodium Chloride 10 ml Q8HR IV 04/25/25 22:00 05/08/25 05:45 10 ML Ondansetron HCl 4 mg Q4HP PRN IV 04/25/25 15:30 Docusate Sodium 100 mg BIDPRN PRN PO 04/25/25 15:30 Nitroglycerin 0.4 mg Q5MINP PRN SL 04/25/25 17:45 Lorazepam 1 mg ONCE PRN IV 04/25/25 20:45 Enoxaparin Sodium 100 mg Q12HR SC 04/25/25 22:00 UNV Aspirin 81 mg DAILY PO 04/27/25 10:00 05/08/25 10:16 81 MG Zolpidem Tartrate 5 mg HSPRN PRN PO 04/28/25 20:15 Acetaminophen 650 mg Q6HP PRN PO 05/03/25 09:45 Throat Lozenges 1 pritesh Q2HP PRN MT 05/03/25 09:45 05/04/25 17:01 1 PRITESH Atorvastatin Calcium 20 mg HS PO 05/05/25 22:00 05/07/25 21:35 20 MG Laboratory Results Laboratory Tests 05/03/25 11:00 Urinalysis Test 04/25/25 12:03 05/01/25 01:30 Urine Mucus Few (None Seen) Urine Color Yellow (Yellow) Urine Clarity Clear (Clear) Urine pH 6.0 (5.0-9.0) Urine Specific [place] 1.026 (1.001-1.035) Urine Protein Negative (Negative) Urine Ketones Negative (Negative) Urine Blood Negative /uL (Negative) Urine Nitrite Negative (Negative) Urine Bilirubin Negative (Negative) Urine Urobilinogen 8 mg/dL (Negative) H Urine Leukocyte Esterase Negative /uL (Negative) Urine RBC 1 /hpf (0 - 3) Urine Microscopic WBC 2 /HPF (0-3) Urine Squamous Epithelial Cells None seen /hpf (<5) Urine Calcium Oxalate Crystals Few (None Seen) Urine Amorphous Crystals Few /hpf (None Seen) Urine Bacteria None seen /hpf (None Seen) Urine Glucose 3+ mg/dL (Normal) H Assessment/Plan Assessment/Plan Covering: # Acute pontine stroke, right-sided deficit Continue aspirin and statin Neurology on board Physical therapy as inpatient # Paroxysmal atrial fibrillation Currently on therapeutic enoxaparin Continue beta-elly metoprolol tartrate Cardiology on board Status post MARIKA; reviewed results # COVID-19 positive Saturating well on room air with no respiratory symptoms/signs Acetaminophen as needed Lozenges for throat pain # Diabetes mellitus type 2 Continue insulin therapy and adjust according to blood glucose measurements # Hypertensive heart disease without heart failure Continue antihypertensive medication and adjust according to blood pressure measurements [employer] on board to arrange SNF for physical therapy/rehab Awaiting SNF placement Late Entry. This medical document was created using an electronic medical record system with computerized dictation system. Although this document has been carefully reviewed, there might still be some phonetic and typographical errors. These areas are purely typographical due to imperfections of the software programs, and do not reflect any compromise in the patient's medical care. Plan discussed with: Patient, Other (Nurse) Date of Service: May 08, 2025 Billing Provider: YASMINE FLOWERS MD Common Visit Codes: [id number] INP/OBS CARE(MOD) YASMINE FLOWERS MD May 08, 2025 15:09
--- NOTE | 2025-05-08 19:15 | DVHPN2 ---
Progress Note - Dictate Date Seen: May 08, 2025 Medical Necessity Reason Pt with a Central, PICC or Fol: No Subjective Mr. Romero is a 65 years old not sure left-handed gentleman with a history of hypertension, diabetes, atrial fibrillation, he came to the [facility] on 04/25/2025 with a chief complaint of general weakness. I have seen examined the patient, talked to his nurse, he is doing fine, speech and gait keeps improving, no new complaints UDS, 04/25/2025: Negative Urinalysis, 04/25/2025: WBC: 46, urine leukocyte esterase: Negative SARS-CoV-2 antigen, 05/02/2025: Positive CBC, 04/25/2025: Unremarkable BMP 04/25/2025: Unremarkable HGB A1c, 03/19/2025: 6.3 TBI/AST/ALT/AP, 03/20/2025: 1/9//110/72 TG/HDL/LDL/HDL, 04/25/25: 78/120/46/50, 04/26/2025: 77/105/38/44 Echocardiogram, 04/24/2025: LV EF IS 69% AND IS NORMAL SLIGHTLY DILATED RV,RA AND LA NORMAL VALVES NO EFFUSION MARIKA, 04/29/2025: Normal MARIKA Carotid Doppler, 04/25/2025: 1. No hemodynamically significant stenosis noted in the right carotid system. 2. No hemodynamically significant stenosis noted in the left carotid system. CT head, 04/25/2025: 1. Mild chronic ischemic changes without evidence of acute intracranial process. 2. Bilateral maxillary sinus disease MRI head, 04/26/2025: 1. Acute/ subacute left pontine infarct. Clinical correlation and continued follow-up is recommended. 2. Mild changes of chronic microvascular ischemic disease. Mild paranasal sinus disease. vital signs Vital Sign Date Time Temp Pulse Resp B/P (MAP) Pulse Ox O2 Delivery O2 Flow Rate FiO2 05/08/25 17:00 97.6 57 18 144/76 (98) 100 97.6 05/08/25 08:00 Room Air* 0 21 Total Intake and Output 05/07/25 05/07/25 05/08/25 15:00 23:00 07:00 Intake Total 1250 ml 800 ml Output Total 525 ml Balance 1250 ml 275 ml medications Current Medications Medications Dose Ordered Sig/Karthikeyan Route Start Time Stop Time Status Last Admin Dose Admin Metoprolol Tartrate 25 mg BID PO 04/25/25 22:00 05/08/25 10:15 25 MG Hydralazine HCl 10 mg Q6HP PRN IV 04/25/25 15:30 05/02/25 18:18 10 MG Diagnostic Test (Pha) 1 strip ACHS 04/25/25 17:00 05/08/25 11:30 1 STRIP Insulin Human Regular HS SC 04/25/25 22:00 05/07/25 21:33 4 UNITS Insulin Human Regular AC SC 04/25/25 17:00 05/08/25 11:30 6 UNITS Dextrose 50 ml UD PRN IV 04/25/25 15:30 Sodium Chloride 10 ml Q8HR IV 04/25/25 22:00 05/08/25 14:00 10 ML Ondansetron HCl 4 mg Q4HP PRN IV 04/25/25 15:30 Docusate Sodium 100 mg BIDPRN PRN PO 04/25/25 15:30 Nitroglycerin 0.4 mg Q5MINP PRN SL 04/25/25 17:45 Lorazepam 1 mg ONCE PRN IV 04/25/25 20:45 Enoxaparin Sodium 100 mg Q12HR SC 04/25/25 22:00 UNV Aspirin 81 mg DAILY PO 04/27/25 10:00 05/08/25 10:16 81 MG Zolpidem Tartrate 5 mg HSPRN PRN PO 04/28/25 20:15 Acetaminophen 650 mg Q6HP PRN PO 05/03/25 09:45 Throat Lozenges 1 pritesh Q2HP PRN MT 05/03/25 09:45 05/04/25 17:01 1 PRITESH Atorvastatin Calcium 20 mg HS PO 05/05/25 22:00 05/07/25 21:35 20 MG objective General: the patient is well developed and nourished. No acute distress. MENTAL STATUS: Awake and alert. Oriented x4 SPEECH, LANGUAGE, HIGHER CORTICAL FUNCTION: Mild dysarthria CRANIAL NERVES: Pupils are equal, round and reactive. EOMs full and conjugate. No nystagmus. Facial sensation intact in all three divisions bilaterally. Mandibular strength intact. Facial muscles symmetrical and strength intact. SENSATION: Sensation to touch and pinprick is normal. MOTOR: Normal tone in the upper and lower extremity. Normal muscle bulk. No fasciculations. No abnormal movements or posturing. Muscle strength of the major groups in the extremities is 5/5 except for 4/5 in the right arm with right upper extremity drift REFLEXES: Deep tendon reflexes normal and symmetrical. No pathological reflexes. CEREBELLAR/COORDINATION: Finger to nose is normal bilaterally. GAIT/STATION: deferred. laboratory and microbiology Laboratory Tests 05/03/25 11:00 Test 05/03/25 11:00 Range/Units Serum Glucose 155 H 74-106 mg/dL Problem List Bilateral leg weakness, gait disturbance, Trunk ataxia Right upper extremity weakness, expressive aphasia, dysarthria, dysphagia Acute pontine stroke COVID-19 Assessment/Plan Monitoring Supportive treatment Telemetry Aerosolized sedation Lipitor 20 mg daily (home medication, LDL does not 50) Lovenox 1 milligram/kg subQ b.i.d. D/C aspirin okay with Speech pathology on case Physical therapy Cardiology on case More recommendation per clinical course This medical document was created using an electronic medical record system with [employer] dictation system. Although this document has been carefully reviewed, there may still be some phonetic and typographical errors. These areas are purely typographical due to imperfections of the software programs, and do not reflect any compromise in the patient's medical care. Prognosis poor Dietary Evaluation Review Comments: 1[facility] 2) Refer Telemedicine Physician for diabetes education Expected Outcomes/Goals: To meet >75% estimated needs Fu 3-5 days Plan discussed with: Patient, Other TAMIKO RUVALCABA MD May 08, 2025 19:15
[2025-05-09] VITALS (7 sets, daily range): BP systolic 123–141; BP diastolic 70–88; PULSE 54–72; RESP 16–18; TEMP 97.6–98.3; O2SAT 97–100
--- NOTE | 2025-05-09 15:18 | DVHPN2 ---
Subjective Patient denies any symptoms at this time Reviewed: Care Plan, H&P, Labs, Medications, Previous Orders, Radiology, Other (Consultations) Changes from previous H/P or p: No Changes General: Per HPI Objective Vitals Vital Signs Date Time Temp Pulse Resp B/P (MAP) Pulse Ox O2 Delivery O2 Flow Rate FiO2 05/09/25 12:40 98.1 54 16 140/88 (105) 100 98.1 05/09/25 07:50 Room Air* 0 21 Intake/Output Intake and Output 05/09/25 07:00 Intake Total 2380 ml Output Total 450 ml Balance 1930 ml Intake Oral 2380 ml Output Urine Total 450 ml # Voids 4 # Bowel Movements 1 General Appearance: Alert, Oriented X3, Cooperative, No acute distress HEENT: Atraumatic Lungs: Clear to auscultation, Normal air movement Cardiovascular: Regular rate, Normal S1, Normal S2 Abdomen: Normal bowel sounds, Soft, No tenderness Extremities: No edema Neuro: Normal speech, Cranial nerves 3-12 NL, Other (Right-sided weakness) Skin: Dry, Intact Psych/Mental Status: Mental status NL, Mood NL Medications Current Medications Medications Dose Ordered Sig/Karthkieyan Route Start Time Stop Time Status Last Admin Dose Admin Metoprolol Tartrate 25 mg BID PO 04/25/25 22:00 05/09/25 09:53 25 MG Hydralazine HCl 10 mg Q6HP PRN IV 04/25/25 15:30 05/02/25 18:18 10 MG Diagnostic Test (Pha) 1 strip ACHS 04/25/25 17:00 05/09/25 12:28 1 STRIP Insulin Human Regular HS SC 04/25/25 22:00 05/08/25 21:59 8 UNITS Insulin Human Regular AC SC 04/25/25 17:00 05/09/25 12:29 3 UNITS Dextrose 50 ml UD PRN IV 04/25/25 15:30 Sodium Chloride 10 ml Q8HR IV 04/25/25 22:00 05/09/25 14:00 10 ML Ondansetron HCl 4 mg Q4HP PRN IV 04/25/25 15:30 Docusate Sodium 100 mg BIDPRN PRN PO 04/25/25 15:30 Nitroglycerin 0.4 mg Q5MINP PRN SL 04/25/25 17:45 Lorazepam 1 mg ONCE PRN IV 04/25/25 20:45 Enoxaparin Sodium 100 mg Q12HR SC 04/25/25 22:00 UNV Aspirin 81 mg DAILY PO 04/27/25 10:00 05/09/25 09:53 81 MG Zolpidem Tartrate 5 mg HSPRN PRN PO 04/28/25 20:15 Acetaminophen 650 mg Q6HP PRN PO 05/03/25 09:45 Throat Lozenges 1 pritesh Q2HP PRN MT 05/03/25 09:45 05/04/25 17:01 1 PRITESH Atorvastatin Calcium 20 mg HS PO 05/05/25 22:00 05/08/25 21:46 20 MG Laboratory Results Laboratory Tests 05/03/25 11:00 Urinalysis Test 04/25/25 12:03 05/01/25 01:30 Urine Mucus Few (None Seen) Urine Color Yellow (Yellow) Urine Clarity Clear (Clear) Urine pH 6.0 (5.0-9.0) Urine Specific [place] 1.026 (1.001-1.035) Urine Protein Negative (Negative) Urine Ketones Negative (Negative) Urine Blood Negative /uL (Negative) Urine Nitrite Negative (Negative) Urine Bilirubin Negative (Negative) Urine Urobilinogen 8 mg/dL (Negative) H Urine Leukocyte Esterase Negative /uL (Negative) Urine RBC 1 /hpf (0 - 3) Urine Microscopic WBC 2 /HPF (0-3) Urine Squamous Epithelial Cells None seen /hpf (<5) Urine Calcium Oxalate Crystals Few (None Seen) Urine Amorphous Crystals Few /hpf (None Seen) Urine Bacteria None seen /hpf (None Seen) Urine Glucose 3+ mg/dL (Normal) H Labs and/or images reviewed: Labs reviewed by me, Image(s) reviewed by me Assessment/Plan Assessment/Plan Impression: -acute pontine stroke -COVID-19 without respiratory distress -dyslipidemia -primary hypertension -paroxysmal atrial fibrillation Plan: -continue aspirin -continue statin -transfer to Medical/Surgical floor -social service consultation for transfer to SNF for rehab -physical therapy Total time spent with patient discussing and formulating plan of care: 35 minutes. This medical document was created using an electronic medical record system with [employer] dictation system. Although this document has been carefully reviewed, there may still be some phonetic and typographical errors. These areas are purely typographical due to imperfections of the software programs, and do not reflect any compromise in the patient's medical care. Plan discussed with: Patient, Other (RN) Date of Service: May 09, 2025 Billing Provider: BELLO NAVA NP Common Visit Codes: [id number] INP/OBS CARE(HIGH) BELLO NAVA NP May 09, 2025 15:18
[2025-05-10 01:00] VITALS: BP 128/76; PULSE 66; RESP 18; TEMP 98.3; O2SAT 99
[2025-05-10 04:32] VITALS: BP 114/61; PULSE 62; RESP 17; TEMP 97.8; O2SAT 98
[2025-05-10 09:00] VITALS: PULSE 64; RESP 20; TEMP 97.6; O2SAT 96
[2025-05-10 12:43] VITALS: BP 148/82; PULSE 54; RESP 20; TEMP 97.7; O2SAT 92
--- NOTE | 2025-05-10 13:16 | DVHPN2 ---
Subjective Patient denies any symptoms at this time Reviewed: Care Plan, H&P, Labs, Medications, Previous Orders, Radiology, Other (Consultations) Changes from previous H/P or p: No Changes General: Per HPI Objective Vitals Vital Signs Date Time Temp Pulse Resp B/P (MAP) Pulse Ox O2 Delivery O2 Flow Rate FiO2 05/10/25 12:43 97.7 54 20 148/82 (104) 92 97.7 05/10/25 07:40 Room Air* 0 21 Intake/Output Intake and Output 05/10/25 07:00 Intake Total 1600 ml Balance 1600 ml Intake Oral 1600 ml # Voids 8 # Bowel Movements 1 General Appearance: Alert, Oriented X3, Cooperative, No acute distress HEENT: Atraumatic, PERRLA Lungs: Clear to auscultation, Normal air movement Cardiovascular: Regular rate, Normal S1, Normal S2 Abdomen: Normal bowel sounds, Soft, No tenderness Extremities: No edema Neuro: Normal speech, Cranial nerves 3-12 NL, Other (Right-sided weakness) Skin: Dry, Intact Psych/Mental Status: Mental status NL, Mood NL Medications Current Medications Medications Dose Ordered Sig/Karthikeyan Route Start Time Stop Time Status Last Admin Dose Admin Metoprolol Tartrate 25 mg BID PO 04/25/25 22:00 05/10/25 10:30 25 MG Hydralazine HCl 10 mg Q6HP PRN IV 04/25/25 15:30 05/02/25 18:18 10 MG Diagnostic Test (Pha) 1 strip ACHS 04/25/25 17:00 05/10/25 06:05 1 STRIP Insulin Human Regular HS SC 04/25/25 22:00 05/08/25 21:59 8 UNITS Insulin Human Regular AC SC 04/25/25 17:00 05/10/25 12:13 6 UNITS Dextrose 50 ml UD PRN IV 04/25/25 15:30 Sodium Chloride 10 ml Q8HR IV 04/25/25 22:00 05/10/25 06:05 10 ML Ondansetron HCl 4 mg Q4HP PRN IV 04/25/25 15:30 Docusate Sodium 100 mg BIDPRN PRN PO 04/25/25 15:30 Nitroglycerin 0.4 mg Q5MINP PRN SL 04/25/25 17:45 Lorazepam 1 mg ONCE PRN IV 04/25/25 20:45 Enoxaparin Sodium 100 mg Q12HR SC 04/25/25 22:00 UNV Aspirin 81 mg DAILY PO 04/27/25 10:00 05/10/25 10:30 81 MG Zolpidem Tartrate 5 mg HSPRN PRN PO 04/28/25 20:15 Acetaminophen 650 mg Q6HP PRN PO 05/03/25 09:45 Throat Lozenges 1 pritesh Q2HP PRN MT 05/03/25 09:45 05/04/25 17:01 1 PRITESH Atorvastatin Calcium 20 mg HS PO 05/05/25 22:00 05/09/25 23:22 20 MG Laboratory Results Laboratory Tests 05/03/25 11:00 Urinalysis Test 04/25/25 12:03 05/01/25 01:30 Urine Mucus Few (None Seen) Urine Color Yellow (Yellow) Urine Clarity Clear (Clear) Urine pH 6.0 (5.0-9.0) Urine Specific [place] 1.026 (1.001-1.035) Urine Protein Negative (Negative) Urine Ketones Negative (Negative) Urine Blood Negative /uL (Negative) Urine Nitrite Negative (Negative) Urine Bilirubin Negative (Negative) Urine Urobilinogen 8 mg/dL (Negative) H Urine Leukocyte Esterase Negative /uL (Negative) Urine RBC 1 /hpf (0 - 3) Urine Microscopic WBC 2 /HPF (0-3) Urine Squamous Epithelial Cells None seen /hpf (<5) Urine Calcium Oxalate Crystals Few (None Seen) Urine Amorphous Crystals Few /hpf (None Seen) Urine Bacteria None seen /hpf (None Seen) Urine Glucose 3+ mg/dL (Normal) H Labs and/or images reviewed: Labs reviewed by me, Image(s) reviewed by me Assessment/Plan Assessment/Plan Impression: -acute pontine stroke -COVID-19 without respiratory distress -dyslipidemia -primary hypertension -paroxysmal atrial fibrillation Plan: -continue aspirin -continue statin -transfer to Medical/Surgical floor -social service consultation for transfer to SNF for rehab -physical therapy Total time spent with patient discussing and formulating plan of care: 35 minutes. This medical document was created using an electronic medical record system with [employer] dictation system. Although this document has been carefully reviewed, there may still be some phonetic and typographical errors. These areas are purely typographical due to imperfections of the software programs, and do not reflect any compromise in the patient's medical care. Plan discussed with: Patient, Other (rn) My Orders Orders - BELLO NAVA NP Procedure Category Date Status Time Transfer Orders XFER 05/09/25 Transmitted 15:16 Date of Service: May 10, 2025 Billing Provider: BELLO NAVA NP Common Visit Codes: [id number] INP/OBS CARE(HIGH) BELLO NAVA NP May 10, 2025 13:16
[2025-05-10 17:48] VITALS: BP 155/85; PULSE 58; RESP 20; TEMP 97.7; O2SAT 99
[2025-05-10 21:00] VITALS: BP 155/76; PULSE 56; RESP 16; TEMP 97.6; O2SAT 97
[2025-05-11 01:00] VITALS: BP 141/78; PULSE 50; RESP 14; TEMP 97.7; O2SAT 98
[2025-05-11 05:00] VITALS: BP 151/79; PULSE 62; RESP 16; TEMP 97.7; O2SAT 97
[2025-05-11 08:26] VITALS: BP 149/84; PULSE 65; RESP 15; TEMP 97.4; O2SAT 99
--- NOTE | 2025-05-11 09:44 | DVHPN2 ---
Subjective Patient denies any symptoms at this time Reviewed: Care Plan, H&P, Labs, Medications, Previous Orders, Radiology, Other (Consultations) Changes from previous H/P or p: No Changes General: Per HPI Objective Vitals Vital Signs Date Time Temp Pulse Resp B/P (MAP) Pulse Ox O2 Delivery O2 Flow Rate FiO2 05/11/25 08:26 97.4 65 15 149/84 (105) 99 97.4 05/11/25 08:08 Room Air* 0 21 Intake/Output Intake and Output 05/11/25 07:00 Intake Total 2200 ml Balance 2200 ml Intake Oral 2200 ml # Voids 9 General Appearance: Alert, Oriented X3, Cooperative, No acute distress HEENT: Atraumatic, PERRLA Lungs: Clear to auscultation, Normal air movement Cardiovascular: Regular rate, Normal S1, Normal S2 Abdomen: Normal bowel sounds, Soft, No tenderness Extremities: No edema Neuro: Normal speech, Cranial nerves 3-12 NL, Other (Right-sided weakness) Skin: Dry, Intact Psych/Mental Status: Mental status NL, Mood NL Medications Current Medications Medications Dose Ordered Sig/Karthikeyan Route Start Time Stop Time Status Last Admin Dose Admin Metoprolol Tartrate 25 mg BID PO 04/25/25 22:00 05/10/25 21:45 25 MG Hydralazine HCl 10 mg Q6HP PRN IV 04/25/25 15:30 05/02/25 18:18 10 MG Diagnostic Test (Pha) 1 strip ACHS 04/25/25 17:00 05/11/25 06:36 1 STRIP Insulin Human Regular HS SC 04/25/25 22:00 05/10/25 22:34 3 UNITS Insulin Human Regular AC SC 04/25/25 17:00 05/10/25 12:13 6 UNITS Dextrose 50 ml UD PRN IV 04/25/25 15:30 Sodium Chloride 10 ml Q8HR IV 04/25/25 22:00 05/11/25 06:37 10 ML Ondansetron HCl 4 mg Q4HP PRN IV 04/25/25 15:30 Docusate Sodium 100 mg BIDPRN PRN PO 04/25/25 15:30 Nitroglycerin 0.4 mg Q5MINP PRN SL 04/25/25 17:45 Lorazepam 1 mg ONCE PRN IV 04/25/25 20:45 Enoxaparin Sodium 100 mg Q12HR SC 04/25/25 22:00 UNV Aspirin 81 mg DAILY PO 04/27/25 10:00 05/10/25 10:30 81 MG Zolpidem Tartrate 5 mg HSPRN PRN PO 04/28/25 20:15 Acetaminophen 650 mg Q6HP PRN PO 05/03/25 09:45 Throat Lozenges 1 pritesh Q2HP PRN MT 05/03/25 09:45 05/04/25 17:01 1 PRITESH Atorvastatin Calcium 20 mg HS PO 05/05/25 22:00 05/10/25 21:45 20 MG Laboratory Results Laboratory Tests 05/03/25 11:00 Urinalysis Test 04/25/25 12:03 05/01/25 01:30 Urine Mucus Few (None Seen) Urine Color Yellow (Yellow) Urine Clarity Clear (Clear) Urine pH 6.0 (5.0-9.0) Urine Specific [place] 1.026 (1.001-1.035) Urine Protein Negative (Negative) Urine Ketones Negative (Negative) Urine Blood Negative /uL (Negative) Urine Nitrite Negative (Negative) Urine Bilirubin Negative (Negative) Urine Urobilinogen 8 mg/dL (Negative) H Urine Leukocyte Esterase Negative /uL (Negative) Urine RBC 1 /hpf (0 - 3) Urine Microscopic WBC 2 /HPF (0-3) Urine Squamous Epithelial Cells None seen /hpf (<5) Urine Calcium Oxalate Crystals Few (None Seen) Urine Amorphous Crystals Few /hpf (None Seen) Urine Bacteria None seen /hpf (None Seen) Urine Glucose 3+ mg/dL (Normal) H Labs and/or images reviewed: Labs reviewed by me, Image(s) reviewed by me Assessment/Plan Assessment/Plan Impression: -acute pontine stroke -COVID-19 without respiratory distress -dyslipidemia -primary hypertension -paroxysmal atrial fibrillation Plan: Events: No change in A/P. Awaiting SNF bed -continue aspirin -continue statin -social service consultation for transfer to SNF for rehab -physical therapy Total time spent with patient discussing and formulating plan of care: 35 minutes. This medical document was created using an electronic medical record system with [employer] dictation system. Although this document has been carefully reviewed, there may still be some phonetic and typographical errors. These areas are purely typographical due to imperfections of the software programs, and do not reflect any compromise in the patient's medical care. Plan discussed with: Patient, Other (RN) My Orders Orders - BELLO NAVA NP Procedure Category Date Status Time Communication Order ORDERS 05/10/25 Transmitted 13:15 Date of Service: May 11, 2025 Billing Provider: BELLO NAVA NP Common Visit Codes: [id number] INP/OBS CARE(MOD) BELLO NAVA NP May 11, 2025 09:44
[2025-05-11 13:00] VITALS: BP 141/85; PULSE 63; RESP 16; TEMP 98.9; O2SAT 96
[2025-05-11 16:30] VITALS: BP 158/88; PULSE 63; RESP 17; TEMP 98.3; O2SAT 97
[2025-05-11 21:00] VITALS: BP 135/79; PULSE 56; RESP 16; TEMP 98.1; O2SAT 98
[2025-05-12 01:00] VITALS: BP 136/88; PULSE 56; RESP 14; TEMP 97.4; O2SAT 96
[2025-05-12 08:00] VITALS: PULSE 68; RESP 17
[2025-05-12 09:07] VITALS: BP 131/75; PULSE 70; RESP 18; TEMP 97.5; O2SAT 97
--- NOTE | 2025-05-12 11:58 | DVHPN2 ---
Subjective Patient denies any symptoms at this time Reviewed: Care Plan, H&P, Labs, Medications, Previous Orders, Radiology, Other (Consultations) Changes from previous H/P or p: No Changes General: Per HPI Objective Vitals Vital Signs Date Time Temp Pulse Resp B/P (MAP) Pulse Ox O2 Delivery O2 Flow Rate FiO2 05/12/25 09:51 70 131/75 05/12/25 09:07 97.5 18 97 97.5 05/11/25 20:00 Room Air* 0 21 Intake/Output Intake and Output 05/12/25 07:00 Intake Total 1750 ml Balance 1750 ml Intake Oral 1750 ml # Voids 6 General Appearance: Alert, Oriented X3, Cooperative, No acute distress HEENT: Atraumatic, PERRLA Lungs: Clear to auscultation, Normal air movement Cardiovascular: Regular rate, Normal S1, Normal S2 Abdomen: Normal bowel sounds, Soft, No tenderness Extremities: No edema Neuro: Normal speech, Cranial nerves 3-12 NL, Other (Right-sided weakness) Skin: Dry, Intact Psych/Mental Status: Mental status NL, Mood NL Medications Current Medications Medications Dose Ordered Sig/Karthikeyan Route Start Time Stop Time Status Last Admin Dose Admin Metoprolol Tartrate 25 mg BID PO 04/25/25 22:00 05/12/25 09:51 25 MG Hydralazine HCl 10 mg Q6HP PRN IV 04/25/25 15:30 05/02/25 18:18 10 MG Diagnostic Test (Pha) 1 strip ACHS 04/25/25 17:00 05/12/25 06:17 1 STRIP Insulin Human Regular HS SC 04/25/25 22:00 05/11/25 21:51 6 UNITS Insulin Human Regular AC SC 04/25/25 17:00 05/11/25 12:18 6 UNITS Dextrose 50 ml UD PRN IV 04/25/25 15:30 Sodium Chloride 10 ml Q8HR IV 04/25/25 22:00 05/12/25 06:16 10 ML Ondansetron HCl 4 mg Q4HP PRN IV 04/25/25 15:30 Docusate Sodium 100 mg BIDPRN PRN PO 04/25/25 15:30 Nitroglycerin 0.4 mg Q5MINP PRN SL 04/25/25 17:45 Lorazepam 1 mg ONCE PRN IV 04/25/25 20:45 Enoxaparin Sodium 100 mg Q12HR SC 04/25/25 22:00 UNV Aspirin 81 mg DAILY PO 04/27/25 10:00 05/12/25 09:50 81 MG Zolpidem Tartrate 5 mg HSPRN PRN PO 04/28/25 20:15 Acetaminophen 650 mg Q6HP PRN PO 05/03/25 09:45 Throat Lozenges 1 pritesh Q2HP PRN MT 05/03/25 09:45 05/04/25 17:01 1 PRITESH Atorvastatin Calcium 20 mg HS PO 05/05/25 22:00 05/11/25 21:30 20 MG Laboratory Results Laboratory Tests 05/03/25 11:00 Urinalysis Test 04/25/25 12:03 05/01/25 01:30 Urine Mucus Few (None Seen) Urine Color Yellow (Yellow) Urine Clarity Clear (Clear) Urine pH 6.0 (5.0-9.0) Urine Specific [place] 1.026 (1.001-1.035) Urine Protein Negative (Negative) Urine Ketones Negative (Negative) Urine Blood Negative /uL (Negative) Urine Nitrite Negative (Negative) Urine Bilirubin Negative (Negative) Urine Urobilinogen 8 mg/dL (Negative) H Urine Leukocyte Esterase Negative /uL (Negative) Urine RBC 1 /hpf (0 - 3) Urine Microscopic WBC 2 /HPF (0-3) Urine Squamous Epithelial Cells None seen /hpf (<5) Urine Calcium Oxalate Crystals Few (None Seen) Urine Amorphous Crystals Few /hpf (None Seen) Urine Bacteria None seen /hpf (None Seen) Urine Glucose 3+ mg/dL (Normal) H Labs and/or images reviewed: Labs reviewed by me, Image(s) reviewed by me Assessment/Plan Assessment/Plan Impression: -acute pontine stroke -COVID-19 without respiratory distress -dyslipidemia -primary hypertension -paroxysmal atrial fibrillation Plan: Events: No change in A/P on 05/12/25. Awaiting SNF bed -continue aspirin -continue statin -social service consultation for transfer to SNF for rehab -physical therapy Total time spent with patient discussing and formulating plan of care: 35 minutes. This medical document was created using an electronic medical record system with [employer] dictation system. Although this document has been carefully reviewed, there may still be some phonetic and typographical errors. These areas are purely typographical due to imperfections of the software programs, and do not reflect any compromise in the patient's medical care. Plan discussed with: Patient, Other (RN) Date of Service: May 12, 2025 Billing Provider: BELLO NAVA NP Common Visit Codes: [id number] INP/OBS CARE(HIGH) BELLO NAVA NP May 12, 2025 11:58
[2025-05-12 12:57] VITALS: BP 133/81; PULSE 60; RESP 17; TEMP 98.9; O2SAT 98
[2025-05-12 14:21] VITALS: BP 125/70; PULSE 71; TEMP 37.2
== END 2025-05-12 16:30 | DRG 64 ==
LOC: ER 11:31 → OVERFLOW 17:32 → TELE-WESTW 21:23 → TELE-EAST 05-02 04:31 → EAST 05-09 17:25
PROVIDERS: ADMIT Nurse Practitioner Acute Care; ATTEND Nurse Practitioner Acute Care
PROC: B24BZZ4 Ultrasonography of Heart with Aorta, Transesophageal (ICD-10-PCS; principal; 2025-04-29)
DX: I63.29 Cerebral infarction due to unspecified occlusion or stenosis of other precerebral arteries (principal); U07.1 COVID-19; E11.65 Type 2 diabetes mellitus with hyperglycemia; I35.1 Nonrheumatic aortic (valve) insufficiency; I11.9 Hypertensive heart disease without heart failure; I48.0 Paroxysmal atrial fibrillation; E78.5 Hyperlipidemia, unspecified; J32.0 Chronic maxillary sinusitis; Z82.5 Family history of asthma and other chronic lower respiratory diseases; Z80.0 Family history of malignant neoplasm of digestive organs; Z79.899 Other long term (current) drug therapy; Z79.01 Long term (current) use of anticoagulants
CPT/HCPCS: 36415; 70450; 70551; 71045; 80048; 80053; 80061; 80307; 81001; 82962; 83735; 83880; 84484; 85025; 85610; 85730; 86850; 86900; 86901; 87426; 87804; 92610; 93005; 93306; 93312; 93886; 96360; 96361; 96372; 97110; 97116; 97163; 97530; 99152; 99291; 99292; G0378; J1815; J2250

== ENCOUNTER 2025-06-30 11:49 | Inpatient (IN) | payer OTHER ==
[~2025-06-30] VITALS: Ht 188 cm; Wt 93.5 kg
[~2025-06-30 11:49] MED LIST changes: +ASPI-325 PO
--- NOTE | 2025-06-30 12:59 | ECG ---
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
--- NOTE | 2025-06-30 13:15 | ED.PDOC ---
History of Present Illness HPI Comments 65 y/o M, with PMHx of CVA, AFib, DM, and HTN presents to the ED for CC of headache. Patient states, he has had a generalized headache x1week. Patient further reports, new onset anxiety starting today (06/30/25) d/t symptoms. Patient comments that he previously had a stroke and symptoms feel similar; no weakness or facial droop are noted at this time. Patient denies nausea, vomiting, sudden loss of vision, dizziness, or loss of balance. No other symptoms or modifying factors are present at this time. Chief Complaint: Headache Time Seen by MD: 13:00 Primary Care Provider: Dr. Tenorio Reviewed Notes: Nurses Notes, Medications, Allergies Allergies: Coded Allergies: NO KNOWN ALLERGIES (Unverified , 10/06/24) Home Meds Active Scripts Aspirin (Aspirin Low Dose) 81 Mg Tab, 81 MG PO DAILY for 30 Days, #30 TAB 2 Refills Prov:DEBBY HERNANDEZ RESIDENT 05/04/25 Diltiazem HCl Coated Beads (Cardizem Cd) 120 Mg Cap, 120 MG PO DAILY for 30 Days, #30 CAP 2 Refills Prov:BELLO NAVA MAGNAFLUX OPERATOR 12/08/24 Reported Medications Metoprolol Succinate (Metoprolol Succinate Er) 50 Mg Tab, 1 TAB PO DAILY, #30 TAB 5 Refills 03/20/25 Atorvastatin Calcium (Lipitor) 20 Mg Tab, 20 MG PO HS 12/07/24 Apixaban Base (ELIQUIS) 5 Mg Tab, 1 TAB PO BID 12/07/24 Metformin Hydrochloride (Metformin Hcl) 1,000 Mg Tab, 1 TAB PO BID 12/07/24 Information Source: Patient Mode of Arrival: Ambulatory Severity: Moderate Timing: Weeks Duration: Since onset Prehospital treatment: None Past Medical History PAST MEDICAL HISTORY: AFIB, CVA, DM, HTN Surgical History: Denies all surgeries Family History Family History: Reviewed,noncontributory to illness Social History Smoker: Non-Smoker Alcohol: Occasionally Drugs: Denies Drug Use Lives In: Home Constitutional: denies: chills, diaphoresis, fatigue, fever, malaise, sweats, weakness, others EENTM: denies: blurred vision, double vision, ear bleeding, ear discharge, ear drainage, ear pain, ear ringing, eye pain, eye redness, hearing loss, mouth pain, mouth swelling, nasal discharge, nose bleeding, nose congestion, nose pain, photophobia, tearing, throat pain, throat swelling, voice changes, others Respiratory: denies: cough, hemoptysis, orthopnea, SOB at rest, shortness of breath, SOB with excertion, stridor, wheezing, others Cardiovascular: denies: chest pain, dizzy spells, diaphoresis, Dyspnea on exertion, edema, irregular heart beat, left arm pain, lightheadedness, palpitations, PND, syncope, others Gastrointestinal: denies: abdomen distended, abdominal pain, blood streaked bowels, constipated, diarrhea, dysphagia, difficulty swallowing, hematemesis, melena, nausea, poor appetite, poor fluid intake, rectal bleeding, rectal pain, vomiting, others Genitourinary: denies: burning, dysuria, flank pain, frequency, hematuria, incontinence, penile discharge, penile sore, pain, testicle pain, testicle swelling, urgency, others Neurological: reports: headache; denies: dizziness, fainting, left sided numbness, left sided weakness, numbness, paresthesia, pre-existing deficit, right sided numbness, right sided weakness, seizure, speech problems, tingling, tremors, weakness, others Musculoskeletal: denies: back pain, gout, joint pain, joint swelling, muscle pain, muscle stiffness, neck pain, others Integumetry: denies: bruises, change in color, change in hair/nails, dryness, laceration, lesions, lumps, rash, wounds, others Allergic/Immunocompromised: denies: Difficulty Healing, Frequent Infections, Hives, Itching, others Hematologic/Lymphatic: denies: anemia, blood clots, easy bleeding, easy bruising, swollen glands, others Endocrine: denies: excessive hunger, excessive sweating, excessive thirst, excessive urination, flushing, intolerance to cold, intolerance to heat, unexplained weight gain, unexplained weight loss, others Psychiatric: denies: anxiety, bipolar disorder, depression, hopeless, panic disorder, schizophrenia, sleepless, suicidal, others All Other Systems: Reviewed and Negative Physical Exam General Appearance: No Apparent Distress, Normal HEENT: Normal ENT Inspection, Pharynx Normal Neck: Full Range of Motion, Non-Tender, Normal, Normal Inspection Respiratory: Chest Non-Tender, Lungs Clear, No Accessory Muscle Use, No Respiratory Distress, Normal Breath Sounds Cardiovascular: No Edema, No Murmur, No Gallop, Normal Peripheral Pulses, Regular Rate/Rhythm Breast Exam: Deferred Gastrointestinal: No Organomegaly, Non Tender, No Pulsatile Mass, Normal Bowel Sounds, Soft Genitalia: Deferred Pelvic: Deferred Rectal: Deferred Extremities: No calf tenderness, Normal capillary refill, Normal inspection, Normal range of motion, Non-tender, No pedal edema Musculoskeletal : Apperance: Normal Neurologic: Alert, conventional underwriter 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 Was a procedure done?: No Differential Dx Considerations may include: DEHYDRATION, ANXIETY, MIGRAINE, GENERALIZED HEADACHE, HYPERTENSIVE URGENCY X-Ray, Labs, Meds, VS Vital Signs Date Time Temp Pulse Resp B/P (MAP) Pulse Ox O2 Delivery O2 Flow Rate FiO2 06/30/25 16:24 99.3 58 22 149/76 (100) 95 99.3 06/30/25 11:59 65 06/30/25 11:51 98.2 75 18 159/100 97 98.2 Lab Test 06/30/25 14:54 06/30/25 13:55 06/30/25 12:07 Range/Units Troponin I High Sensitivity < 3 L < 3 L </=54 ng/L White Blood Count 5.5 4.4-10.8 10^3/uL Red Blood Count 4.81 4.5-5.90 10^6/uL Hemoglobin 15.6 13.5-17.5 g/dL Hematocrit 45.6 41.0-53.0 % Mean Corpuscular Volume 94.9 80.0-100.0 fL Mean Corpuscular Hemoglobin 32.4 H 28.0-32.0 pg Mean Corpuscular Hemoglobin Concent 34.2 32.0-36.0 g/dL Red Cell Distribution Width 13.9 11.8-14.3 % Platelet Count 137 L 140-450 10^3/uL Mean Platelet Volume 8.1 6.9-10.8 fL Neutrophils (%) (Auto) 68.8 37.0-80.0 % Lymphocytes (%) (Auto) 21.1 10.0-50.0 % Monocytes (%) (Auto) 8.2 0.0-12.0 % Eosinophils (%) (Auto) 1.4 0.0-7.0 % Basophils (%) (Auto) 0.5 0.0-2.0 % Neutrophils # (Auto) 3.8 1.6-8.6 10 ^3/uL Lymphocytes # (Auto) 1.2 0.4-5.4 10 ^3/uL Monocytes # (Auto) 0.5 0-1.3 10 ^3/uL Eosinophils # (Auto) 0.1 0-0.8 10 ^3/uL Basophils # (Auto) 0 0-0.2 10 ^3/uL Nucleated Red Blood Cells 0.0 % Sodium Level 142 136-145 mmol/L Potassium Level 4.2 3.5-5.1 mmol/L Chloride Level 108 H 98-107 mmol/L Carbon Dioxide Level 24 20-31 mmol/L Anion Gap 10 5-15 Blood Urea Nitrogen 9 9-23 mg/dL Creatinine 0.87 0.700-1.30 mg/dL Glomerular Filtration Rate Calc 95 >90 mL/min BUN/Creatinine Ratio 10.3 10.0-20.0 Serum Glucose 120 H 74-106 mg/dL Calcium Level 9.5 8.7-10.4 mg/dL POC Glucose 126 H 70-106 mg/dl [place] [id number] Ph: [phone] DIAGNOSTIC IMAGING Diagnostic Imaging Report : [id number] Signed PATIENT: YAN RIBEIRO ACCT: [id number] UNIT: [id number] : 1960 LOC: ER ROOM / BED: / AGE / SEX: 65 / M ADM STATUS: REG ER SERVICE 1327 ORDERING PHYSICIAN: CHANDA FAM MD PROCEDURE(s): CXRP - CHEST PORTABLE REASON: Dizziness, HTN ORDER NUMBER(s): [id number], ACCESSION NUMBER(s): [id number] CHEST RADIOGRAPH REASON FOR EXAM: Dizziness, HTN COMPARISON: XY CHEST PORTABLE on DOS: 04/25/25, XY CHEST XRAY 1 VIEW on DOS: 03/19/25, XY CHEST XRAY 1 VIEW on DOS: 12/11/24, XY CHEST PORTABLE on DOS: 12/07/24, XY CHEST PORTABLE on DOS: 10/08/24 TECHNIQUE: One view of the chest is provided FINDINGS: The cardiomediastinal silhouette is within normal limits for technique. There is no focal airspace disease. There is no significant pleural effusion. No acute bony abnormality is identified. IMPRESSION: No radiographic evidence of acute cardiopulmonary process. ATED BY: JONO BALLARD MD DICTATED DATE/TIME: 06/30/251403 SIGNED BY: JONO BALLARD MD SIGNED DATE/TIME: 06/30/251403 CC: [place] [id number] Ph: [phone] DIAGNOSTIC IMAGING Diagnostic Imaging Report : [id number] Signed PATIENT: YAN RIBEIRO ACCT: [id number] UNIT: [id number] : 1960 LOC: ER ROOM / BED: / AGE / SEX: 65 / M ADM STATUS: REG ER SERVICE 1327 ORDERING PHYSICIAN: CHANDA FAM MD PROCEDURE(s): HWOCT - HEAD WITHOUT CONTRAST REASON: dizziness ORDER NUMBER(s): [id number], ACCESSION NUMBER(s): [id number] EXAM: CT HEAD WITHOUT CONTRAST INDICATION: dizziness TECHNIQUE: CT images of the head were obtained without administration of IV contrast. CT scans at this facility use dose modulation, iterative reconstruction, and/or weight based dosing when appropriate to reduce radiation dose to as low as reasonably achievable. COMPARISON: MRI BRAIN HEAD WO CONTRAST on DOS: 04/26/25 FINDINGS: PARENCHYMA: No acute hemorrhage. There is no mass effect, midline shift, or herniation. Area hypoattenuation located within the left paramidline destiny measuring 1.4 cm, increasing conspicuity when compared to prior examination in the and underlying acute infarction not excluded Mild scattered hypoattenuation along the periventricular, centrum semiovale, and deep white matter tracts, which are nonspecific however statistically most likely represent chronic microvascular ischemic change. VENTRICLES: No hydrocephalus. EXTRA-AXIAL SPACES: No extra-axial fluid collections. OTHER: The bony structures are intact. Mild scattered paranasal sinus mucosal thickening. IMPRESSION: 1. Area of hypoattenuation located within the left paramidline destiny measuring 1.4 cm, increasing conspicuity when compared to prior examination in the and underlying acute infarction not excluded. 2. Consider further evaluation with MRI. ATED BY: JACOB BECKFORD MD DICTATED DATE/TIME: 06/30/251407 SIGNED BY: JACOB BECKFORD MD SIGNED DATE/TIME: 06/30/251407 CC: Time of 1ST Reevaluation: 13:30 Reevaluation 1ST: Unchanged Patient Education/Counseling: Diagnosis, Treatment Family Education/Counseling: No Family Present SEPSIS Sepsis Screen Date sepsis recognized/suspect: Jun 30, 2025 Time Sepsis recognized/suspect: 1154 Recent Procedure: No On Antibiotic Therapy: No Respiratory Rate >20: No Heart Rate >90: No Temp<36 C (96.8 F) or >38.3 C: No SBP <90 or MAP <65 mmHG: No New Acute Mental Status Change: No Is the patient on CPAP, BIPAP,: No Physician Orders Urinalysis (06/30/25 13:27) Chest Portable (06/30/25 13:27) Head Without Contrast (06/30/25 13:27) Electrocardigram (06/30/25 13:27) Troponin-I Hs (06/30/25 16:27) Electrocardigram (06/30/25 14:27) Electrocardigram (06/30/25 16:27) Vital Signs Date Time Temp Pulse Resp B/P (MAP) Pulse Ox O2 Delivery O2 Flow Rate FiO2 06/30/25 16:24 99.3 58 22 149/76 (100) 95 99.3 06/30/25 11:59 65 06/30/25 11:51 98.2 75 18 159/100 97 98.2 Laboratory Tests Test 06/30/25 13:55 White Blood Count 5.5 10^3/uL (4.4-10.8) Departure 1 Departure Time of Disposition: 16:47 (Patient presented with hypertension and symptoms concerning for hypertensive emergency. Patient is receiving iv blood pressure medications requiring intensive monitoring. Data: 1. I ordered and reviewed the result of at least 3 labs including a CBC, BMP, and Urinalysis. 2. I indepe ndently interpreted the following tests: CT Brain: Which appears with we will evolving CVA. EKG which is Normal Sinus RhythmRisk:This patient has a high risk of morbidity due to further diagnostic testing or treatment and may suffer from an acute cardiac disorder. Workup reveals hypertensive emergency and patient should be admitted for further workup. and possible expert consultation. ) Impression: Primary Impression: Hypertensive emergency Additional Impressions: Paresthesias Migraine Disposition: ADMITTED INPATIENT Admit to: Tele Condition: Guarded Critical Care Note Critical Care Time?: Yes Critical care comment: Hypertensive emergency Authorized and Performed by: Chanda Fam MD Total critical care time: Approximately 38 minutes Due to a high probability of clinically significant, life threatening deterioration, the patient required my highest level of preparedness to intervene emergently and I personally spent this critical care time directly and personally managing the patient. This critical care time included obtaining a history; examining the patient; pulse oximetry; ordering and review of studies; arranging urgent treatment with development of a management plan; evaluation of patient's response to treatment; frequent reassessment; and, discussions with other providers. This critical care time was performed to assess and manage the high probability of imminent, life-threatening deterioration that could result in multi-organ failure. It was exclusive of separately billable procedures and treating other patients and teaching time. Please see my other sections and the rest of the note for further information on patient assessment and treatment. Stability Stability form required: No Heart Score Heart Score: Heart Score Response (Comments) Value History N/A 0 EKG N/A 0 Age N/A 0 Risk Factors N/A 0 Troponin N/A 0 Total 0 I personally scribed for CHANDA FAM MD ([email or web address]) on 06/30/25 at 13:15. Electronically submitted by Edwige Frank ([email or web address]). I personally scribed for CHANDA FAM MD ([email or web address]) on 06/30/25 at 15:01. Electronically submitted by Edwige Frank ([email or web address]). I personally scribed for CHANDA FAM MD ([email or web address]) on 06/30/25 at 15:03. Electronically submitted by Edwige Frank ([email or web address]). CHANDA FAM MD Jun 30, 2025 13:15
--- NOTE | 2025-06-30 14:06 | DVH ---
CHEST RADIOGRAPH REASON FOR EXAM: Dizziness, HTN COMPARISON: XY CHEST PORTABLE on DOS: 04/25/25, XY CHEST XRAY 1 VIEW on DOS: 03/19/25, XY CHEST XRAY 1 VIEW on DOS: 12/11/24, XY CHEST PORTABLE on DOS: 12/07/24, XY CHEST PORTABLE on DOS: 10/08/24 TECHNIQUE: One view of the chest is provided FINDINGS: The cardiomediastinal silhouette is within normal limits for technique. There is no focal a irspace disease. There is no significant pleural effusion. No acute bony abnormality is identified. IMPRESSION: No radiographic evidence of acute cardiopulmonary process.
--- NOTE | 2025-06-30 14:10 | DVH ---
EXAM: CT HEAD WITHOUT CONTRAST INDICATION: dizziness TECHNIQUE: CT images of the head were obtained without administration of IV contrast. CT scans at [facility] facility use dose modulation, iterative reconstruction, and/or weight based dosing when appropriate to reduce radiation dose to as low as reasonably achievable. COMPARISON: MRI BRAIN HEAD WO CONTRAST on DOS: 04/26/25 FINDINGS: PARENCHYMA: No acute hemorrhage. There is no mass effect, midline shift, or herniation. Area hypoatte nuation located within the left paramidline destiny measuring 1.4 cm, increasing conspicuity when compar ed to prior examination in the and underlying acute infarction not excluded Mild scattered hypoattenu ation along the periventricular, centrum semiovale, and deep white matter tracts, which are nonspecif ic however statistically most likely represent chronic microvascular ischemic change. VENTRICLES: No hydrocephalus. EXTRA-AXIAL SPACES: No extra-axial fluid collections. OTHER: The bony structures are intact. Mild scattered paranasal sinus mucosal thickening. IMPRESSION: 1. Area of hypoattenuation located within the left paramidline destiny measuring 1.4 cm, increasing cons picuity when compared to prior examination in the and underlying acute infarction not excluded. 2. Consider further evaluation with MRI.
[2025-06-30 14:15] LABS: Hematocrit 45.6 % (41.0-53.0); Hemoglobin 15.6 g/dL (13.5-17.5); Mean Corpuscular Hemoglobin 32.4 pg (28.0-32.0); Mean Corpuscular Volume 94.9 fL (80.0-100.0); Nucleated Red Blood Cells % 0.0 %
[2025-06-30 14:18] LABS: Potassium 4.2 mmol/L (3.5-5.1); Sodium 142 mmol/L (136-145)
[2025-06-30 14:19] LABS: Anion Gap 10 (5-15); Calcium 9.5 mg/dL (8.7-10.4); Carbon Dioxide 24 mmol/L (20-31)
[2025-06-30 14:22] LABS: Chloride 108 mmol/L (98-107)
[2025-06-30 14:24] LABS: BUN/Creatinine Ratio 10.3 (10.0-20.0)
[2025-06-30 14:32] LABS: Blood Urea Nitrogen 9 mg/dL (9-23); Glucose 120 mg/dL (74-106)
[2025-06-30] MEDS: hydrALAZINE HCL 20 MG/ML VL IV ONE (17:38)
--- NOTE | 2025-06-30 20:26 | DVHHPRES ---
History of Present Illness Resident Creating Document: INGRID HARRISON RESIDENT History of Present Illness This is a 65-year-old male with past medical history of atrial fibrillation, diabetes mellitus, hypertension, stroke, presented to the ER with chief complain of elevated blood pressure, headache, lightheadedness. He measured blood pressure at home, which was elevated and urged his visit to the ER in context of a stroke 7 weeks ago. He complained of headaches since last 2 weeks, described as dull, 2/10, improves with walking. He has associated dizziness with feeling of losing balance, did not sustain a fall. He also complained of pain in right upper abdomen, described as dull, 1/10, increases with sleeping on right side. Seven weeks ago, he presented with right-sided weakness (face, upper and lower limbs), and was diagnosed with ischemic stroke in [facility]. He is currently receiving physical therapy for rehabilitation. He denies shortness of breaths, chest pain, palpitations, fever, chills, recent travel. Previous hospitalization: 7 weeks ago for ischemic stroke PMHx: Paroxysmal atrial fibrillation (chads Vasc 5), diabetes mellitus, hypertension, stroke PSHx: No significant surgeries Social history: Never smoked tobacco, denies alcohol or recreational drug use. [place] Code: DNR DNI. Next of kin: daughter Home medication: Eliquis, aspirin, atorvastatin, metformin, metoprolol Allergic history: No significant allergies Patient was examined at bedside today. No new complaints. He is admitted for further evaluation and management. Review of Systems Cardiovascular: Lt Headedness Neurological: Other (Headache) Other Insomnia Allergies: Coded Allergies: NO KNOWN ALLERGIES (Unverified , 10/06/24) Exam Vital Signs Vital Signs Date Time Temp Pulse Resp B/P (MAP) Pulse Ox O2 Delivery O2 Flow Rate FiO2 06/30/25 19:47 97.8 77 16 133/67 (89) 99 97.8 Exam General: Patient alert and oriented in person, place and time. Patient following commands. HEENT: Poor oral hygiene. Normocephalic, atraumatic, moist mucous membranes Respiratory/pulmonary: Clear lungs bilaterally, vesicular murmurs present in almost all lung amaral, no associated crackles or wheezes. Cardiovascular: Normal heart sounds S1 and S2 with no associated murmurs Abdomen: Abdomen nondistended, there is no pain to palpation in any of the abdominal quadrants, no palpable masses. Extremities: There is no peripheral edema present at the lower extremities. Peripheral Pulses: 3+ Radial (R). 3+ Radial (L). 3+ Dorsalis pedis (R). 3+ Herman salis pedis(L) Skin: No rashes or pruritus, there is no sacral edema present at this time. Neurological: Motor strength 5 in 5 in bilateral upper and lower extremities, intact sensations bilaterally, gait WNL. Intact cranial nerves with no focal neurologic deficits. Labs/Xrays Labs Test 06/30/25 17:26 06/30/25 13:55 06/30/25 12:07 Range/Units Troponin I High Sensitivity < 3 L </=54 ng/L White Blood Count 5.5 4.4-10.8 10^3/uL Red Blood Count 4.81 4.5-5.90 10^6/uL Hemoglobin 15.6 13.5-17.5 g/dL Hematocrit 45.6 41.0-53.0 % Mean Corpuscular Volume 94.9 80.0-100.0 fL Mean Corpuscular Hemoglobin 32.4 H 28.0-32.0 pg Mean Corpuscular Hemoglobin Concent 34.2 32.0-36.0 g/dL Red Cell Distribution Width 13.9 11.8-14.3 % Platelet Count 137 L 140-450 10^3/uL Mean Platelet Volume 8.1 6.9-10.8 fL Neutrophils (%) (Auto) 68.8 37.0-80.0 % Lymphocytes (%) (Auto) 21.1 10.0-50.0 % Monocytes (%) (Auto) 8.2 0.0-12.0 % Eosinophils (%) (Auto) 1.4 0.0-7.0 % Basophils (%) (Auto) 0.5 0.0-2.0 % Neutrophils # (Auto) 3.8 1.6-8.6 10 ^3/uL Lymphocytes # (Auto) 1.2 0.4-5.4 10 ^3/uL Monocytes # (Auto) 0.5 0-1.3 10 ^3/uL Eosinophils # (Auto) 0.1 0-0.8 10 ^3/uL Basophils # (Auto) 0 0-0.2 10 ^3/uL Nucleated Red Blood Cells 0.0 % Sodium Level 142 136-145 mmol/L Potassium Level 4.2 3.5-5.1 mmol/L Chloride Level 108 H 98-107 mmol/L Carbon Dioxide Level 24 20-31 mmol/L Anion Gap 10 5-15 Blood Urea Nitrogen 9 9-23 mg/dL Creatinine 0.87 0.700-1.30 mg/dL Glomerular Filtration Rate Calc 95 >90 mL/min BUN/Creatinine Ratio 10.3 10.0-20.0 Serum Glucose 120 H 74-106 mg/dL Calcium Level 9.5 8.7-10.4 mg/dL POC Glucose 126 H 70-106 mg/dl SEPSIS Sepsis Screen Date sepsis recognized/suspect: Jun 30, 2025 Time Sepsis recognized/suspect: 1153 Recent Procedure: No On Antibiotic Therapy: No Respiratory Rate >20: No Heart Rate >90: No Temp<36 C (96.8 F) or >38.3 C: No SBP <90 or MAP <65 mmHG: No New Acute Mental Status Change: No Is the patient on CPAP, BIPAP,: No Physician Orders Urinalysis (06/30/25 13:27) Chest Portable (06/30/25 13:27) Head Without Contrast (06/30/25 13:27) Electrocardigram (06/30/25 13:27) Electrocardigram (06/30/25 14:27) Electrocardigram (06/30/25 16:27) Vital Signs Date Time Temp Pulse Resp B/P (MAP) Pulse Ox O2 Delivery O2 Flow Rate FiO2 06/30/25 19:47 97.8 77 16 133/67 (89) 99 97.8 06/30/25 17:38 149/76 06/30/25 16:24 99.3 58 22 149/76 (100) 95 99.3 Laboratory Tests Test 06/30/25 13:55 White Blood Count 5.5 10^3/uL (4.4-10.8) Medications Medications Dose Ordered Sig/Karthikeyan Route Start Time Stop Time Status Last Admin Dose Admin Hydralazine HCl 10 mg ONCE ONCE IV 06/30/25 17:00 06/30/25 17:01 DC 06/30/25 17:38 10 MG Assessment/Plan Assessment/Plan Presyncope, rule out ischemic stroke Hemorrhagic stroke, ruled out History of stroke (7 weeks ago) CXR shows No radiographic evidence of acute cardiopulmonary process. CT shows Area of hypoattenuation located within the left paramidline destiny measuring 1.4 cm MRI head ordered Serology positive for COVID-19 Echocardiogram from 04/29 shows LVEF 65% Telemetry to monitor for life-threatening arrhythmias Paroxysmal atrial fibrillation on anticoagulation in sinus rhythm Ordered enoxaparin 1 mg/kg q.12; Home medication Eliquis Continue metoprolol Continue aspirin 81 mg daily Essential hypertension Continue metoprolol 50 mg daily Pjx-wiwhmdp-hjokabfeu type 2 Diabetes mellitus History of Hyperlipidemia Continue atorvastatin 40 mg daily Sliding scale with basal insulin A1c 6.1 Monitor blood glucose Diabetes education Diabetic diet Mild Sliding scale insulin Thrombocytopenia Continue monitoring DIET: NPO DVT PROPHYLAXIS: Lovenox therapeutic dose GI PROPHYLAXIS: Protonix CODE STATUS: Goals of care discussed with patient, nurses at bedside for more than 37 minutes. DNR DNI DISPOSITION: Telemetry Patient's status and plan discussed with the patient. Case discussed with Dr. Case. Plan discussed with: Patient, Other (Nurses) Date of Service: Jun 30, 2025 Billing Provider: INGRID HARRISON Common Visit Codes: 10200-[id number] INP/OBS CARE (HIGH) Secondary Visit Codes: 15524-[id number] CARE PLAN 30 MINUTES INGRID HARRISON Jun 30, 2025 20:26 ERIC MIRZA Jul 01, 2025 01:12
[2025-06-30 21:13] LABS: Magnesium 1.9 mg/dL (1.6-2.6); Triglycerides 66.0 mg/dL (< 150)
[2025-06-30 21:15] LABS: Cholesterol 113.0 mg/dL (< 200); HDL Cholesterol 50.0 mg/dL (40-59)
[2025-06-30 21:33] LABS: Lipase 33.0 U/L (12-53)
[2025-06-30 21:46] LABS: INR 1.04 (0.9-1.15); Partial Thromboplastin Time 29.1 SEC (24.5-34.5); Prothrombin Time 11.0 sec (9.3-11.8)
[2025-06-30] MEDS ORDERED: ACETAMINOPHEN 325 MG TAB PO PRN (22:00)
[2025-06-30] MEDS ORDERED: MORPHINE SULFATE INJ 2 MG/ml SYRG IV PRN (22:00)
[2025-06-30] MEDS: METOPROLOL SUCCINATE XL 50 MG TAB PO ONE (22:00)
[2025-06-30] MEDS ORDERED: DEXTROSE (50%) 50ML SYRG IV PRN (22:00)
[2025-06-30 22:43] VITALS: PULSE 71; RESP 16; O2SAT 97
[2025-06-30] MEDS: ACCU-CHEK COMFORT CURVE STRIP VI SCH (22:49)
[2025-06-30] MEDS: PANTOPRAZOLE 40 MG TAB PO ONE (22:53)
[2025-06-30] MEDS: ATORVASTATIN 20 MG TAB PO ONE (22:58)
[2025-06-30] MEDS: InsuLIN REG 1unit/0.01ml Soln (100units/ml) SC SCH (22:58)
[2025-06-30] MEDS: SODIUM CHLORIDE 0.9% 1,000 ML IV SCH (22:59)
[2025-06-30 23:50] VITALS: BP 141/81; PULSE 57; RESP 18; TEMP 98; O2SAT 100
[2025-07-01] VITALS (9 sets, daily range): BP systolic 132–161; BP diastolic 77–99; PULSE 54–104; RESP 16–20; TEMP 97.8–98; O2SAT 97–100
[2025-07-01] MEDS: ENOXAPARIN SOD 100 MG/1 ML SYRINGE SC SCH (01:08)
[2025-07-01] MEDS: PANTOPRAZOLE 40 MG TAB PO SCH (05:23)
[2025-07-01 06:05] LABS: Hematocrit 42.0 % (41.0-53.0); Hemoglobin 14.5 g/dL (13.5-17.5); Mean Corpuscular Hemoglobin 32.7 pg (28.0-32.0); Mean Corpuscular Volume 94.5 fL (80.0-100.0); Nucleated Red Blood Cells % 0.1 %
[2025-07-01 06:15] LABS: Alanine Aminotransferase 38 U/L (7-40); Albumin 4.0 g/dL (3.2-4.8); Alkaline Phosphatase 61 U/L (46-116); Anion Gap 7 (5-15); BUN/Creatinine Ratio 14.3 (10.0-20.0); Bilirubin, Total 0.8 mg/dL (0.2-1.0); Blood Urea Nitrogen 12 mg/dL (9-23); Calcium 9.1 mg/dL (8.7-10.4); Carbon Dioxide 26 mmol/L (20-31); Glucose 93 mg/dL (74-106); Potassium 4.0 mmol/L (3.5-5.1); Sodium 143 mmol/L (136-145); Total Protein 6.8 g/dL (5.7-8.2)
[2025-07-01 06:23] LABS: Bilirubin, Direct 0.3 mg/dL (<0.3); Chloride 110 mmol/L (98-107)
[2025-07-01] MEDS: METOPROLOL SUCCINATE XL 50 MG TAB PO SCH (09:12)
--- NOTE | 2025-07-01 11:38 | DVH ---
CLINICAL HISTORY: Presyncope; hx of ischemic stroke 7 weeks ago TECHNIQUE: Routine multiplanar imaging of the brain was performed without gadolinium contrast. COMPARISON: CT HEAD WITHOUT CONTRAST on DOS: 06/30/25, MRI BRAIN HEAD WO CONTRAST on DOS: 04/26/25, CT HEAD WITHOUT CONTRAST on DOS: 04/25/25, CT HEAD WITHOUT CONTRAST on DOS: 10/08/24 FINDINGS: There is no abnormal restricted diffusion to suggest acute infarction. There is mild brain volume loss. There is a large old left pontine infarct. Few scattered T2 hyperint ense foci within the white matter both cerebral hemispheres is of doubtful clinical significance. There is no evidence for acute ischemic changes, mass, mass effect, or extra-axial fluid collection. There is no hydrocephalus or midline shift. The cerebral sulci and subarachnoid cisterns are not effa juana. The imaged paranasal sinuses demonstrate a left maxillary sinus mucous retention cyst The globes are intact. The midline structures, including the corpus callosum, are unremarkable. The intracranial flow voids are maintained. IMPRESSION: No acute intracranial abnormality seen. No evidence for acute infarct. Large old left pontine infarct.
[2025-07-01] MEDS: hydrALAZINE HCL 20 MG/ML VL IV ONE (14:09)
--- NOTE | 2025-07-01 15:18 | DVHPNRES ---
Progress Note Date Seen: Jul 01, 2025 Resident Creating Document: EVE LUIS RESIDENT Medical Necessity Reason Pt with a Central, PICC or Fol: No Subjective Review of Systems Aristeo Romero is a 65-year-old male with past medical history of atrial fibrillation, diabetes mellitus, hypertension, stroke, who presented to the ER with the chief complaint of elevated blood pressure, headache, lightheadedness. He measured blood pressure at home, which was elevated and urged his visit to the ER in context of a stroke 7 weeks ago. He complained of headaches since last 2 weeks, described as dull, 2/10, improves with walking. He has associated dizziness with feeling of losing balance, did not sustain a fall. He also complained of pain in right upper abdomen, described as dull, 1/10, increases with sleeping on right side. Seven weeks ago, he presented with right-sided weakness (face, upper and lower limbs), and was diagnosed with ischemic stroke in [facility]. He is currently receiving physical therapy for rehabilitation. He denies shortness of breaths, chest pain, palpitations, fever, chills, recent travel. Previous hospitalization: 7 weeks ago for ischemic stroke PMHx: Paroxysmal atrial fibrillation (chads Vasc 5), diabetes mellitus, hypertension, stroke PSHx: No significant surgical history Social history: Never smoked tobacco, denies alcohol or recreational drug use. [place] Home medication: Eliquis, aspirin, atorvastatin, metformin, metoprolol Allergic history: No significant allergies Patient was examined at bedside today. He complains of slight headache. Eyes: No Pain, No Vision change, No Conjunctivae inflammation, No Eyelid inflammation, No Redness ENT: No Ear pain, No Ear discharge, No Nose pain, No Nose discharge, No Nose congestion, No Mouth pain, No Mouth swelling, No Throat pain, No Throat swelling Cardiovascular: No Chest Pain, No Palpitations, No Orthopnea, No Paroxysmal No Dyspnea, No Edema, No Lt Headedness Respiratory: No Cough, No Dry, No Shortness of breath, No SOB with exertion, No Wheezing, No Hemoptysis, No Pleuritic Pain, No Sputum Gastrointestinal: No Nausea, No Vomiting, No Abdominal Pain, No Diarrhea, No Constipation, No Melena, No Hematochezia Genitourinary: No Dysuria, No Frequency, No Incontinence, No Hematuria, No Retention Objective vital signs Vital Sign Date Time Temp Pulse Resp B/P (MAP) Pulse Ox O2 Delivery O2 Flow Rate FiO2 07/01/25 14:09 189/89 07/01/25 13:00 98.0 66 16 99 98.0 06/30/25 23:50 Room Air* 0 21 Total Intake and Output 06/30/25 06/30/25 07/01/25 15:00 23:00 07:00 Intake Total 0 ml Balance 0 ml medications Current Medications Medications Dose Ordered Sig/Karthikeyan Route Start Time Stop Time Status Last Admin Dose Admin Sodium Chloride 1,000 ml @ 120 mls/hr Q8H20M IV 06/30/25 22:00 07/01/25 05:23 120 MLS/HR Acetaminophen 325 mg Q4HP PRN PO 06/30/25 22:00 Morphine Sulfate 2 mg Q4HPRN PRN IV 06/30/25 22:00 Enoxaparin Sodium 100 mg Q12HR SC 06/30/25 22:00 07/01/25 09:12 100 MG Diagnostic Test (Pha) 1 strip ACHS 06/30/25 22:00 07/01/25 06:20 1 STRIP Insulin Human Regular ACHS SC 06/30/25 22:00 06/30/25 22:58 3 UNITS Dextrose 50 ml UD PRN IV 06/30/25 22:00 Atorvastatin Calcium 40 mg HS PO 07/01/25 22:00 Aspirin 81 mg DAILY PO 07/01/25 10:00 07/01/25 09:11 81 MG Metoprolol Succinate 50 mg DAILY PO 07/01/25 10:00 07/01/25 09:12 50 MG Pantoprazole Sodium 40 mg DAILY@0600 PO 07/01/25 06:00 07/01/25 05:23 40 MG Examination General: Patient alert and oriented in person, place and time. Patient following commands. HEENT: Poor oral hygiene. Normocephalic, atraumatic, moist mucous membranes Respiratory/pulmonary: Clear lungs bilaterally, vesicular murmurs present in almost all lung amaral, no associated crackles or wheezes. Cardiovascular: Normal heart sounds S1 and S2 with no associated murmurs Abdomen: Abdomen nondistended, there is no pain to palpation in any of the abdominal quadrants, no palpable masses. Extremities: There is no peripheral edema present at the lower extremities. Peripheral Pulses: 3+ Radial (R). 3+ Radial (L). 3+ Dorsalis pedis (R). 3+ Dorsalis pedis(L) Skin: No rashes or pruritus, there is no sacral edema present at this time. Neurological: Motor strength 5 in 5 in bilateral upper and lower extremities, intact sensations bilaterally, gait WNL. Intact cranial nerves with no focal neurologic deficits. laboratory and microbiology Laboratory Tests 07/01/25 05:35 Test 07/01/25 05:35 Range/Units Serum Glucose 93 74-106 mg/dL Labs and/or images reviewed: Labs reviewed by me, Image(s) reviewed by me Problem List/Assessment/Plan Problem List/Assessment/Plan Presyncope, rule out ischemic stroke Hemorrhagic stroke, ruled out History of stroke (7 weeks ago) CXR shows No radiographic evidence of acute cardiopulmonary process. CT shows Area of hypoattenuation located within the left paramidline destiny measuring 1.4 cm MRI head showed no acute changes Serology positive for COVID-19 Echocardiogram from 04/29 shows LVEF 65% Telemetry to monitor for life-threatening arrhythmias Paroxysmal atrial fibrillation on anticoagulation in sinus rhythm Ordered enoxaparin 1 mg/kg q.12; Home medication Eliquis Continue metoprolol Continue aspirin 81 mg daily Hypertensive urgency Continue metoprolol 50 mg daily hydralazine 10mg iv q6 prn monitor vitals Lax-dhwgkaa-cliglmhsc type 2 Diabetes mellitus History of Hyperlipidemia Continue atorvastatin 40 mg daily Sliding scale with basal insulin A1c 6.1 Monitor blood glucose Diabetes education Diabetic diet Mild Sliding scale insulin Thrombocytopenia Continue monitoring DIET: regular diet DVT PROPHYLAXIS: Lovenox therapeutic dose GI PROPHYLAXIS: Protonix CODE STATUS: Goals of care discussed with patient for 20 minutes; full code Patient's status and plan discussed with the patient. Plan was discussed with Dr Flowers. Plan discussed with: Patient, Other (Nurse) My Orders My Orders Orders - EVE LUIS RESIDENT Procedure Category Date Status Time Regular Diet DIET 07/01/25 Transmitted Dinner Date of Service: Jul 01, 2025 Billing Provider: YASMINE FLOWERS MD Common Visit Codes: [id number] INP/OBS CARE(HIGH) Secondary Visit Codes: 52837-[id number] CARE PLAN 30 MINUTES (20 minutes) Addendum Addendum Addendum I was physically present for the vazquez portions of the service provided to patient by THE RESIDENT. I have reviewed the documentation, discussed the case with resident and agree with the resident's documentation except as noted. Also the patient's clinical case was discussed with the patient's nurse. This medical document was created using an electronic medical record system with computerized dictation system. Although this document has been carefully reviewed, there might still be some phonetic and typographical errors. These areas are purely typographical due to imperfections of the software programs, and do not reflect any compromise in the patient's medical care. Late signature. EVE LUIS RESIDENT Jul 01, 2025 15:18 YASMINE FLOWERS MD Jul 02, 2025 08:08
[2025-07-01 18:23] LABS: COVID19 ANTIGEN SOFIA FIA NEGATIVE (NEGATIVE)
[2025-07-01] MEDS: ATORVASTATIN 20 MG TAB PO SCH (21:57)
[2025-07-02 01:00] VITALS: BP 144/83; PULSE 62; RESP 19; TEMP 97.8; O2SAT 97
[2025-07-02 05:00] VITALS: BP 139/79; PULSE 98; RESP 17; TEMP 97.8; O2SAT 98
[2025-07-02 06:25] LABS: Anion Gap 10 (5-15); Carbon Dioxide 25 mmol/L (20-31); Chloride 107 mmol/L (98-107); Potassium 3.9 mmol/L (3.5-5.1); Sodium 142 mmol/L (136-145)
[2025-07-02 06:26] LABS: Hematocrit 42.2 % (41.0-53.0); Hemoglobin 14.7 g/dL (13.5-17.5); Mean Corpuscular Hemoglobin 33.1 pg (28.0-32.0); Mean Corpuscular Volume 94.9 fL (80.0-100.0); Nucleated Red Blood Cells % 0.1 %
[2025-07-02 06:27] LABS: Calcium 9.1 mg/dL (8.7-10.4)
[2025-07-02 06:31] LABS: BUN/Creatinine Ratio 13.4 (10.0-20.0); Blood Urea Nitrogen 11 mg/dL (9-23)
[2025-07-02 06:35] LABS: Glucose 107 mg/dL (74-106)
[2025-07-02 08:00] VITALS: PULSE 77; PULSE 95; RESP 21; O2SAT 99
--- NOTE | 2025-07-02 08:09 | DVHPN2 ---
Subjective Feeling great with no complaints Reviewed: Care Plan, H&P, Labs, Medications, Previous Orders, Radiology Changes from previous H/P or p: Changes Objective Vitals Vital Signs Date Time Temp Pulse Resp B/P (MAP) Pulse Ox O2 Delivery O2 Flow Rate FiO2 07/02/25 05:00 97.8 98 17 139/79 (99) 98 97.8 07/01/25 20:00 Room Air* 0 21 Intake/Output Intake and Output 07/02/25 07:00 Intake Total 2490 ml Balance 2490 ml Intake Oral 2490 ml # Voids 12 # Bowel Movements 1 General Appearance: Alert, Oriented X3, Cooperative, No acute distress HEENT: Atraumatic Lungs: Clear to auscultation, Normal air movement Cardiovascular: Regular rate, Normal S1, Normal S2, No murmurs Abdomen: Normal bowel sounds, Soft, No tenderness Extremities: No edema Neuro: Normal speech, Cranial nerves 3-12 NL, Other (No deficits noticed) Psych/Mental Status: Mental status NL, Mood NL Medications Current Medications Medications Dose Ordered Sig/Karthikeyan Route Start Time Stop Time Status Last Admin Dose Admin Sodium Chloride 1,000 ml @ 120 mls/hr Q8H20M IV 06/30/25 22:00 07/01/25 05:23 120 MLS/HR Acetaminophen 325 mg Q4HP PRN PO 06/30/25 22:00 Morphine Sulfate 2 mg Q4HPRN PRN IV 06/30/25 22:00 Enoxaparin Sodium 100 mg Q12HR SC 06/30/25 22:00 07/01/25 21:54 100 MG Diagnostic Test (Pha) 1 strip ACHS 06/30/25 22:00 07/02/25 05:43 1 STRIP Insulin Human Regular ACHS SC 06/30/25 22:00 07/01/25 21:51 4 UNITS Dextrose 50 ml UD PRN IV 06/30/25 22:00 Atorvastatin Calcium 40 mg HS PO 07/01/25 22:00 07/01/25 21:57 40 MG Aspirin 81 mg DAILY PO 07/01/25 10:00 07/01/25 09:11 81 MG Metoprolol Succinate 50 mg DAILY PO 07/01/25 10:00 07/01/25 09:12 50 MG Pantoprazole Sodium 40 mg DAILY@0600 PO 07/01/25 06:00 07/01/25 05:23 40 MG Laboratory Results Laboratory Tests 07/02/25 05:00 Chemistry Test 07/02/25 05:00 Calcium Level 9.1 mg/dL (8.7-10.4) Labs and/or images reviewed: Labs reviewed by me, Image(s) reviewed by me Assessment/Plan Assessment/Plan Covering: Presyncope most likely related to brief bradycardia that resolved, acute hemorrhagic/ischemic stroke ruled out Old infarct with no residual deficits Paroxysmal atrial fibrillation; now in normal sinus rhythm Hypertensive heart disease with diastolic heart failure; not in exacerbation Type 2 diabetes mellitus Thrombocytopenia Dyslipidemia Overweight Was on telemetry Reviewed EKG, lab workup, and imaging studies Reviewed echocardiogram from April 2025 To discontinue home diltiazem Started on nifedipine extended release 90 mg daily To continue home aspirin and statin along with Eliquis and metoprolol succinate Was treated with therapeutic enoxaparin during admission To follow up with discharge clinic within one week and with his primary care provider within 1 to 2 weeks Treated with insulin management during admission; to resume home metformin upon discharge No symptoms/signs of bleeding Counseled the patient on the importance of adopting healthy lifestyle with diet and exercise in order to lose weight Late Entry. This medical document was created using an electronic medical record system with computerized dictation system. Although this document has been carefully reviewed, there might still be some phonetic and typographical errors. These areas are purely typographical due to imperfections of the software programs, and do not reflect any compromise in the patient's medical care. Plan discussed with: Patient, Other (Nurse) My Orders Orders - YASMINE FLOWERS MD Procedure Category Date Status Time Code Status CODE 07/01/25 Transmitted 13:00 Date of Service: Jul 02, 2025 Billing Provider: YASMINE FLOWERS MD Common Visit Codes: [id number] INP/OBS CARE(MOD) YASMINE FLOWERS MD Jul 02, 2025 08:09
[2025-07-02 09:00] VITALS: BP 154/102; PULSE 77; RESP 21; TEMP 97.7; O2SAT 99
[2025-07-02] MEDS ORDERED: CLON0.1T PO ×2 (10:29→12:11)
[2025-07-02] MEDS ORDERED: NIFE90TA75 PO ×2 (10:29→12:11)
--- NOTE | 2025-07-02 10:31 | DVHDS2 ---
Discharge Summary Date of Admission Jun 30, 2025 at 21:54 Date of Discharge: Jul 02, 2025 Labs/Diagnostic Data: Laboratory Results Test 07/02/25 05:01 07/02/25 05:00 07/01/25 17:29 07/01/25 05:35 POC Glucose 122 mg/dl (70-106) White Blood Count 5.7 10^3/uL (4.4-10.8) Red Blood Count 4.45 10^6/uL (4.5-5.90) Hemoglobin 14.7 g/dL (13.5-17.5) Hematocrit 42.2 % (41.0-53.0) Mean Corpuscular Volume 94.9 fL (80.0-100.0) Mean Corpuscular Hemoglobin 33.1 pg (28.0-32.0) Mean Corpuscular Hemoglobin Concent 34.9 g/dL (32.0-36.0) Red Cell Distribution Width 14.4 % (11.8-14.3) Platelet Count 116 10^3/uL (140-450) Mean Platelet Volume 8.4 fL (6.9-10.8) Neutrophils (%) (Auto) 55.6 % (37.0-80.0) Lymphocytes (%) (Auto) 27.7 % (10.0-50.0) Monocytes (%) (Auto) 12.6 % (0.0-12.0) Eosinophils (%) (Auto) 3.5 % (0.0-7.0) Basophils (%) (Auto) 0.6 % (0.0-2.0) Neutrophils # (Auto) 3.2 10 ^3/uL (1.6-8.6) Lymphocytes # (Auto) 1.6 10 ^3/uL (0.4-5.4) Monocytes # (Auto) 0.7 10 ^3/uL (0-1.3) Eosinophils # (Auto) 0.2 10 ^3/uL (0-0.8) Basophils # (Auto) 0 10 ^3/uL (0-0.2) Nucleated Red Blood Cells 0.1 % Sodium Level 142 mmol/L (136-145) Potassium Level 3.9 mmol/L (3.5-5.1) Chloride Level 107 mmol/L (98-107) Carbon Dioxide Level 25 mmol/L (20-31) Anion Gap 10 (5-15) Blood Urea Nitrogen 11 mg/dL (9-23) Creatinine 0.82 mg/dL (0.700-1.30) Glomerular Filtration Rate Calc 96 mL/min (>90) BUN/Creatinine Ratio 13.4 (10.0-20.0) Serum Glucose 107 mg/dL (74-106) Calcium Level 9.1 mg/dL (8.7-10.4) Influenza Type A Antigen Negative (Negative) Influenza Type B Antigen Negative (Negative) SARS-CoV-2 Antigen (Rapid) Negative (NEGATIVE) Total Bilirubin 0.8 mg/dL (0.2-1.0) Direct Bilirubin 0.3 mg/dL (<0.3) Aspartate Amino Transferase (AST) 28 U/L (13-40) Alanine Aminotransferase (ALT) 38 U/L (7-40) Alkaline Phosphatase 61 U/L (46-116) Total Protein 6.8 g/dL (5.7-8.2) Albumin 4.0 g/dL (3.2-4.8) Test 06/30/25 21:08 06/30/25 17:26 Prothrombin Time 11.0 sec (9.3-11.8) Prothrombin Time INR 1.04 (0.9-1.15) Activated Partial Thromboplast Time 29.1 SEC (24.5-34.5) Hemoglobin A1c 6.1 % A1C (<5.7) Phosphorus Level 3.2 mg/dL (2.4-5.1) Magnesium Level 1.9 mg/dL (1.6-2.6) Troponin I High Sensitivity < 3 ng/L (</=54) C-Reactive Protein High Sensitivity 0.10 mg/dL (<1.0) Triglycerides Level 66 mg/dL (< 150) Cholesterol Level 113 mg/dL (< 200) LDL Cholesterol 47 mg/dL (< 100) HDL Cholesterol 50 mg/dL (40-59) Lipase 33 U/L (12-53) Vitamin B12 Level 539 pg/mL (211-911) Vitamin D 25-Hydroxy 40.8 ng/mL (30.0-100) Thyroid Stimulating Hormone (TSH) 2.92 uIU/mL (0.55-4.78) Other Laboratory Tests 07/02/25 05:00 Brief Hx & Hospital Course: Covering: A 65-year-old male patient; multiple comorbidities; who presented to emergency department or presyncope. Details as below. For further detail please kindly refer to EMR Presyncope most likely related to brief bradycardia that resolved, acute hemorrhagic/ischemic stroke ruled out Old infarct with no residual deficits Paroxysmal atrial fibrillation; now in normal sinus rhythm Hypertensive heart disease with diastolic heart failure; not in exacerbation; was in hypertensive crisis Type 2 diabetes mellitus Thrombocytopenia; unclear etiology Dyslipidemia Overweight Was on telemetry Reviewed EKG, lab workup, and imaging studies Reviewed echocardiogram from April 2025 To discontinue home diltiazem Started on nifedipine extended release 90 mg daily To continue home aspirin and statin along with Eliquis and metoprolol succinate Was treated with therapeutic enoxaparin during admission To follow up with discharge clinic within one week and with his primary care provider within 1 to 2 weeks Treated with insulin management during admission; to resume home metformin upon discharge No symptoms/signs of bleeding Counseled the patient on the importance of adopting healthy lifestyle with diet and exercise in order to lose weight Late Entry. This medical document was created using an electronic medical record system with computerized dictation system. Although this document has been carefully reviewed, there might still be some phonetic and typographical errors. These areas are purely typographical due to imperfections of the software programs, and do not reflect any compromise in the patient's medical care. Condition at Discharge: Stable Final Diagnosis/Problems List Presyncope due to hypertensive crisis Rest of diagnoses as above Discharge Disposition: Home Discharge Instruct/Medications Diet: Consistent carbohydrate, Cardiac 2g Na,low cholest Activity: No Restrictions, As Tolerated Follow Up/Referral: Dr. Flowers on Friday07/04/2025 at 1 pm at [facility]. Medications: Continue home medication except diltiazem. Prescribed nifedipine extended release 90 mg daily and clonidine 0.1 mg as needed 3 times a day for systolic blood pressure above 150 Scheduled Apixaban Base (Eliquis), 5 MG PO BID Aspirin (Aspirin Low Dose), 81 MG PO DAILY Atorvastatin Calcium (Atorvastatin Calcium), 40 MG PO HS Metformin Hydrochloride (Metformin Hcl), 1,000 MG PO BID Metoprolol Succinate (Toprol Xl), 50 MG PO DAILY Nifedipine (Nifedipine Er), 90 MG PO DAILY Scheduled PRN Clonidine Hydrochloride (Clonidine Hcl), 0.1 MG PO TID PRN Discontinued Medications Apixaban Base (Eliquis), 1 TAB PO BID, (Reported) Aspirin (Aspirin Low Dose), 81 MG PO DAILY Atorvastatin Calcium (Lipitor), 20 MG PO HS, (Reported) Diltiazem HCl Coated Beads (Cardizem Cd), 120 MG PO DAILY Metformin Hydrochloride (Metformin Hcl), 1 TAB PO BID, (Reported) Metoprolol Succinate (Metoprolol Succinate Er), 1 TAB PO DAILY, (Reported) Discharge Statement: "Patient was advised to return to the ER or call 911 if any headaches, dizziness, shortness of breath, chest pain, abdominal pain, bleeding, fevers, or worsening of medical condition. Patient was counseled about treatment plan, medications, possible side effects, patientverbalized understanding. All questions were answered to the best of my ability. This discharge took greater then 30 minutes in planning, reviewing documentation, counseling the patient, and discussing with other team members." ASSESSMENT ASSESSMENT Assessment Presyncope due to hypertensive crisis Date of Service: Jul 02, 2025 Billing Provider: YASMINE FLOWERS MD Common Visit Codes: 10775-CTZ/OBS DISCH DAY >30min YASMINE FLOWERS MD Jul 02, 2025 10:31
[2025-07-02 11:16] VITALS: BP 154/102; PULSE 77; RESP 21; TEMP 36.5; O2SAT 99
[2025-07-02] MEDS ORDERED: ASPI-325 PO (12:11)
[2025-07-02] MEDS ORDERED: APIX5TAB PO (12:11)
[2025-07-02] MEDS ORDERED: METO-6 PO (12:11)
[2025-07-02] MEDS ORDERED: ATOR20TA50 PO (12:11)
[2025-07-02] MEDS ORDERED: METF-372 PO (12:11)
== END 2025-07-02 12:35 | disposition home or self-care (01) | DRG 305 ==
LOC: ER 11:49 → OVERFLOW 21:54 → TELE-WESTW 23:49
PROVIDERS: ADMIT Internal Medicine; ATTEND Emergency Medicine
DX: I16.9 Hypertensive crisis, unspecified (principal); I50.32 Chronic diastolic (congestive) heart failure; D69.6 Thrombocytopenia, unspecified; E11.9 Type 2 diabetes mellitus without complications; I11.0 Hypertensive heart disease with heart failure; I48.0 Paroxysmal atrial fibrillation; Z20.822 Contact with and (suspected) exposure to COVID-19; G43.909 Migraine, unspecified, not intractable, without status migrainosus; F41.9 Anxiety disorder, unspecified; E78.5 Hyperlipidemia, unspecified; E66.3 Overweight; Z86.73 Personal history of transient ischemic attack (TIA), and cerebral infarction without residual deficits; Z68.26 Body mass index [BMI] 26.0-26.9, adult; Z79.84 Long term (current) use of oral hypoglycemic drugs; Z79.82 Long term (current) use of aspirin
CPT/HCPCS: 36415; 70450; 70551; 71045; 80048; 80061; 80076; 82306; 82607; 82962; 83036; 83690; 83735; 84100; 84443; 84484; 85025; 85610; 85730; 86141; 87426; 87804; 93005; 96374; 96375; 99291; G0378; J1815